=== PATIENT | male | born 1975 ===

== ENCOUNTER 2020-10-28 01:10 | Inpatient (IN) | payer OTHER, SELFPAY ==
--- NOTE | 2020-10-28 01:33 | Emergency Department Report ---
ED General Adult HPI - General Chief complaint: Dyspnea/Respdistress Stated complaint: HAJA, COVID PUI?: Yes Time Seen by Provider: 10/28/20 01:14 Source: patient, EMS ( EMS documentation not available at time of chart dic tation ), RN notes reviewed Mode of arrival: Stretcher Limitations: Physical Limitation - History of Present Illness Initial comments: The patient was evaluated in the emergency department for symptoms described in the history of present illness. He/she was evaluated in the context of the global COVID-19 pandemic, which necessitated consideration that the patient might be at risk for infection with the virus that causes COVID-19. Institutional protocols and algorithms that pertain to the evaluation of patients at risk for COVID-19 are in a state of rapid change based on information released by regulatory bodies including the CDC and federal and state organizations. These policies and algorithms were followed during the patient's care in the emergency department. Please note that these policies, procedures and recommendations changed on a rapid basis. Primary CARE doctor: Sade miles The patient is a 44-year-old gentleman. He was diagnosed with Covid around 7 to 8 days ago. He is brought to the hospital by emergency medical services with a complaint of chest tightness, cough, shortness of breath, malaise and fatigue. -: Gradual, days(s) Location: head, chest, back, left, right, upper extremity, lower extremity Quality: aching Consistency: constant Improves with: rest Worsens with: movement - Related Data Home Medications Medication Instructions Recorded Confirmed Last Taken Aspirin BABY CHEW TAB 81 mg PO DAILY 10/28/20 10/28/20 Unknown Metoprolol 12.5 mg PO BID 10/28/20 10/28/20 10/26/20 Vitamin C 1 tab PO DAILY 10/28/20 10/28/20 10/26/20 Allergies Allergy/AdvReac Type Severity Reaction Status Date / Time No Known Allergies Allergy Verified 10/28/20 01:30 ED Review of Systems ROS: Stated complaint: HAJA, COVID Other details as noted in HPI Constitutional: malaise, weakness, other (Loss of taste and smell) ENT: congestion Respiratory: cough, shortness of breath Cardiovascular: chest pain Gastrointestinal: denies: abdominal pain, vomiting Genitourinary: denies: dysuria Musculoskeletal: arthralgia, myalgia Neurological: headache, weakness Psychiatric: anxiety ED Past Medical Hx - Medications Home Medications: Home Medications Medication Instructions Recorded Confirmed Last Taken Type Aspirin BABY CHEW TAB 81 mg PO DAILY 10/28/20 10/28/20 Unknown History Metoprolol 12.5 mg PO BID 10/28/20 10/28/20 10/26/20 History Vitamin C 1 tab PO DAILY 10/28/20 10/28/20 10/26/20 History ED Physical Exam - General Limitations: Physical Limitation General appearance: alert, anxious - Head Head exam: Present: atraumatic, normocephalic - Eye Eye exam: Present: normal appearance, EOMI. Absent: nystagmus - ENT ENT exam: Present: normal exam, normal orophraynx, mucous membranes moist, normal external ear exam - Neck Neck exam: Present: normal inspection, full ROM. Absent: tenderness, meningismus - Respiratory Respiratory exam: Present: respiratory distress, accessory muscle use, other (Pulmonary auscultation not performed secondary to lack of disposable stethoscope). Absent: stridor - Cardiovascular Cardiovascular Exam: Present: tachycardia (Tachycardic rate on monitor), other (Cardiac auscultation not performed secondary to lack of disposable stethoscope) - GI/Abdominal GI/Abdominal exam: Present: soft. Absent: distended, tenderness, guarding, rebound, rigid, pulsatile mass - Rectal Rectal exam: Present: deferred - Extremities Exam Extremities exam: Present: normal inspection, full ROM, other (2+ pulses noted in the bilateral upper and lower extremities. There is no palpable cord. negative Homans sign. Muscular compartments are soft. The pelvis is stable.). Absent: pedal edema, calf tenderness - Back Exam Back exam: Present: normal inspection, full ROM. Absent: tenderness, CVA tenderness (R), CVA tenderness (L), paraspinal tenderness, vertebral tenderness - Neurological Exam Neurological exam: Present: alert, other (No facial droop. Tongue midline. Extraocular movements intact bilaterally. Facial sensation intact to light touch in V1, V2, V3 distribution bilaterally. 5 and a 5 strength in 4 extremities. Sensation intact to light touch in 4 extremities.). Absent: motor sensory deficit - Psychiatric Psychiatric exam: Present: anxious - Skin Skin exam: Present: warm, dry, intact, normal color. Absent: rash ED Course Vital Signs 10/28/20 10/28/20 10/28/20 01:20 01:30 01:46 Temperature 98.5 F Pulse Rate 109 H 108 H 114 H Respiratory 40 H 45 H 28 H Rate Blood Pressure 133/92 122/88 Blood Pressure 133/92 [Left] O2 Sat by Pulse 98 98 99 Oximetry 10/28/20 10/28/20 10/28/20 01:47 02:00 02:16 Temperature Pulse Rate 108 H 105 H Respiratory 18 26 H 43 H Rate Blood Pressure 117/87 118/85 Blood Pressure [Left] O2 Sat by Pulse 100 Oximetry 10/28/20 10/28/20 10/28/20 02:30 02:46 02:47 Temperature Pulse Rate 105 H 105 H Respiratory 38 H 22 18 Rate Blood Pressure 128/79 127/86 Blood Pressure [Left] O2 Sat by Pulse 99 99 Oximetry 10/28/20 10/28/20 10/28/20 03:00 03:16 03:30 Temperature Pulse Rate 102 H 97 H 97 H Respiratory 29 H 35 H 38 H Rate Blood Pressure 125/86 116/80 118/81 Blood Pressure [Left] O2 Sat by Pulse 98 100 100 Oximetry 10/28/20 10/28/20 10/28/20 03:46 04:30 04:46 Temperature Pulse Rate 101 H 105 H 99 H Respiratory 37 H 39 H 46 H Rate Blood Pressure 116/78 121/80 118/78 Blood Pressure [Left] O2 Sat by Pulse 98 95 97 Oximetry 10/28/20 04:50 Temperature Pulse Rate 96 H Respiratory 34 H Rate Blood Pressure 118/78 Blood Pressure [Left] O2 Sat by Pulse 99 Oximetry - Reevaluation(s) Reevaluation #1: 10/28/20 02:57 Patient improved on high flow high humidity nasal cannula. Laboratory studies reviewed and appreciated. Transaminitis likely secondary to Covid. [facility] physician, Dr. Moran to admit to [facility] ED Medical Decision Making - Lab Data Result diagrams: 10/29/20 05:50 10/30/20 05:46 Vital Signs 10/28/20 10/28/20 10/28/20 01:20 01:47 02:00 Temperature 98.5 F Pulse Rate 109 H Respiratory 40 H 18 Rate Blood Pressure 133/92 [Left] O2 Sat by Pulse 98 99 Oximetry Lab Results 10/28/20 10/28/20 10/28/20 Range/Units 01:58 01:58 01:58 WBC 11.0 (4.5-11.0) K/mm3 RBC 4.73 (3.65-5.03) M/mm3 Hgb 15.4 H (11.8-15.2) gm/dl Hct 42.8 (35.5-45.6) % MCV 91 (84-94) fl MCH 33 H (28-32) pg MCHC 36 H (32-34) % RDW 13.8 (13.2-15.2) % Plt Count 267 (140-440) K/mm3 Add Manual Diff Complete Total Counted 100 Seg Neutrophils % Grit Removal Operator Seg Neuts % (Manual) 97.0 H (40.0-70.0) % Lymphocytes % (Manual) 1.0 L (13.4-35.0) % Monocytes % (Manual) 2.0 (0.0-7.3) % Nucleated RBC % Not Reportable Seg Neutrophils # Man 10.7 H (1.8-7.7) K/mm3 Band Neutrophils # 0.0 K/mm3 Lymphocytes # (Manual) 0.1 L (1.2-5.4) K/mm3 Abs React Lymphs (Man) 0.0 K/mm3 Monocytes # (Manual) 0.2 (0.0-0.8) K/mm3 Eosinophils # (Manual) 0.0 (0.0-0.4) K/mm3 Basophils # (Manual) 0.0 (0.0-0.1) K/mm3 Metamyelocytes # 0.0 K/mm3 Myelocytes # 0.0 K/mm3 Promyelocytes # 0.0 K/mm3 Blast Cells # 0.0 K/mm3 WBC Morphology Not Reportable Hypersegmented Neuts Not Reportable Hyposegmented Neuts Not Reportable Hypogranular Neuts Not Reportable Smudge Cells Not Reportable Toxic Granulation Not Reportable Toxic Vacuolation Not Reportable Dohle Bodies Not Reportable Pelger-Huet Anomaly Not Reportable Trey Rods Not Reportable Platelet Estimate Consistent w auto Clumped Platelets Not Reportable Plt Clumps, EDTA Not Reportable Large Platelets Not Reportable Giant Platelets Not Reportable Platelet Satelliting Not Reportable Plt Morphology Comment Not Reportable RBC Morphology Normal Dimorphic RBCs Not Reportable Polychromasia Not Reportable Hypochromasia Not Reportable Poikilocytosis Not Reportable Anisocytosis Not Reportable Microcytosis Not Reportable Macrocytosis Not Reportable Spherocytes Not Reportable Pappenheimer Bodies Not Reportable Sickle Cells Not Reportable Target Cells Not Reportable Tear Drop Cells Not Reportable Ovalocytes Not Reportable Helmet Cells Not Reportable [place] Bodies Not Reportable [place] Rings Not Reportable [place] Cells Not Reportable Bite Cells Not Reportable Crenated Cell Not Reportable Elliptocytes Not Reportable Acanthocytes (Spur) Not Reportable Rouleaux Not Reportable Hemoglobin C Crystals Not Reportable Schistocytes Not Reportable Malaria parasites Not Reportable Froylan Bodies Not Reportable Hem Pathologist Commnt No PT (12.2-14.9) Sec. INR (0.87-1.13) D-Dimer (0-234) ng/mlDDU Sodium 135 L (137-145) mmol/L Potassium 3.6 (3.6-5.0) mmol/L Chloride 96.1 L (98-107) mmol/L Carbon Dioxide 26 (22-30) mmol/L Anion Gap 17 mmol/L BUN 8 L (9-20) mg/dL Glucose 130 H (75-100) mg/dL Lactic Acid 1.40 (0.7-2.0) mmol/L Calcium 8.8 (8.4-10.2) mg/dL Magnesium 2.20 (1.7-2.3) mg/dL Total Bilirubin 1.00 (0.1-1.2) mg/dL AST 45 H (5-40) units/L ALT 69 H (7-56) units/L Alkaline Phosphatase 189 H (35-129) units/L Lactate Dehydrogenase (91-180) units/L Troponin T (0.00-0.029) ng/mL C-Reactive Protein (0.00-1.30) mg/dL NT-Pro-B Natriuret Pep (0-450) pg/mL Total Protein 7.7 (6.3-8.2) g/dL Albumin 3.6 L (3.9-5) g/dL Albumin/Globulin Ratio 0.9 % 10/28/20 10/28/20 10/28/20 Range/Units 01:58 01:58 01:58 WBC (4.5-11.0) K/mm3 RBC (3.65-5.03) M/mm3 Hgb (11.8-15.2) gm/dl Hct (35.5-45.6) % MCV (84-94) fl MCH (28-32) pg MCHC (32-34) % RDW (13.2-15.2) % Plt Count (140-440) K/mm3 Add Manual Diff Total Counted Seg Neutrophils % Seg Neuts % (Manual) (40.0-70.0) % Lymphocytes % (Manual) (13.4-35.0) % Monocytes % (Manual) (0.0-7.3) % Nucleated RBC % Seg Neutrophils # Man (1.8-7.7) K/mm3 Band Neutrophils # K/mm3 Lymphocytes # (Manual) (1.2-5.4) K/mm3 Abs React Lymphs (Man) K/mm3 Monocytes # (Manual) (0.0-0.8) K/mm3 Eosinophils # (Manual) (0.0-0.4) K/mm3 Basophils # (Manual) (0.0-0.1) K/mm3 Metamyelocytes # K/mm3 Myelocytes # K/mm3 Promyelocytes # K/mm3 Blast Cells # K/mm3 WBC Morphology Hypersegmented Neuts Hyposegmented Neuts Hypogranular Neuts Smudge Cells Toxic Granulation Toxic Vacuolation Dohle Bodies Pelger-Huet Anomaly Trey Rods Platelet Estimate Clumped Platelets Plt Clumps, EDTA Large Platelets Giant Platelets Platelet Satelliting Plt Morphology Comment RBC Morphology Dimorphic RBCs Polychromasia Hypochromasia Poikilocytosis Anisocytosis Microcytosis Macrocytosis Spherocytes Pappenheimer Bodies Sickle Cells Target Cells Tear Drop Cells Ovalocytes Helmet Cells [place] Bodies [place] Rings Faheem Cells Bite Cells Crenated Cell Elliptocytes Acanthocytes (Spur) Rouleaux Hemoglobin C Crystals Schistocytes Malaria parasites Froylan Bodies Hem Pathologist Commnt PT 13.2 (12.2-14.9) Sec. INR 1.01 (0.87-1.13) D-Dimer 227.37 (0-234) ng/mlDDU Sodium (137-145) mmol/L Potassium (3.6-5.0) mmol/L Chloride (98-107) mmol/L Carbon Dioxide (22-30) mmol/L Anion Gap mmol/L BUN (9-20) mg/dL Glucose Cancelled (75-100) mg/dL Lactic Acid (0.7-2.0) mmol/L Calcium (8.4-10.2) mg/dL Magnesium (1.7-2.3) mg/dL Total Bilirubin (0.1-1.2) mg/dL AST (5-40) units/L ALT (7-56) units/L Alkaline Phosphatase (35-129) units/L Lactate Dehydrogenase 339 H (91-180) units/L Troponin T 0.022 (0.00-0.029) ng/mL C-Reactive Protein 32.80 H (0.00-1.30) mg/dL NT-Pro-B Natriuret Pep 1661 H (0-450) pg/mL Total Protein (6.3-8.2) g/dL Albumin (3.9-5) g/dL Albumin/Globulin Ratio % - EKG Data -: EKG Interpreted by Me EKG shows normal: sinus rhythm Rate: tachycardia - EKG Data When compared to previous EKG there are: previous EKG unavailable 10/28/20 02:03 EKG interpreted at 01: 54 Sinus rhythm, tachycardia, 109 bpm. Normal axis, right bundle branch block, QTC prolonged, 503 ms. OK interval 163 ms. This is an abnormal EKG. This is not a STEMI. There is no prior for comparison. - Radiology Data Radiology results: pending, report reviewed, image reviewed interpreted by me: 1 view x-ray of the chest shows multilobar infiltrates. No obvious pneumothorax. [facility] [address] [place] [address] XRay Report Signed Patient: BENITEZ GIRALDO MR#: [id number] : 1975 Acct:[id number] Age/Sex: 44 / M ADM Date: 10/28/20 Loc: ED Attending Dr: Ordering Physician: JULIO MC MD Date of Service: 10/28/20 Procedure(s): XR chest 1V ap Accession Number(s): [id number] cc: JULIO MC MD Fluoro Time In Minutes: CHEST 1 VIEW INDICATION: Dyspnea COMPARISON: None FINDINGS: SUPPORT DEVICES: None. HEART / MEDIASTINUM: No significant abnormality. LUNGS / PLEURA: Diffuse interstitial and patchy airspace pulmonary process.. No pneumothorax. ADDITIONAL FINDINGS: IMPRESSION: 1. Diffuse pulmonary process, pulmonary edema is a concern. Pneumonia could have a similar appearance Signer Name: Mikael Soares MD Signed: 10/28/2020 2:01 AM Workstation Name: [id number] Transcribed By: RAJAN Dictated By: Mikael Soares MD Electronically Authenticated By: Mikael Soares MD Signed Date/Time: 10/28/20200 DD/ 0 - Medical Decision Making Differential diagnosis, including but not limited to: COVID-19, respiratory failure, Covid pneumonia Assessment and plan: 44-year-old gentleman diagnosed with Covid about 8 days ago, presenting with probable symptomatic Covid, manifest by tachycardia, tachypnea, hypoxia, and multiple pulmonary infiltrates. Place patient on tube backer, isolation, and obtain appropriate laboratory studies. Start antibiotics, steroids, and high flow high humidity nasal cannula . Please courtesy consultation for infectious disease, defer to inpatient team to follow-up. I recommended admission for the aforementioned. Patient agreeable to this plan of care. Appreciate the patient meets systemic inflammatory response syndrome criteria, manifest by the aforementioned abnormal vital signs, however, given Covid propensity to develop acute respiratory distress syndrome, we will withhold 30 cc/kg bolus of IV fluids. We will provide gentle hydration. Critical Care Time: Yes Critical care time in (mins) excluding proc time.: 35 Critical care attestation.: If time is entered above; I have spent that time in minutes in the direct care of this critically ill patient, excluding procedure time. ED Disposition Clinical Impression: COVID-19, Acute respiratory failure with hypoxia Disposition: OP ADMIT IP TO THIS HOSP Is pt being admited?: Yes Does the pt Need Aspirin: No Condition: Serious
[2020-10-28] MEDS: dexAMETHasone 4 MG/ML VIAL IV ONE (01:47)
[2020-10-28] MEDS: ACETAMINOPHEN 325 MG TAB PO ONE (01:47)
[2020-10-28] MEDS ORDERED: AZITHROMYCIN/NS 500 MG/250 ML 500 MG/250 ML BAG IV ONE (02:00)
[2020-10-28] MEDS ORDERED: cefTRIAXone/NS 1 GM/50 ML 1 GM/50 ML BAG IV ONE (02:00)
[2020-10-28] MEDS ORDERED: SODIUM CHLORIDE 0.9% 1000 ML 1,000 ML IV ONE (02:04)
--- NOTE | 2020-10-28 02:06 | XRay Report ---
CHEST 1 VIEW INDICATION: Dyspnea COMPARISON: None FINDINGS: SUPPORT DEVICES: None. HEART / MEDIASTINUM: No significant abnormality. LUNGS / PLEURA: Diffuse interstitial and patchy airspace pulmonary process.. No pneumothorax. ADDITIONAL FINDINGS: IMPRESSION: 1. Diffuse pulmonary process, pulmonary edema is a concern. Pneumonia could have a similar appearance Signer Name: Mikael Soares MD Signed: 10/28/2020 2:01 AM Workstation Name: [id number]
[2020-10-28 02:14] LABS: Mean Corpuscular HGB Conc 36 % (32-34); Mean Corpuscular Volume 91 fl (84-94); Platelet Count 267 K/mm3 (140-440); Red Blood Count 4.73 M/mm3 (3.65-5.03); Red Cell Distribution Width 13.8 % (13.2-15.2)
[2020-10-28 02:15] LABS: Hematocrit 42.8 % (35.5-45.6); Hemoglobin 15.4 gm/dl (11.8-15.2)
[2020-10-28 02:24] LABS: INR 1.01 (0.87-1.13)
[2020-10-28 02:45] LABS: Total Cells Counted 100
[2020-10-28 02:46] LABS: Platelet Estimate Consistent w Auto; RBC Morphology Normal
[2020-10-28 02:51] LABS: Alanine Aminotransferase 69 units/L (7-56); Albumin 3.6 g/dL (3.9-5); Blood Urea Nitrogen 8 mg/dL (9-20); Calcium 8.8 mg/dL (8.4-10.2); Hemolysis Index 1
[2020-10-28 02:52] LABS: C-Reactive Protein 32.8 mg/dL (0.00-1.30)
[2020-10-28 03:03] LABS: BUN/Creatinine Ratio 13
[2020-10-28] MEDS ORDERED: ALBUTEROL 2.5 MG/3 ML NEBU IH PRN (03:35)
[2020-10-28] MEDS ORDERED: ONDANSETRON 4 MG/2 ML INJ IV PRN (03:35)
[2020-10-28] MEDS ORDERED: hydrALAZINE 20 MG/1 ML INJ IV PRN (03:36)
--- NOTE | 2020-10-28 03:43 | History and Physical Report ---
History of Present Illness Date of examination: 10/28/20 Date of admission: 10/28/20 02:57 Chief complaint: Dyspnea Respiratory distress COVID-19 History of present illness: 44-year-old gentleman with no significant past medical history was brought to the emergency room because of shortness of breath coughing and chest tightness . Patient was diagnosed with Covid around 7 to 8 days ago. He is brought to the hospital by emergency medical services with a complaint of chest tightness, cough, shortness of breath, malaise and fatigue. In the emergency room patient is found to have acute hypoxic respiratory failure and Covid pneumonia Medications and Allergies Allergies Allergy/AdvReac Type Severity Reaction Status Date / Time No Known Allergies Allergy Verified 10/28/20 01:30 Review of Systems Constitutional: fatigue, malaise Cardiovascular: shortness of breath, dyspnea on exertion Respiratory: cough, shortness of breath, dyspnea on exertion Exam - Constitutional Vitals: Temp Pulse Resp BP Pulse Ox 98.5 F 109 H 18 133/92 99 10/28/20 01:20 10/28/20 01:20 10/28/20 01:47 10/28/20 01:20 10/28/20 02:00 General appearance: Present: no acute distress, well-nourished - EENT Eyes: Present: PERRL ENT: hearing intact, clear oral mucosa - Neck Neck: Present: supple, normal ROM - Respiratory Respiratory effort: labored, other (respiratory distress, accessory muscle use, other (Pulmonary auscultation not performed secondary to lack of disposable stethoscope). Absent: stridor) Respiratory: bilateral: diminished - Cardiovascular Heart Sounds: Present: S1 & S2. Absent: rub, click - Extremities Extremities: pulses symmetrical, No edema Peripheral Pulses: within normal limits - Abdominal General gastrointestinal: Present: soft, non-tender, non-distended, normal bowel sounds Male genitourinary: Present: normal - Integumentary Integumentary: Present: clear, warm, dry - Musculoskeletal Musculoskeletal: gait normal, strength equal bilaterally - Psychiatric Psychiatric: appropriate mood/affect, intact judgment & insight - Neurologic Neurologic: CNII-XII intact, moves all extremities HEART Score - HEART Score Troponin: Troponin T 0.022 ng/mL (0.00-0.029) 10/28/20 01:58 Results - Labs CBC & Chem 7: 10/28/20 01:58 10/28/20 01:58 Labs: Laboratory Last Values WBC 11.0 K/mm3 (4.5-11.0) 10/28/20 01:58 RBC 4.73 M/mm3 (3.65-5.03) 10/28/20 01:58 Hgb 15.4 gm/dl (11.8-15.2) H 10/28/20 01:58 Hct 42.8 % (35.5-45.6) 10/28/20 01:58 MCV 91 fl (84-94) 10/28/20 01:58 MCH 33 pg (28-32) H 10/28/20 01:58 MCHC 36 % (32-34) H 10/28/20 01:58 RDW 13.8 % (13.2-15.2) 10/28/20 01:58 Plt Count 267 K/mm3 (140-440) 10/28/20 01:58 Add Manual Diff Complete 10/28/20 01:58 Total Counted 100 10/28/20 01:58 Seg Neutrophils % Rivet Tosser 10/28/20 01:58 Seg Neuts % (Manual) 97.0 % (40.0-70.0) H 10/28/20 01:58 Lymphocytes % (Manual) 1.0 % (13.4-35.0) L 10/28/20 01:58 Monocytes % (Manual) 2.0 % (0.0-7.3) 10/28/20 01:58 Nucleated RBC % Not Reportable 10/28/20 01:58 Seg Neutrophils # Man 10.7 K/mm3 (1.8-7.7) H 10/28/20 01:58 Band Neutrophils # 0.0 K/mm3 10/28/20 01:58 Lymphocytes # (Manual) 0.1 K/mm3 (1.2-5.4) L 10/28/20 01:58 Abs React Lymphs (Man) 0.0 K/mm3 10/28/20 01:58 Monocytes # (Manual) 0.2 K/mm3 (0.0-0.8) 10/28/20 01:58 Eosinophils # (Manual) 0.0 K/mm3 (0.0-0.4) 10/28/20 01:58 Basophils # (Manual) 0.0 K/mm3 (0.0-0.1) 10/28/20 01:58 Metamyelocytes # 0.0 K/mm3 10/28/20 01:58 Myelocytes # 0.0 K/mm3 10/28/20 01:58 Promyelocytes # 0.0 K/mm3 10/28/20 01:58 Blast Cells # 0.0 K/mm3 10/28/20 01:58 WBC Morphology Not Reportable 10/28/20 01:58 Hypersegmented Neuts Not Reportable 10/28/20 01:58 Hyposegmented Neuts Not Reportable 10/28/20 01:58 Hypogranular Neuts Not Reportable 10/28/20 01:58 Smudge Cells Not Reportable 10/28/20 01:58 Toxic Granulation Not Reportable 10/28/20 01:58 Toxic Vacuolation Not Reportable 10/28/20 01:58 Dohle Bodies Not Reportable 10/28/20 01:58 Pelger-Huet Anomaly Not Reportable 10/28/20 01:58 Trey Rods Not Reportable 10/28/20 01:58 Platelet Estimate Consistent w auto 10/28/20 01:58 Clumped Platelets Not Reportable 10/28/20 01:58 Plt Clumps, EDTA Not Reportable 10/28/20 01:58 Large Platelets Not Reportable 10/28/20 01:58 Giant Platelets Not Reportable 10/28/20 01:58 Platelet Satelliting Not Reportable 10/28/20 01:58 Plt Morphology Comment Not Reportable 10/28/20 01:58 RBC Morphology Normal 10/28/20 01:58 Dimorphic RBCs Not Reportable 10/28/20 01:58 Polychromasia Not Reportable 10/28/20 01:58 Hypochromasia Not Reportable 10/28/20 01:58 Poikilocytosis Not Reportable 10/28/20 01:58 Anisocytosis Not Reportable 10/28/20 01:58 Microcytosis Not Reportable 10/28/20 01:58 Macrocytosis Not Reportable 10/28/20 01:58 Spherocytes Not Reportable 10/28/20 01:58 Pappenheimer Bodies Not Reportable 10/28/20 01:58 Sickle Cells Not Reportable 10/28/20 01:58 Target Cells Not Reportable 10/28/20 01:58 Tear Drop Cells Not Reportable 10/28/20 01:58 Ovalocytes Not Reportable 10/28/20 01:58 Helmet Cells Not Reportable 10/28/20 01:58 [place] Bodies Not Reportable 10/28/20 01:58 [place] Rings Not Reportable 10/28/20 01:58 [place] Cells Not Reportable 10/28/20 01:58 Bite Cells Not Reportable 10/28/20 01:58 Crenated Cell Not Reportable 10/28/20 01:58 Elliptocytes Not Reportable 10/28/20 01:58 Acanthocytes (Spur) Not Reportable 10/28/20 01:58 Rouleaux Not Reportable 10/28/20 01:58 Hemoglobin C Crystals Not Reportable 10/28/20 01:58 Schistocytes Not Reportable 10/28/20 01:58 Malaria parasites Not Reportable 10/28/20 01:58 Froylan Bodies Not Reportable 10/28/20 01:58 Hem Pathologist Commnt No 10/28/20 01:58 PT 13.2 Sec. (12.2-14.9) 10/28/20 01:58 INR 1.01 (0.87-1.13) 10/28/20 01:58 D-Dimer 227.37 ng/mlDDU (0-234) 10/28/20 01:58 Sodium 135 mmol/L (137-145) L 10/28/20 01:58 Potassium 3.6 mmol/L (3.6-5.0) 10/28/20 01:58 Chloride 96.1 mmol/L (98-107) L 10/28/20 01:58 Carbon Dioxide 26 mmol/L (22-30) 10/28/20 01:58 Anion Gap 17 mmol/L 10/28/20 01:58 BUN 8 mg/dL (9-20) L 10/28/20 01:58 Creatinine 0.6 mg/dL (0.8-1.3) L 10/28/20 01:58 Estimated GFR > 60 ml/min 10/28/20 01:58 BUN/Creatinine Ratio 13 % 10/28/20 01:58 Glucose 130 mg/dL (75-100) H 10/28/20 01:58 Glucose Cancelled 10/28/20 01:58 Lactic Acid 1.40 mmol/L (0.7-2.0) 10/28/20 01:58 Calcium 8.8 mg/dL (8.4-10.2) 10/28/20 01:58 Magnesium 2.20 mg/dL (1.7-2.3) 10/28/20 01:58 Ferritin 1631.0 ng/mL (30.0-300.0) H 10/28/20 01:58 Total Bilirubin 1.00 mg/dL (0.1-1.2) 10/28/20 01:58 AST 45 units/L (5-40) H 10/28/20 01:58 ALT 69 units/L (7-56) H 10/28/20 01:58 Alkaline Phosphatase 189 units/L (35-129) H 10/28/20 01:58 Lactate Dehydrogenase 339 units/L (91-180) H 10/28/20 01:58 Troponin T 0.022 ng/mL (0.00-0.029) 10/28/20 01:58 C-Reactive Protein 32.80 mg/dL (0.00-1.30) H 10/28/20 01:58 NT-Pro-B Natriuret Pep 1661 pg/mL (0-450) H 10/28/20 01:58 Total Protein 7.7 g/dL (6.3-8.2) 10/28/20 01:58 Albumin 3.6 g/dL (3.9-5) L 10/28/20 01:58 Albumin/Globulin Ratio 0.9 % 10/28/20 01:58 - Imaging and Cardiology Chest x-ray: report reviewed Assessment and Plan VTE prophylaxis?: Chemical Plan of care discussed with patient/family: Yes - Patient Problems (1) Acute respiratory failure with hypoxia Current Visit: Yes Status: Acute Plan to address problem: Admit to the medical telemetry high flow oxygen. DuoNeb by nebulizer every 4 hours. Albuterol by nebulizer every 4 hours as needed. Rocephin 2 2 g IV daily and Zithromax 500 mg IV daily. His dexamethasone 6 mg IV daily. We will consult infectious disease for evaluation. Consult pulmonary if needed (2) Pneumonia Current Visit: Yes Status: Acute Plan to address problem: DuoNeb by nebulizer every 4 hours. Albuterol by nebulizer every 4 hours as needed. Rocephin 2 2 g IV daily and Zithromax 500 mg IV daily. His dexamethasone 6 mg IV daily. We will consult infectious disease for evaluation. Consult pulmonary if needed (3) COVID-19 Current Visit: Yes Status: Acute Plan to address problem: DuoNeb by nebulizer every 4 hours. Albuterol by nebulizer every 4 hours as needed. Rocephin 2 2 g IV daily and Zithromax 500 mg IV daily. His dexamethasone 6 mg IV daily. We will consult infectious disease for evaluation. Consult pulmonary if needed. Follow the Covid inflammatory marker and Covid PCR (4) DVT prophylaxis Current Visit: Yes Status: Acute Plan to address problem: Heparin 5000 units subcu every 8 hours for DVT prophylaxis. Protonix 40 mg p.o. daily for GI prophylaxis. Patient is a full code
[2020-10-28] MEDS: HEPARIN 5,000 UNIT/1 ML VIAL SUB-Q SCH ×3 (05:19→20:59)
[2020-10-28] MEDS: PANTOPRAZOLE 40 MG TAB PO SCH (08:04)
--- NOTE | 2020-10-28 08:33 | Event Note ---
Date: 10/28/20 Patient seen and examined, still with severe shortness of breath, on High flow oxygen. Spoke to family and confirmed recent diagnosis of COVID19. Pulmonary consult to assist with management of oxygen Encouraged Prone position.
[2020-10-28] MEDS: IPRATROPIUM/ALBUTEROL SULFATE 3 ML AMPUL.NEB IH SCH ×3 (09:55→20:04)
[2020-10-28] MEDS: dexAMETHasone 4 MG/ML VIAL IV SCH (10:23)
--- NOTE | 2020-10-28 10:47 | Consultation ---
History of Present Illness Consult date: 10/28/20 Reason for consult: dyspnea, cough, hypoxemia, pneumonia History of present illness: 44-year-old gentleman with no significant past medical history was brought to the emergency room because of shortness of breath coughing and chest tightness . Patient was diagnosed with Covid around 7 to 8 days ago. He is brought to the hospital by emergency medical services with a complaint of chest tightness, cough, shortness of breath, malaise and fatigue. In the emergency room patient is found to have acute hypoxic respiratory failure and Covid pneumonia Patient alert, awake. Still complaining shortness of breath even with slight exertion. Still complaining some chest pain. Still has cough mostly non productive. Patient is on Vapotherm, FIO2 65% and O2 saturation running 92%. Increased FIO2 to 70%. Patient running Low grade temp. Has mild leukocytosis. Chest xray done 10/28/20 reported Diffuse pulmonary process, pulmonary edema is a concern. Pneumonia could have a similar appearance. Patient works in construction. Denies smoking, alcohol or drug abuse. and has five children. No known drug allergies. Patient is on Zithromax, Ceftriaxone, dexamethasone, S/C Heparin, Protonix and REMDESIVIR. Medications and Allergies Allergies Allergy/AdvReac Type Severity Reaction Status Date / Time No Known Allergies Allergy Verified 10/28/20 01:30 Home Medications Medication Instructions Recorded Confirmed Last Taken Type Aspirin BABY CHEW TAB 81 mg PO DAILY 10/28/20 10/28/20 Unknown History Metoprolol 12.5 mg PO BID 10/28/20 10/28/20 10/26/20 History Vitamin C 1 tab PO DAILY 10/28/20 10/28/20 10/26/20 History Active Meds: Active Medications Acetaminophen (Acetaminophen 325 Mg Tab) 650 mg PO Q4H PRN PRN Reason: Pain MILD(1-3)/Fever >100.5/RIVERA Albuterol (Albuterol 2.5 Mg/3 Ml Nebu) 2.5 mg IH Q4HRT PRN PRN Reason: Shortness Of Breath Albuterol/Ipratropium (Ipratropium/Albuterol Sulfate 3 Ml Ampul.Neb) 1 ampul IH Q6HRT [facility] Last Admin: 10/28/20 09:55 Dose: Not Given Documented by: Ascorbic Acid (Ascorbic Acid 500 Mg Tab) 1,000 mg PO BID [facility] Cholecalciferol (Cholecalciferol (Vit D3) 5,000 Unit Tab) 5,000 unit PO DAILY [facility] Dexamethasone (Dexamethasone 4 Mg/Ml Vial) 6 mg IV DAILY [facility] Stop: 11/06/20 10:01 Last Admin: 10/28/20 10:23 Dose: 6 mg Documented by: Furosemide (Furosemide 40 Mg/4 Ml Inj) 40 mg IV QDAY [facility] Stop: 10/30/20 10:01 Heparin Sodium (Porcine) (Heparin 5,000 Unit/1 Ml Vial) 5,000 unit SUB-Q Q8HR [facility] Last Admin: 10/28/20 05:19 Dose: 5,000 unit Documented by: Hydralazine HCl (Hydralazine 20 Mg/1 Ml Inj) 10 mg IV Q6H PRN PRN Reason: htn Ceftriaxone Sodium (Rocephin/Ns 2 Gm/100 Ml) 2 gm in 100 mls @ 200 mls/hr IV QHS [facility]; Protocol Stop: 10/31/20 22:29 Azithromycin (Zithromax/Ns) 500 mg in 250 mls @ 250 mls/hr IV QHS [facility]; Protocol Stop: 10/31/20 22:59 Ondansetron HCl (Ondansetron 4 Mg/2 Ml Inj) 4 mg IV Q8H PRN PRN Reason: Nausea And Vomiting Pantoprazole Sodium (Pantoprazole 40 Mg Tab) 40 mg PO QDAC [facility] Last Admin: 10/28/20 08:04 Dose: 40 mg Documented by: Sodium Chloride (Sodium Chloride 0.9% 10 Ml Flush Syringe) 10 ml IV BID [facility] Last Admin: 10/28/20 10:23 Dose: 10 ml Documented by: Sodium Chloride (Sodium Chloride 0.9% 10 Ml Flush Syringe) 10 ml IV PRN PRN PRN Reason: LINE FLUSH Zinc Sulfate (Zinc Sulfate 220 Mg Cap) 220 mg PO QDAY [facility] Review of Systems All systems: negative Physical Examination Vital signs: Vital Signs Temp Pulse Resp BP Pulse Ox 98.5 F 109 H 40 H 133/92 98 10/28/20 01:20 10/28/20 01:20 10/28/20 01:20 10/28/20 01:20 10/28/20 01:20 General appearance: alert, appears uncomfortable, other (Shortness of breath even with slight exertion.) Eyes: non-icteric ENT: oropharynx moist Neck: supple Effort: mildly labored Ascultation: Bilateral: rhonchi Cardiovascular: regular rate and rhythm Gastrointestinal: normoactive bowel sounds, soft, non-tender Integumentary: normal Extremities: no cyanosis, no edema Musculoskeletal: no deformities Gait: other (Can not evaluate. Patient is too sick.) normal mental status, non-focal exam, pupils equal and round, CN II-XII normal mood appropriate Results - Laboratory Findings CBC and BMP: 10/29/20 05:50 10/29/20 05:50 PT/INR, D-dimer PT 13.2 Sec. (12.2-14.9) 10/28/20 01:58 INR 1.01 (0.87-1.13) 10/28/20 01:58 D-Dimer 227.37 ng/mlDDU (0-234) 10/28/20 01:58 Abnormal lab findings: Abnormal Labs 10/28/20 10/28/20 10/28/20 01:58 01:58 01:58 Hgb 15.4 H MCH 33 H MCHC 36 H Seg Neuts % (Manual) 97.0 H Lymphocytes % (Manual) 1.0 L Seg Neutrophils # Man 10.7 H Lymphocytes # (Manual) 0.1 L Sodium 135 L Chloride 96.1 L BUN 8 L Creatinine 0.6 L Glucose 130 H Ferritin AST 45 H ALT 69 H Alkaline Phosphatase 189 H Lactate Dehydrogenase 339 H C-Reactive Protein 32.80 H NT-Pro-B Natriuret Pep Albumin 3.6 L 10/28/20 10/28/20 01:58 01:58 Hgb MCH MCHC Seg Neuts % (Manual) Lymphocytes % (Manual) Seg Neutrophils # Man Lymphocytes # (Manual) Sodium Chloride BUN Creatinine Glucose Ferritin 1631.0 H AST ALT Alkaline Phosphatase Lactate Dehydrogenase C-Reactive Protein NT-Pro-B Natriuret Pep 1661 H Albumin - Diagnostic Findings Chest x-ray: report reviewed, image reviewed Additional studies: CHEST 1 VIEW 10/28/20 INDICATION: Dyspnea COMPARISON: None FINDINGS: SUPPORT DEVICES: None. HEART / MEDIASTINUM: No significant abnormality. LUNGS / PLEURA: Diffuse interstitial and patchy airspace pulmonary process.. No pneumothorax. ADDITIONAL FINDINGS: IMPRESSION: 1. Diffuse pulmonary process, pulmonary edema is a concern. Pneumonia could have a similar appearance Assessment and Plan 44-year-old gentleman with no significant past medical history was brought to the emergency room because of shortness of breath coughing and chest tightness . Patient was diagnosed with Covid around 7 to 8 days ago. He is brought to the hospital by emergency medical services with a complaint of chest tightness, cough, shortness of breath, malaise and fatigue. In the emergency room patient is found to have acute hypoxic respiratory failure and Covid pneumonia Patient alert, awake. Still complaining shortness of breath even with slight exertion. Still complaining some chest pain. Still has cough mostly non productive. Patient is on Vapotherm, FIO2 65% and O2 saturation running 92%. Increased FIO2 to 70%. Patient running Low grade temp. Has mild leukocytosis. Chest xray done 10/28/20 reported Diffuse pulmonary process, pulmonary edema is a concern. Pneumonia could have a similar appearance. Patient works in construction. Denies smoking, alcohol or drug abuse. and has five children. No known drug allergies. Patient is on Zithromax, Ceftriaxone, dexamethasone, S/C Heparin, Protonix and REMDESIVIR. - Patient Problems (1) Acute respiratory failure with hypoxia Current Visit: Yes Status: Acute Plan to address problem: Patient is on High flow O2, Vapotherm, FIO2 70%. Patient is on dexamethasone. S/C Heparin. Protonix. Recommend ABGs. (2) COVID-19 Current Visit: Yes Status: Acute Plan to address problem: Patient is on REMDESIVIR and dexamethasone. Management as per infectious disease specialists. (3) Pneumonia due to COVID-19 virus Current Visit: Yes Status: Acute Plan to address problem: Patient is on ceftriaxone and zithromax.
[2020-10-28] MEDS: ZINC SULFATE 220 MG CAP PO SCH (12:28)
[2020-10-28] MEDS: FUROSEMIDE 40 MG/4 ML INJ IV SCH (12:28)
[2020-10-28] MEDS: CHOLECALCIFEROL (VIT D3) 5,000 UNIT TAB PO SCH (12:29)
[2020-10-28] MEDS: ASCORBIC ACID 500 MG TAB PO SCH ×2 (12:29→21:00)
[2020-10-28] MEDS: ACETAMINOPHEN 325 MG TAB PO PRN ×2 (13:11→21:23)
--- NOTE | 2020-10-28 13:24 | Consultation ---
History of Present Illness - Reason for Consult Consult date: 10/28/20 COVID Requesting physician: JULIO MC - History of Present Illness The patient is a 44-year-old male with no significant past medical history admitted to the hospital with COVID-19, respiratory failure and hypoxia. Having low-grade fever, requiring high flow nasal cannula. Labs revealed ferritin 1631, mild transaminitis, CRP 32.8, LDH 339, D-dimer 227. Procalcitonin is pending. Review of Systems: reviewed in the chart, unable to obtain, minimize risk of transmission Medications and Allergies Allergies Allergy/AdvReac Type Severity Reaction Status Date / Time No Known Allergies Allergy Verified 10/28/20 01:30 Home Medications Medication Instructions Recorded Confirmed Last Taken Type Aspirin BABY CHEW TAB 81 mg PO DAILY 10/28/20 10/28/20 Unknown History Metoprolol 12.5 mg PO BID 10/28/20 10/28/20 10/26/20 History Vitamin C 1 tab PO DAILY 10/28/20 10/28/20 10/26/20 History Active Meds: Active Medications Acetaminophen (Acetaminophen 325 Mg Tab) 650 mg PO Q4H PRN PRN Reason: Pain MILD(1-3)/Fever >100.5/RIVERA Last Admin: 10/28/20 13:11 Dose: 650 mg Documented by: Albuterol (Albuterol 2.5 Mg/3 Ml Nebu) 2.5 mg IH Q4HRT PRN PRN Reason: Shortness Of Breath Albuterol/Ipratropium (Ipratropium/Albuterol Sulfate 3 Ml Ampul.Neb) 1 ampul IH Q6HRT [facility] [place] Last Admin: 10/28/20 09:55 Dose: Not Given Documented by: Ascorbic Acid (Ascorbic Acid 500 Mg Tab) 1,000 mg PO BID [facility] [place] Last Admin: 10/28/20 12:29 Dose: 1,000 mg Documented by: Cholecalciferol (Cholecalciferol (Vit D3) 5,000 Unit Tab) 5,000 unit PO DAILY [facility] Last Admin: 10/28/20 12:29 Dose: 5,000 unit Documented by: Dexamethasone (Dexamethasone 4 Mg/Ml Vial) 6 mg IV DAILY [facility] Stop: 11/06/20 10:01 Last Admin: 10/28/20 10:23 Dose: 6 mg Documented by: Furosemide (Furosemide 40 Mg/4 Ml Inj) 40 mg IV QDAY [facility] [place] Stop: 10/30/20 10:01 Last Admin: 10/28/20 12:28 Dose: 40 mg Documented by: Heparin Sodium (Porcine) (Heparin 5,000 Unit/1 Ml Vial) 5,000 unit SUB-Q Q8HR [facility] Last Admin: 10/28/20 05:19 Dose: 5,000 unit Documented by: Hydralazine HCl (Hydralazine 20 Mg/1 Ml Inj) 10 mg IV Q6H PRN PRN Reason: htn Ceftriaxone Sodium (Rocephin/Ns 2 Gm/100 Ml) 2 gm in 100 mls @ 200 mls/hr IV QHS [facility]; Protocol Stop: 10/31/20 22:29 Azithromycin (Zithromax/Ns) 500 mg in 250 mls @ 250 mls/hr IV QHS [facility] [place]; Protocol Stop: 10/31/20 22:59 Ondansetron HCl (Ondansetron 4 Mg/2 Ml Inj) 4 mg IV Q8H PRN PRN Reason: Nausea And Vomiting Pantoprazole Sodium (Pantoprazole 40 Mg Tab) 40 mg PO QDAC [facility] [place] Last Admin: 10/28/20 08:04 Dose: 40 mg Documented by: Sodium Chloride (Sodium Chloride 0.9% 10 Ml Flush Syringe) 10 ml IV BID [facility] [place] Last Admin: 10/28/20 10:23 Dose: 10 ml Documented by: Sodium Chloride (Sodium Chloride 0.9% 10 Ml Flush Syringe) 10 ml IV PRN PRN PRN Reason: LINE FLUSH Zinc Sulfate (Zinc Sulfate 220 Mg Cap) 220 mg PO QDAY [facility] Last Admin: 10/28/20 12:28 Dose: 220 mg Documented by: Physical Examination - Physical Exam Narrative exam: Physical Exam (reviewed in chart to minimize risk of transmission) Constitutional: deferred Head, Ears, Nose: deferred Eyes: deferred Neck: deferred Oral: deferred Cardiovascular: deferred Respiratory: deferred GI: deferred Musculoskeletal: deferred Skin: deferred Hem/Lymphatic: deferred Psych: deferred Neurological: deferred - Constitutional Vitals: Vital Signs Temp Pulse Resp BP Pulse Ox 100.1 F H 97 H 24 127/85 98 10/28/20 10:16 10/28/20 10:16 10/28/20 10:16 10/28/20 10:16 10/28/20 10:16 Temperature -Last 24 Hours Temperature 100.1 F Temperature 98.4 F Temperature 98.5 F Results - Labs CBC & Chem 7: 10/28/20 01:58 10/28/20 01:58 Labs: Abnormal lab results 10/28/20 10/28/20 10/28/20 Range/Units 01:58 01:58 01:58 Hgb 15.4 H (11.8-15.2) gm/dl MCH 33 H (28-32) pg MCHC 36 H (32-34) % Seg Neuts % (Manual) 97.0 H (40.0-70.0) % Lymphocytes % (Manual) 1.0 L (13.4-35.0) % Seg Neutrophils # Man 10.7 H (1.8-7.7) K/mm3 Lymphocytes # (Manual) 0.1 L (1.2-5.4) K/mm3 Sodium 135 L (137-145) mmol/L Chloride 96.1 L (98-107) mmol/L BUN 8 L (9-20) mg/dL Creatinine 0.6 L (0.8-1.3) mg/dL Glucose 130 H (75-100) mg/dL Ferritin (30.0-300.0) ng/mL AST 45 H (5-40) units/L ALT 69 H (7-56) units/L Alkaline Phosphatase 189 H (35-129) units/L Lactate Dehydrogenase 339 H (91-180) units/L C-Reactive Protein 32.80 H (0.00-1.30) mg/dL NT-Pro-B Natriuret Pep (0-450) pg/mL Albumin 3.6 L (3.9-5) g/dL 10/28/20 10/28/20 Range/Units 01:58 01:58 Hgb (11.8-15.2) gm/dl MCH (28-32) pg MCHC (32-34) % Seg Neuts % (Manual) (40.0-70.0) % Lymphocytes % (Manual) (13.4-35.0) % Seg Neutrophils # Man (1.8-7.7) K/mm3 Lymphocytes # (Manual) (1.2-5.4) K/mm3 Sodium (137-145) mmol/L Chloride (98-107) mmol/L BUN (9-20) mg/dL Creatinine (0.8-1.3) mg/dL Glucose (75-100) mg/dL Ferritin 1631.0 H (30.0-300.0) ng/mL AST (5-40) units/L ALT (7-56) units/L Alkaline Phosphatase (35-129) units/L Lactate Dehydrogenase (91-180) units/L C-Reactive Protein (0.00-1.30) mg/dL NT-Pro-B Natriuret Pep 1661 H (0-450) pg/mL Albumin (3.9-5) g/dL - Imaging and Cardiology Chest x-ray: report reviewed, image reviewed (b/l pneumonia) Assessment and Plan Cultures: SARS CoV2 PCR: Pending here, positive as outpatient A/P: 44-year-old male with: #Bilateral pneumonia: Secondary to COVID-19. #Acute hypoxic respiratory failure: On HFNC #Transaminitis: Secondary to COVID-19 Recs: -IV/PO Dexamethasone 6 mg daily x 10 days -Continue empiric antibiotics for now pending procalcitonin -IV remdesivir ordered -Hypoxia worsens requiring noninvasive ventilation, patient would benefit from a dose of IV Tocilizumab -prophylactic anticoagulation based on d-dimer per hospital protocol -trend ferritin, LDH, d-dimer, CRP every 2-3 days for risk stratification and to assess disease progression Angel Hernandez MD, FACP [facility] ([facility] O: [phone] F: [phone]
[2020-10-28 14:41] LABS: Alanine Aminotransferase 59 units/L (7-56); Albumin 3.6 g/dL (3.9-5); Blood Urea Nitrogen 9 mg/dL (9-20); Calcium 8.7 mg/dL (8.4-10.2); Hemolysis Index 12
[2020-10-28 14:47] LABS: BUN/Creatinine Ratio 15
[2020-10-28] MEDS ORDERED: REMDESIVIR 200 MG in SODIUM CHLORIDE 0.9% 250ML 250 ML IV ONE (15:00)
[2020-10-28] MEDS: SODIUM CHLORIDE 0.9% 50 ML IVPB IV SCH (21:00)
[2020-10-29] MEDS: guaiFENesin DM 200/20 MG ORAL LIQD 10 ML PO PRN ×2 (01:15→10:19)
[2020-10-29] MEDS: ACETAMINOPHEN 325 MG TAB PO PRN ×2 (01:15→10:19)
[2020-10-29] MEDS ORDERED: ALBUTEROL 8.5 GM MDI INHALATION IH PRN (01:35)
[2020-10-29] MEDS: cefTRIAXone/NS 2 GM/100 ML 2 GM/100 ML BAG IV SCH (04:23)
[2020-10-29] MEDS: AZITHROMYCIN/NS 500 MG/250 ML 500 MG/250 ML BAG IV SCH (04:24)
[2020-10-29] MEDS: HEPARIN 5,000 UNIT/1 ML VIAL SUB-Q SCH ×3 (06:07→21:45)
[2020-10-29 06:21] LABS: Basophils % (Auto) 0.1 % (0.0-1.8); Hematocrit 40.8 % (35.5-45.6); Hemoglobin 14.5 gm/dl (11.8-15.2); Lymphocytes # (Auto) 0.4 K/mm3 (1.2-5.4); Lymphocytes % (Auto) 5.8 % (13.4-35.0); Mean Corpuscular HGB Conc 36 % (32-34); Mean Corpuscular Volume 91 fl (84-94); Monocytes # (Auto) 0.5 K/mm3 (0.0-0.8); Monocytes % (Auto) 6.3 % (0.0-7.3); Platelet Count 330 K/mm3 (140-440); Red Blood Count 4.51 M/mm3 (3.65-5.03); Red Cell Distribution Width 13.6 % (13.2-15.2)
[2020-10-29 07:32] LABS: Alanine Aminotransferase 71 units/L (7-56); Blood Urea Nitrogen 14 mg/dL (9-20); Calcium 8.4 mg/dL (8.4-10.2); Hemolysis Index 11
[2020-10-29 07:44] LABS: BUN/Creatinine Ratio 23
[2020-10-29] MEDS: PANTOPRAZOLE 40 MG TAB PO SCH (09:00)
[2020-10-29] MEDS ORDERED: ALBUTEROL 2.5 MG/3 ML NEBU IH PRN (09:26)
--- NOTE | 2020-10-29 10:13 | Electrocardiograph Report ---
[facility] Test Date: 2020-10-28 Test Time: 01:54:51 Pat Name: BENITEZ GIRALDO Department: Room: A357 1 Gender: M Government Relations Manager: SAMANTHA : 1975 Requested By: JULIO MC Order Number: [id number] Reading MD: Yuan Reynoso Measurements Intervals [place] Rate: 109 P: 50 MT: 163 QRS: 6 QRSD: 133 T: -5 QT: 372 QTc: 503 Interpretive Statements Sinus tachycardia Right bundle branch block No previous ECG available for comparison Electronically Signed On 10-29-2020 10:13:01 EDT by Yuan Reynoso
[2020-10-29] MEDS: CHOLECALCIFEROL (VIT D3) 5,000 UNIT TAB PO SCH (10:18)
[2020-10-29] MEDS: dexAMETHasone 4 MG/ML VIAL IV SCH (10:19)
[2020-10-29] MEDS: ZINC SULFATE 220 MG CAP PO SCH (10:19)
[2020-10-29] MEDS: FUROSEMIDE 40 MG/4 ML INJ IV SCH (10:19)
[2020-10-29] MEDS: ASCORBIC ACID 500 MG TAB PO SCH ×2 (10:19→21:45)
--- NOTE | 2020-10-29 10:39 | Progress Note ---
Assessment and Plan Assessment and plan: 44-year-old gentleman with no significant past medical history was brought to the emergency room because of shortness of breath coughing and chest tightness . Patient was diagnosed with Covid around 7 to 8 days ago. He is brought to the hospital by emergency medical services with a complaint of chest tightness, cough, shortness of breath, malaise and fatigue. In the emergency room patient is found to have acute hypoxic respiratory failure and Covid pneumonia On discussion patient spouse also was diagnosed with COVID-19 but with a more mild disease. There were plan to get the vaccine but got diagnosed with the disease prior. Sepsis secondary to COVID19 Bilateral Pneumonia COVID19 Transaminitis Persistent Cough Anxiety Plan Continue supportive care, patient continues on high flow at this time still remains anxious. Continue dexamethasone 6 mg to complete 10 days. Remdesivir discontinued due to transaminitis being elevated Pulmonary consulted and input noted. ID input is appreciated awaiting procalcitonin level. Start antitussives medication for cough Encourage prone positioning as tolerated Continue to monitor inflammatory markers DVT and GI prophylaxis Plan of care discussed with the patient and spouse in detail. The high probability of a clinically significant, sudden or life threatening deterioration of the [pulmonary] system(s) required my full and direct attention, intervention and personal management. The aggregate critical care time was [35] minutes. This time is in addition to time spent performing reported procedures but includes the following: [x] Data Review and interpretation [x] Patient assessment and monitoring of vital signs [x] Documentation [x] Medication orders and management History Interval history: Patient seen and examined, still with shortness of breath, unable to sleep last night. Hospitalist Physical - Constitutional Vitals: Temp Pulse Resp BP Pulse Ox 97.6 F 73 20 119/80 96 10/29/20 05:11 10/29/20 05:11 10/29/20 05:11 10/29/20 05:11 10/29/20 08:00 General appearance: Present: mild distress, well-nourished - EENT Eyes: Present: PERRL, EOM intact ENT: clear oral mucosa - Neck Neck: Present: supple, normal ROM - Respiratory Respiratory effort: labored, accessory muscle use Respiratory: bilateral: diminished - Cardiovascular Rhythm: regular Heart Sounds: Present: S1 & S2 - Extremities Extremities: no ischemia, pulses intact, pulses symmetrical, No edema, normal temperature - Abdominal General gastrointestinal: soft, non-tender, non-distended - Integumentary Integumentary: Present: warm - Psychiatric Psychiatric: agitated, depressed - Neurologic Neurologic: CNII-XII intact, moves all extremities - Allied Health Allied health notes reviewed: nursing HEART Score - HEART Score Troponin: Troponin T 0.022 ng/mL (0.00-0.029) 10/28/20 01:58 Results - Labs CBC & Chem 7: 10/29/20 05:50 10/29/20 05:50 Labs: Laboratory Last Values WBC 7.2 K/mm3 (4.5-11.0) 10/29/20 05:50 RBC 4.51 M/mm3 (3.65-5.03) 10/29/20 05:50 Hgb 14.5 gm/dl (11.8-15.2) 10/29/20 05:50 Hct 40.8 % (35.5-45.6) 10/29/20 05:50 MCV 91 fl (84-94) 10/29/20 05:50 MCH 32 pg (28-32) 10/29/20 05:50 MCHC 36 % (32-34) H 10/29/20 05:50 RDW 13.6 % (13.2-15.2) 10/29/20 05:50 Plt Count 330 K/mm3 (140-440) 10/29/20 05:50 Lymph % (Auto) 5.8 % (13.4-35.0) L 10/29/20 05:50 [place] % (Auto) 6.3 % (0.0-7.3) 10/29/20 05:50 Eos % (Auto) 0.0 % (0.0-4.3) 10/29/20 05:50 Baso % (Auto) 0.1 % (0.0-1.8) 10/29/20 05:50 Lymph # (Auto) 0.4 K/mm3 (1.2-5.4) L 10/29/20 05:50 [place] # (Auto) 0.5 K/mm3 (0.0-0.8) 10/29/20 05:50 Eos # (Auto) 0.0 K/mm3 (0.0-0.4) 10/29/20 05:50 Baso # (Auto) 0.0 K/mm3 (0.0-0.1) 10/29/20 05:50 Add Manual Diff Complete 10/28/20 01:58 Total Counted 100 10/28/20 01:58 Seg Neutrophils % 87.8 % (40.0-70.0) H 10/29/20 05:50 Seg Neuts % (Manual) 97.0 % (40.0-70.0) H 10/28/20 01:58 Lymphocytes % (Manual) 1.0 % (13.4-35.0) L 10/28/20 01:58 Monocytes % (Manual) 2.0 % (0.0-7.3) 10/28/20 01:58 Nucleated RBC % Not Reportable 10/28/20 01:58 Seg Neutrophils # 6.4 K/mm3 (1.8-7.7) 10/29/20 05:50 Seg Neutrophils # Man 10.7 K/mm3 (1.8-7.7) H 10/28/20 01:58 Band Neutrophils # 0.0 K/mm3 10/28/20 01:58 Lymphocytes # (Manual) 0.1 K/mm3 (1.2-5.4) L 10/28/20 01:58 Abs React Lymphs (Man) 0.0 K/mm3 10/28/20 01:58 Monocytes # (Manual) 0.2 K/mm3 (0.0-0.8) 10/28/20 01:58 Eosinophils # (Manual) 0.0 K/mm3 (0.0-0.4) 10/28/20 01:58 Basophils # (Manual) 0.0 K/mm3 (0.0-0.1) 10/28/20 01:58 Metamyelocytes # 0.0 K/mm3 10/28/20 01:58 Myelocytes # 0.0 K/mm3 10/28/20 01:58 Promyelocytes # 0.0 K/mm3 10/28/20 01:58 Blast Cells # 0.0 K/mm3 10/28/20 01:58 WBC Morphology Not Reportable 10/28/20 01:58 Hypersegmented Neuts Not Reportable 10/28/20 01:58 Hyposegmented Neuts Not Reportable 10/28/20 01:58 Hypogranular Neuts Not Reportable 10/28/20 01:58 Smudge Cells Not Reportable 10/28/20 01:58 Toxic Granulation Not Reportable 10/28/20 01:58 Toxic Vacuolation Not Reportable 10/28/20 01:58 Dohle Bodies Not Reportable 10/28/20 01:58 Pelger-Huet Anomaly Not Reportable 10/28/20 01:58 Trey Rods Not Reportable 10/28/20 01:58 Platelet Estimate Consistent w auto 10/28/20 01:58 Clumped Platelets Not Reportable 10/28/20 01:58 Plt Clumps, EDTA Not Reportable 10/28/20 01:58 Large Platelets Not Reportable 10/28/20 01:58 Giant Platelets Not Reportable 10/28/20 01:58 Platelet Satelliting Not Reportable 10/28/20 01:58 Plt Morphology Comment Not Reportable 10/28/20 01:58 RBC Morphology Normal 10/28/20 01:58 Dimorphic RBCs Not Reportable 10/28/20 01:58 Polychromasia Not Reportable 10/28/20 01:58 Hypochromasia Not Reportable 10/28/20 01:58 Poikilocytosis Not Reportable 10/28/20 01:58 Anisocytosis Not Reportable 10/28/20 01:58 Microcytosis Not Reportable 10/28/20 01:58 Macrocytosis Not Reportable 10/28/20 01:58 Spherocytes Not Reportable 10/28/20 01:58 Pappenheimer Bodies Not Reportable 10/28/20 01:58 Sickle Cells Not Reportable 10/28/20 01:58 Target Cells Not Reportable 10/28/20 01:58 Tear Drop Cells Not Reportable 10/28/20 01:58 Ovalocytes Not Reportable 10/28/20 01:58 Helmet Cells Not Reportable 10/28/20 01:58 [place] Bodies Not Reportable 10/28/20 01:58 [place] Rings Not Reportable 10/28/20 01:58 Faheem Cells Not Reportable 10/28/20 01:58 Bite Cells Not Reportable 10/28/20 01:58 Crenated Cell Not Reportable 10/28/20 01:58 Elliptocytes Not Reportable 10/28/20 01:58 Acanthocytes (Spur) Not Reportable 10/28/20 01:58 Rouleaux Not Reportable 10/28/20 01:58 Hemoglobin C Crystals Not Reportable 10/28/20 01:58 Schistocytes Not Reportable 10/28/20 01:58 Malaria parasites Not Reportable 10/28/20 01:58 Froylan Bodies Not Reportable 10/28/20 01:58 Hem Pathologist Commnt No 10/28/20 01:58 PT 13.2 Sec. (12.2-14.9) 10/28/20 01:58 INR 1.01 (0.87-1.13) 10/28/20 01:58 D-Dimer 227.37 ng/mlDDU (0-234) 10/28/20 01:58 Sodium 138 mmol/L (137-145) 10/29/20 05:50 Potassium 3.6 mmol/L (3.6-5.0) 10/29/20 05:50 Chloride 100.7 mmol/L (98-107) 10/29/20 05:50 Carbon Dioxide 26 mmol/L (22-30) 10/29/20 05:50 Anion Gap 15 mmol/L 10/29/20 05:50 BUN 14 mg/dL (9-20) 10/29/20 05:50 Creatinine 0.6 mg/dL (0.8-1.3) L 10/29/20 05:50 Estimated GFR > 60 ml/min 10/29/20 05:50 BUN/Creatinine Ratio 23 % 10/29/20 05:50 Glucose 143 mg/dL (75-100) H 10/29/20 05:50 Lactic Acid 1.40 mmol/L (0.7-2.0) 10/28/20 01:58 Calcium 8.4 mg/dL (8.4-10.2) 10/29/20 05:50 Magnesium 2.20 mg/dL (1.7-2.3) 10/28/20 01:58 Ferritin 1631.0 ng/mL (30.0-300.0) H 10/28/20 01:58 Total Bilirubin 0.40 mg/dL (0.1-1.2) 10/29/20 05:50 AST 59 units/L (5-40) H 10/29/20 05:50 ALT 71 units/L (7-56) H 10/29/20 05:50 Alkaline Phosphatase 159 units/L (35-129) H 10/29/20 05:50 Lactate Dehydrogenase 339 units/L (91-180) H 10/28/20 01:58 Troponin T 0.022 ng/mL (0.00-0.029) 10/28/20 01:58 C-Reactive Protein 32.80 mg/dL (0.00-1.30) H 10/28/20 01:58 NT-Pro-B Natriuret Pep 1661 pg/mL (0-450) H 10/28/20 01:58 Total Protein 6.5 g/dL (6.3-8.2) 10/29/20 05:50 Albumin 3.0 g/dL (3.9-5) L 10/29/20 05:50 Albumin/Globulin Ratio 0.9 % 10/29/20 05:50 Procalcitonin 1.74 ng/mL (<0.15) 10/28/20 01:58 Coronavirus (PCR) Indeterminate (Negative) 10/28/20 Unknown Microbiology: Microbiology 10/28/20 01:58 Peripheral/Venous Blood Culture - Preliminary NO GROWTH AFTER 24 HOURS 10/28/20 01:51 Peripheral/Venous Blood Culture - Preliminary NO GROWTH AFTER 24 HOURS Nava/IV: Voiding Method Toilet Active Medications - Current Medications Current Medications: Generic Name Dose Route Start Last Admin Trade Name Freq PRN Reason Stop Dose Admin Acetaminophen 650 mg 10/28/20 03:35 10/29/20 10:19 Acetaminophen 325 Mg Tab PO 650 mg Q4H PRN Administration Pain MILD(1-3)/Fever >100.5/RIVERA Albuterol 2.5 mg 10/29/20 09:26 Albuterol 2.5 Mg/3 Ml Nebu IH Q4HRT PRN Shortness Of Breath Ascorbic Acid 1,000 mg 10/28/20 11:00 10/29/20 10:19 Ascorbic Acid 500 Mg Tab PO 1,000 mg BID TERI Administration Cholecalciferol 5,000 unit 10/28/20 11:00 10/29/20 10:18 Cholecalciferol (Vit D3) 5,000 Unit Tab PO 5,000 unit DAILY TERI Administration Dexamethasone 6 mg 10/28/20 10:00 10/29/20 10:19 Dexamethasone 4 Mg/Ml Vial IV 11/06/20 10:01 6 mg DAILY TERI Administration Furosemide 40 mg 10/28/20 11:00 10/29/20 10:19 Furosemide 40 Mg/4 Ml Inj IV 10/30/20 10:01 40 mg QDAY TERI Administration Guaifenesin 10 ml 10/29/20 10:26 Guaifenesin Dm 200/20 Mg Oral Liqd 10 Ml PO Q4H PRN Cough Heparin Sodium (Porcine) 5,000 unit 10/28/20 06:00 10/29/20 06:07 Heparin 5,000 Unit/1 Ml Vial SUB-Q 5,000 unit Q8HR TERI Administration Hydralazine HCl 10 mg 10/28/20 03:36 Hydralazine 20 Mg/1 Ml Inj IV Q6H PRN htn Hydrocodone Bit/Homatropine Methylb 10 ml 10/29/20 10:25 Hydrocodone/Homatropine 5-1.5mg /5 Ml Oral Liqd Unit Dose PO Q6H PRN Cough Ceftriaxone Sodium 2 gm in 100 mls @ 200 mls/hr 10/29/20 03:00 10/29/20 04:23 Rocephin/Ns 2 Gm/100 Ml IV 11/01/20 03:29 200 mls/hr Q24H TERI Administration Protocol Azithromycin 500 mg in 250 mls @ 250 mls/hr 10/29/20 04:00 10/29/20 04:24 Zithromax/Ns IV 11/01/20 04:59 250 mls/hr Q24H TERI Administration Protocol REMDESIVIR 100 mg/ Sodium 250 mls @ 500 mls/hr 10/29/20 21:00 Chloride IV 11/01/20 21:29 Q24HR@2100 TERI Ondansetron HCl 4 mg 10/28/20 03:35 Ondansetron 4 Mg/2 Ml Inj IV Q8H PRN Nausea And Vomiting Pantoprazole Sodium 40 mg 10/28/20 07:30 10/29/20 09:00 Pantoprazole 40 Mg Tab PO 40 mg QDAC TERI Administration Sodium Chloride 10 ml 10/28/20 10:00 10/29/20 10:19 Sodium Chloride 0.9% 10 Ml Flush Syringe IV 10 ml BID TERI Administration Sodium Chloride 10 ml 10/28/20 03:35 Sodium Chloride 0.9% 10 Ml Flush Syringe IV PRN PRN LINE FLUSH Sodium Chloride 50 ml 10/28/20 21:00 10/28/20 21:00 Sodium Chloride 0.9% 50 Ml Ivpb IV 11/01/20 21:01 50 ml Q24HR@2100 TERI Administration Zinc Sulfate 220 mg 10/28/20 11:00 10/29/20 10:19 Zinc Sulfate 220 Mg Cap PO 220 mg QDAY TERI Administration
--- NOTE | 2020-10-29 11:02 | Progress Note ---
Assessment and Plan Cultures: SARS CoV2 PCR: Indeterminate here, positive as outpatient A/P: 44-year-old male with: #Bilateral pneumonia: Secondary to COVID-19. #Acute hypoxic respiratory failure: On HFNC #Transaminitis: Secondary to COVID-19 Recs: -IV/PO Dexamethasone 6 mg daily x 10 days -Procalcitonin 1.74, continue empiric antibiotics -continue IV remdesivir, D2 of 5 -if hypoxia worsens requiring noninvasive ventilation and ICU transfer, patient may benefit from a dose of IV Tocilizumab -prophylactic anticoagulation based on d-dimer per hospital protocol -trend ferritin, LDH, d-dimer, CRP every 2-3 days for risk stratification and to assess disease progression Angel Hernandez MD, FACP [facility] ([facility] O: [phone] F: [phone] Subjective Date of service: 10/29/20 Interval history: No fever. Remains on HFNC. COVID-19 PCR came back as indeterminate. Objective - Exam Narrative Exam: Physical Exam (reviewed in chart to minimize risk of transmission) Constitutional: deferred Head, Ears, Nose: deferred Eyes: deferred Neck: deferred Oral: deferred Cardiovascular: deferred Respiratory: deferred GI: deferred Musculoskeletal: deferred Skin: deferred Hem/Lymphatic: deferred Psych: deferred Neurological: deferred - Constitutional Vitals: Vital Signs Temp Pulse Resp BP Pulse Ox 97.6 F 73 20 119/80 96 10/29/20 05:11 10/29/20 05:11 10/29/20 05:11 10/29/20 05:11 10/29/20 08:00 Temperature -Last 24 Hours Temperature 97.6 F Temperature 99.0 F Temperature 98.3 F - Labs CBC & Chem 7: 10/29/20 05:50 10/29/20 05:50 Labs: Abnormal lab results 10/28/20 10/29/20 10/29/20 Range/Units 13:48 05:50 05:50 MCHC 36 H (32-34) % Lymph % (Auto) 5.8 L (13.4-35.0) % Lymph # (Auto) 0.4 L (1.2-5.4) K/mm3 Seg Neutrophils % 87.8 H (40.0-70.0) % Sodium 134 L (137-145) mmol/L Chloride 96.2 L (98-107) mmol/L Creatinine 0.6 L 0.6 L (0.8-1.3) mg/dL Glucose 159 H 143 H (75-100) mg/dL AST 41 H 59 H (5-40) units/L ALT 59 H 71 H (7-56) units/L Alkaline Phosphatase 187 H 159 H (35-129) units/L Albumin 3.6 L 3.0 L (3.9-5) g/dL
--- NOTE | 2020-10-29 14:32 | Progress Note ---
Assessment and Plan 44-year-old gentleman with no significant past medical history was brought to the emergency room because of shortness of breath coughing and chest tightness . Patient was diagnosed with Covid around 7 to 8 days ago. He is brought to the hospital by emergency medical services with a complaint of chest tightness, cough, shortness of breath, malaise and fatigue. In the emergency room patient is found to have acute hypoxic respiratory failure and Covid pneumonia Patient alert, awake. Still complaining shortness of breath even with slight exertion. Still complaining some chest pain. Still has cough mostly non productive. Patient is on Vapotherm, FIO2 65% and O2 saturation running 92%. Increased FIO2 to 70%. Patient running Low grade temp. Has mild leukocytosis. Chest xray done 10/28/20 reported Diffuse pulmonary process, pulmonary edema is a concern. Pneumonia could have a similar appearance. Patient works in construction. Denies smoking, alcohol or drug abuse. and has five children. No known drug allergies. Patient is on Zithromax, Ceftriaxone, dexamethasone, S/C Heparin, Protonix and REMDESIVIR. 10/29/20 Patient alert, awake. Still on high flow O2. On vapotherm and FIO2 65%. O2 saturation 97%. Still complaining shortness of breath even with little exertion and cough and chest pain. Cough non productive. Chest pain is with cough. Patient afebrile. No leukocytosis. Blood pressure 128/92. - Patient Problems (1) Acute respiratory failure with hypoxia Current Visit: Yes Status: Acute Plan to address problem: Patient is on High flow O2, Vapotherm, FIO2 65%. Patient is on dexamethasone. S/C Heparin. Protonix. Recommend ABGs. (2) COVID-19 Current Visit: Yes Status: Acute Plan to address problem: Patient is on REMDESIVIR and dexamethasone. Management as per infectious disease specialists. (3) Pneumonia due to COVID-19 virus Current Visit: Yes Status: Acute Plan to address problem: Patient is on ceftriaxone and zithromax. Subjective Date of service: 10/29/20 Interval history: Patient alert, awake. Still on high flow O2. On vapotherm and FIO2 65%. O2 saturation 97%. Still complaining shortness of breath even with little exertion and cough and chest pain. Cough non productive. Chest pain is with cough. Patient afebrile. No leukocytosis. Blood pressure 128/92. Objective Vital Signs - 12hr 10/29/20 10/29/20 10/29/20 02:51 03:20 05:11 Temperature 97.6 F Pulse Rate 73 Respiratory 20 Rate Blood Pressure 119/80 O2 Sat by Pulse 94 94 94 Oximetry 10/29/20 08:00 Temperature Pulse Rate Respiratory Rate Blood Pressure O2 Sat by Pulse 96 Oximetry Constitutional: alert, appears uncomfortable, other (Shortness of breath even with slight exertion.) Eyes: non-icteric ENT: oropharynx moist Neck: supple Effort: mildly labored Ascultation: Bilateral: rhonchi Cardiovascular: regular rate and rhythm Gastrointestinal: normoactive bowel sounds, soft, non-tender Integumentary: normal Extremities: no cyanosis, no edema Neurologic: normal mental status, non-focal exam, pupils equal and round, CN II- XII normal Psychiatric: mood appropriate CBC and BMP: 10/29/20 05:50 10/30/20 05:46 ABG, PT/INR, D-dimer: PT/INR, D-dimer PT 13.2 Sec. (12.2-14.9) 10/28/20 01:58 INR 1.01 (0.87-1.13) 10/28/20 01:58 D-Dimer 227.37 ng/mlDDU (0-234) 10/28/20 01:58 Abnormal lab findings: Abnormal Labs 10/28/20 10/28/20 10/28/20 01:58 01:58 01:58 Hgb 15.4 H MCH 33 H MCHC 36 H Lymph % (Auto) Lymph # (Auto) Seg Neutrophils % Seg Neuts % (Manual) 97.0 H Lymphocytes % (Manual) 1.0 L Seg Neutrophils # Man 10.7 H Lymphocytes # (Manual) 0.1 L Sodium 135 L Chloride 96.1 L BUN 8 L Creatinine 0.6 L Glucose 130 H Ferritin AST 45 H ALT 69 H Alkaline Phosphatase 189 H Lactate Dehydrogenase 339 H C-Reactive Protein 32.80 H NT-Pro-B Natriuret Pep Albumin 3.6 L 10/28/20 10/28/20 10/28/20 01:58 01:58 13:48 Hgb MCH MCHC Lymph % (Auto) Lymph # (Auto) Seg Neutrophils % Seg Neuts % (Manual) Lymphocytes % (Manual) Seg Neutrophils # Man Lymphocytes # (Manual) Sodium 134 L Chloride 96.2 L BUN Creatinine 0.6 L Glucose 159 H Ferritin 1631.0 H AST 41 H ALT 59 H Alkaline Phosphatase 187 H Lactate Dehydrogenase C-Reactive Protein NT-Pro-B Natriuret Pep 1661 H Albumin 3.6 L 10/29/20 10/29/20 10/29/20 05:50 05:50 05:50 Hgb MCH MCHC 36 H Lymph % (Auto) 5.8 L Lymph # (Auto) 0.4 L Seg Neutrophils % 87.8 H Seg Neuts % (Manual) Lymphocytes % (Manual) Seg Neutrophils # Man Lymphocytes # (Manual) Sodium Chloride BUN Creatinine 0.6 L Glucose 143 H Ferritin AST 59 H ALT 71 H Alkaline Phosphatase 159 H Lactate Dehydrogenase C-Reactive Protein 19.90 H NT-Pro-B Natriuret Pep Albumin 3.0 L
[2020-10-29] MEDS: HYDROcodone/HOMATROPINE 5-1.5MG /5 ML ORAL LIQD UNIT DOSE PO PRN ×2 (16:42→21:44)
[2020-10-29] MEDS: REMDESIVIR 100 MG in SODIUM CHLORIDE 0.9% 250ML 250 ML IV SCH (21:44)
[2020-10-29] MEDS: SODIUM CHLORIDE 0.9% 50 ML IVPB IV SCH (21:45)
[2020-10-30] MEDS: cefTRIAXone/NS 2 GM/100 ML 2 GM/100 ML BAG IV SCH (03:09)
[2020-10-30] MEDS: AZITHROMYCIN/NS 500 MG/250 ML 500 MG/250 ML BAG IV SCH (03:53)
[2020-10-30] MEDS: HEPARIN 5,000 UNIT/1 ML VIAL SUB-Q SCH ×3 (05:53→22:25)
[2020-10-30 07:08] LABS: Alanine Aminotransferase 82 units/L (7-56); Albumin 3.1 g/dL (3.9-5); Blood Urea Nitrogen 19 mg/dL (9-20); Calcium 8.3 mg/dL (8.4-10.2); Hemolysis Index 4
[2020-10-30 07:35] LABS: BUN/Creatinine Ratio 32
[2020-10-30] MEDS: PANTOPRAZOLE 40 MG TAB PO SCH (10:14)
[2020-10-30] MEDS: DEXAMETHASONE 2 MG TAB PO SCH (10:14)
[2020-10-30] MEDS: ASCORBIC ACID 500 MG TAB PO SCH ×2 (10:15→22:25)
[2020-10-30] MEDS: ZINC SULFATE 220 MG CAP PO SCH (10:15)
[2020-10-30] MEDS: FUROSEMIDE 40 MG/4 ML INJ IV SCH (10:15)
[2020-10-30] MEDS: CHOLECALCIFEROL (VIT D3) 5,000 UNIT TAB PO SCH (10:16)
--- NOTE | 2020-10-30 11:59 | Progress Note ---
Assessment and Plan Cultures: SARS CoV2 PCR: Indeterminate here, positive as outpatient A/P: 44-year-old male with: #Bilateral pneumonia: Secondary to COVID-19. #Acute hypoxic respiratory failure: On HFNC #Transaminitis: Secondary to COVID-19. Stable. Recs: -IV/PO Dexamethasone 6 mg daily x 10 days -Procalcitonin 1.74, continue empiric antibiotics x total 5 days -continue IV remdesivir, D3 of 5 -prophylactic anticoagulation based on d-dimer per hospital protocol -trend ferritin, LDH, d-dimer, CRP every 2-3 days for risk stratification and to assess disease progression Angel Hernandez MD, FACP [facility] ([facility] O: [phone] F: [phone] Subjective Date of service: 10/30/20 Interval history: No fever. Remains on HFNC. Objective - Exam Narrative Exam: Physical Exam (reviewed in chart to minimize risk of transmission) Constitutional: deferred Head, Ears, Nose: deferred Eyes: deferred Neck: deferred Oral: deferred Cardiovascular: deferred Respiratory: deferred GI: deferred Musculoskeletal: deferred Skin: deferred Hem/Lymphatic: deferred Psych: deferred Neurological: deferred - Constitutional Vitals: Vital Signs Temp Pulse Resp BP Pulse Ox 98.5 F 82 18 106/77 93 10/30/20 04:31 10/30/20 04:31 10/30/20 04:31 10/30/20 04:31 10/30/20 08:15 Temperature -Last 24 Hours Temperature 98.5 F Temperature 97.9 F Temperature 98.2 F Temperature 97.9 F - Labs CBC & Chem 7: 10/29/20 05:50 10/30/20 05:46 Labs: Abnormal lab results 10/29/20 10/29/20 10/30/20 Range/Units 05:50 Unknown 05:46 D-Dimer (0-234) ng/mlDDU Creatinine 0.6 L (0.8-1.3) mg/dL Glucose 133 H (75-100) mg/dL Calcium 8.3 L (8.4-10.2) mg/dL Ferritin (30.0-300.0) ng/mL AST 52 H (5-40) units/L ALT 82 H (7-56) units/L Alkaline Phosphatase 144 H (35-129) units/L Lactate Dehydrogenase (91-180) units/L C-Reactive Protein 19.90 H (0.00-1.30) mg/dL Albumin 3.1 L (3.9-5) g/dL Coronavirus (PCR) Positive A (Negative) 10/30/20 10/30/20 10/30/20 Range/Units 05:46 05:46 05:46 D-Dimer 347.85 H (0-234) ng/mlDDU Creatinine (0.8-1.3) mg/dL Glucose 133 H (75-100) mg/dL Calcium (8.4-10.2) mg/dL Ferritin 1775.0 H (30.0-300.0) ng/mL AST (5-40) units/L ALT (7-56) units/L Alkaline Phosphatase (35-129) units/L Lactate Dehydrogenase 302 H (91-180) units/L C-Reactive Protein (0.00-1.30) mg/dL Albumin (3.9-5) g/dL Coronavirus (PCR) (Negative)
--- NOTE | 2020-10-30 13:03 | Progress Note ---
Assessment and Plan Assessment and plan: 44-year-old gentleman with no significant past medical history was brought to the emergency room because of shortness of breath coughing and chest tightness . Patient was diagnosed with Covid around 7 to 8 days ago. He is brought to the hospital by emergency medical services with a complaint of chest tightness, cough, shortness of breath, malaise and fatigue. In the emergency room patient is found to have acute hypoxic respiratory failure and Covid pneumonia On discussion patient spouse also was diagnosed with COVID-19 but with a more mild disease. There were plan to get the vaccine but got diagnosed with the disease prior. Sepsis secondary to COVID19 Bilateral Pneumonia COVID19 Transaminitis Persistent Cough Anxiety Plan Continue supportive care, patient continues on high flow Oxygen now at 35 l/min. He still has shortness of breath Continue dexamethasone 6 mg to complete 10 days. Remdesivir discontinued due to transaminitis being elevated Pulmonary consulted and input noted. ID input is appreciated. D-dimer 347.85 Blood cultures done 10/28/20, pending Started antitussives medication for cough Encourage prone positioning as tolerated Continue to monitor inflammatory markers DVT and GI prophylaxis Plan of care discussed with the patient and spouse in detail. The high probability of a clinically significant, sudden or life threatening deterioration of the [pulmonary] system(s) required my full and direct attention, intervention and personal management. The aggregate critical care time was [33] minutes. This time is in addition to time spent performing reported procedures but includes the following: [x] Data Review and interpretation [x] Patient assessment and monitoring of vital signs [x] Documentation [x] Medication orders and management History Interval history: Patient still has shortness of breath Still coughing Fever of 100.1 on 10/28 Hospitalist Physical - Physical exam Narrative exam: Gen: Not in acute distress, sitting up in bed, On Oxygen by HFNC at 35 l/min Neck:supple, no JVD Lungs: bilateral crackles, no wheeze heart:S1 and S2 reg, no murmurs, rubs or gallop Abdomen:soft, NT, non distended, normal bowel sounds Ext:No edema, no clubbing, no cyanosis Neuro:Awake,alert, oriented X 3. No focal signs Pasych:calm. co-operative - Constitutional Vitals: Temp Pulse Resp BP Pulse Ox 98.5 F 82 20 106/77 97 10/30/20 04:31 10/30/20 04:31 10/30/20 12:08 10/30/20 04:31 10/30/20 12:08 HEART Score - HEART Score Troponin: Troponin T 0.022 ng/mL (0.00-0.029) 10/28/20 01:58 Results - Labs CBC & Chem 7: 10/29/20 05:50 10/30/20 05:46 Labs: Laboratory Last Values WBC 7.2 K/mm3 (4.5-11.0) 10/29/20 05:50 RBC 4.51 M/mm3 (3.65-5.03) 10/29/20 05:50 Hgb 14.5 gm/dl (11.8-15.2) 10/29/20 05:50 Hct 40.8 % (35.5-45.6) 10/29/20 05:50 MCV 91 fl (84-94) 10/29/20 05:50 MCH 32 pg (28-32) 10/29/20 05:50 MCHC 36 % (32-34) H 10/29/20 05:50 RDW 13.6 % (13.2-15.2) 10/29/20 05:50 Plt Count 330 K/mm3 (140-440) 10/29/20 05:50 Lymph % (Auto) 5.8 % (13.4-35.0) L 10/29/20 05:50 [place] % (Auto) 6.3 % (0.0-7.3) 10/29/20 05:50 Eos % (Auto) 0.0 % (0.0-4.3) 10/29/20 05:50 Baso % (Auto) 0.1 % (0.0-1.8) 10/29/20 05:50 Lymph # (Auto) 0.4 K/mm3 (1.2-5.4) L 10/29/20 05:50 [place] # (Auto) 0.5 K/mm3 (0.0-0.8) 10/29/20 05:50 Eos # (Auto) 0.0 K/mm3 (0.0-0.4) 10/29/20 05:50 Baso # (Auto) 0.0 K/mm3 (0.0-0.1) 10/29/20 05:50 Add Manual Diff Complete 10/28/20 01:58 Total Counted 100 10/28/20 01:58 Seg Neutrophils % 87.8 % (40.0-70.0) H 10/29/20 05:50 Seg Neuts % (Manual) 97.0 % (40.0-70.0) H 10/28/20 01:58 Lymphocytes % (Manual) 1.0 % (13.4-35.0) L 10/28/20 01:58 Monocytes % (Manual) 2.0 % (0.0-7.3) 10/28/20 01:58 Nucleated RBC % Not Reportable 10/28/20 01:58 Seg Neutrophils # 6.4 K/mm3 (1.8-7.7) 10/29/20 05:50 Seg Neutrophils # Man 10.7 K/mm3 (1.8-7.7) H 10/28/20 01:58 Band Neutrophils # 0.0 K/mm3 10/28/20 01:58 Lymphocytes # (Manual) 0.1 K/mm3 (1.2-5.4) L 10/28/20 01:58 Abs React Lymphs (Man) 0.0 K/mm3 10/28/20 01:58 Monocytes # (Manual) 0.2 K/mm3 (0.0-0.8) 10/28/20 01:58 Eosinophils # (Manual) 0.0 K/mm3 (0.0-0.4) 10/28/20 01:58 Basophils # (Manual) 0.0 K/mm3 (0.0-0.1) 10/28/20 01:58 Metamyelocytes # 0.0 K/mm3 10/28/20 01:58 Myelocytes # 0.0 K/mm3 10/28/20 01:58 Promyelocytes # 0.0 K/mm3 10/28/20 01:58 Blast Cells # 0.0 K/mm3 10/28/20 01:58 WBC Morphology Not Reportable 10/28/20 01:58 Hypersegmented Neuts Not Reportable 10/28/20 01:58 Hyposegmented Neuts Not Reportable 10/28/20 01:58 Hypogranular Neuts Not Reportable 10/28/20 01:58 Smudge Cells Not Reportable 10/28/20 01:58 Toxic Granulation Not Reportable 10/28/20 01:58 Toxic Vacuolation Not Reportable 10/28/20 01:58 Dohle Bodies Not Reportable 10/28/20 01:58 Pelger-Huet Anomaly Not Reportable 10/28/20 01:58 Trey Rods Not Reportable 10/28/20 01:58 Platelet Estimate Consistent w auto 10/28/20 01:58 Clumped Platelets Not Reportable 10/28/20 01:58 Plt Clumps, EDTA Not Reportable 10/28/20 01:58 Large Platelets Not Reportable 10/28/20 01:58 Giant Platelets Not Reportable 10/28/20 01:58 Platelet Satelliting Not Reportable 10/28/20 01:58 Plt Morphology Comment Not Reportable 10/28/20 01:58 RBC Morphology Normal 10/28/20 01:58 Dimorphic RBCs Not Reportable 10/28/20 01:58 Polychromasia Not Reportable 10/28/20 01:58 Hypochromasia Not Reportable 10/28/20 01:58 Poikilocytosis Not Reportable 10/28/20 01:58 Anisocytosis Not Reportable 10/28/20 01:58 Microcytosis Not Reportable 10/28/20 01:58 Macrocytosis Not Reportable 10/28/20 01:58 Spherocytes Not Reportable 10/28/20 01:58 Pappenheimer Bodies Not Reportable 10/28/20 01:58 Sickle Cells Not Reportable 10/28/20 01:58 Target Cells Not Reportable 10/28/20 01:58 Tear Drop Cells Not Reportable 10/28/20 01:58 Ovalocytes Not Reportable 10/28/20 01:58 Helmet Cells Not Reportable 10/28/20 01:58 [place] Bodies Not Reportable 10/28/20 01:58 [place] Rings Not Reportable 10/28/20 01:58 [place] Cells Not Reportable 10/28/20 01:58 Bite Cells Not Reportable 10/28/20 01:58 Crenated Cell Not Reportable 10/28/20 01:58 Elliptocytes Not Reportable 10/28/20 01:58 Acanthocytes (Spur) Not Reportable 10/28/20 01:58 Rouleaux Not Reportable 10/28/20 01:58 Hemoglobin C Crystals Not Reportable 10/28/20 01:58 Schistocytes Not Reportable 10/28/20 01:58 Malaria parasites Not Reportable 10/28/20 01:58 Froylan Bodies Not Reportable 10/28/20 01:58 Hem Pathologist Commnt No 10/28/20 01:58 PT 13.2 Sec. (12.2-14.9) 10/28/20 01:58 INR 1.01 (0.87-1.13) 10/28/20 01:58 D-Dimer 347.85 ng/mlDDU (0-234) H 10/30/20 05:46 Sodium 138 mmol/L (137-145) 10/30/20 05:46 Potassium 3.8 mmol/L (3.6-5.0) 10/30/20 05:46 Chloride 99.5 mmol/L (98-107) 10/30/20 05:46 Carbon Dioxide 26 mmol/L (22-30) 10/30/20 05:46 Anion Gap 16 mmol/L 10/30/20 05:46 BUN 19 mg/dL (9-20) 10/30/20 05:46 Creatinine 0.6 mg/dL (0.8-1.3) L 10/30/20 05:46 Estimated GFR > 60 ml/min 10/30/20 05:46 BUN/Creatinine Ratio 32 % 10/30/20 05:46 Glucose 133 mg/dL (75-100) H 10/30/20 05:46 Glucose 133 mg/dL (75-100) H 10/30/20 05:46 Lactic Acid 1.40 mmol/L (0.7-2.0) 10/28/20 01:58 Calcium 8.3 mg/dL (8.4-10.2) L 10/30/20 05:46 Magnesium 2.20 mg/dL (1.7-2.3) 10/28/20 01:58 Ferritin 1775.0 ng/mL (30.0-300.0) H 10/30/20 05:46 Total Bilirubin 0.30 mg/dL (0.1-1.2) 10/30/20 05:46 AST 52 units/L (5-40) H 10/30/20 05:46 ALT 82 units/L (7-56) H 10/30/20 05:46 Alkaline Phosphatase 144 units/L (35-129) H 10/30/20 05:46 Lactate Dehydrogenase 302 units/L (91-180) H 10/30/20 05:46 Troponin T 0.022 ng/mL (0.00-0.029) 10/28/20 01:58 C-Reactive Protein 19.90 mg/dL (0.00-1.30) H 10/29/20 05:50 NT-Pro-B Natriuret Pep 1661 pg/mL (0-450) H 10/28/20 01:58 Total Protein 6.6 g/dL (6.3-8.2) 10/30/20 05:46 Albumin 3.1 g/dL (3.9-5) L 10/30/20 05:46 Albumin/Globulin Ratio 0.9 % 10/30/20 05:46 Procalcitonin 1.74 ng/mL (<0.15) 10/28/20 01:58 Coronavirus (PCR) Positive (Negative) A 10/29/20 Unknown Microbiology: Microbiology 10/28/20 01:58 Peripheral/Venous Blood Culture - Preliminary NO GROWTH AFTER 48 HOURS 10/28/20 01:51 Peripheral/Venous Blood Culture - Preliminary NO GROWTH AFTER 48 HOURS Nava/IV: Voiding Method Toilet Active Medications - Current Medications Current Medications: Generic Name Dose Route Start Last Admin Trade Name Freq PRN Reason Stop Dose Admin Acetaminophen 650 mg 10/28/20 03:35 10/29/20 10:19 Acetaminophen 325 Mg Tab PO 650 mg Q4H PRN Administration Pain MILD(1-3)/Fever >100.5/RIVERA Albuterol 2.5 mg 10/29/20 09:26 Albuterol 2.5 Mg/3 Ml Nebu IH Q4HRT PRN Shortness Of Breath Ascorbic Acid 1,000 mg 10/28/20 11:00 10/30/20 10:15 Ascorbic Acid 500 Mg Tab PO 1,000 mg BID TERI Administration Cholecalciferol 5,000 unit 10/28/20 11:00 10/30/20 10:16 Cholecalciferol (Vit D3) 5,000 Unit Tab PO 5,000 unit DAILY TERI Administration Dexamethasone 6 mg 10/30/20 10:00 10/30/20 10:14 Dexamethasone 2 Mg Tab PO 11/06/20 10:01 6 mg DAILY TERI Administration Guaifenesin 10 ml 10/29/20 10:26 Guaifenesin Dm 200/20 Mg Oral Liqd 10 Ml PO Q4H PRN Cough Heparin Sodium (Porcine) 5,000 unit 10/28/20 06:00 10/30/20 05:53 Heparin 5,000 Unit/1 Ml Vial SUB-Q 5,000 unit Q8HR TERI Administration Hydralazine HCl 10 mg 10/28/20 03:36 Hydralazine 20 Mg/1 Ml Inj IV Q6H PRN htn Hydrocodone Bit/Homatropine Methylb 10 ml 10/29/20 10:25 10/29/20 21:44 Hydrocodone/Homatropine 5-1.5mg /5 Ml Oral Liqd Unit Dose PO 10 ml Q6H PRN Administration Cough Ceftriaxone Sodium 2 gm in 100 mls @ 200 mls/hr 10/29/20 03:00 10/30/20 05:49 Rocephin/Ns 2 Gm/100 Ml IV 11/01/20 03:29 Infused Q24H TERI Infusion Protocol Azithromycin 500 mg in 250 mls @ 250 mls/hr 10/29/20 04:00 10/30/20 05:49 Zithromax/Ns IV 11/01/20 04:59 Infused Q24H TERI Infusion Protocol REMDESIVIR 100 mg/ Sodium 250 mls @ 500 mls/hr 10/29/20 21:00 10/30/20 05:49 Chloride IV 11/01/20 21:29 Infused Q24HR@2100 TERI Infusion Ondansetron HCl 4 mg 10/28/20 03:35 Ondansetron 4 Mg/2 Ml Inj IV Q8H PRN Nausea And Vomiting Pantoprazole Sodium 40 mg 10/28/20 07:30 10/30/20 10:14 Pantoprazole 40 Mg Tab PO 40 mg QDAC TERI Administration Sodium Chloride 10 ml 10/28/20 10:00 10/30/20 10:16 Sodium Chloride 0.9% 10 Ml Flush Syringe IV 10 ml BID TERI Administration Sodium Chloride 10 ml 10/28/20 03:35 Sodium Chloride 0.9% 10 Ml Flush Syringe IV PRN PRN LINE FLUSH Sodium Chloride 50 ml 10/28/20 21:00 10/29/20 21:45 Sodium Chloride 0.9% 50 Ml Ivpb IV 11/01/20 21:01 50 ml Q24HR@2100 TERI Administration Zinc Sulfate 220 mg 10/28/20 11:00 10/30/20 10:15 Zinc Sulfate 220 Mg Cap PO 220 mg QDAY TERI Administration
[2020-10-30] MEDS: HYDROcodone/HOMATROPINE 5-1.5MG /5 ML ORAL LIQD UNIT DOSE PO PRN (13:57)
--- NOTE | 2020-10-30 14:22 | Progress Note ---
Assessment and Plan Acute respiratory failure with hypoxia COVID-19 Pneumonia due to COVID-19 virus Transaminitis Anxiety - repeat CXR in am - prn NIV for increased work of breathing - continue Remdesivir as per ID/Pulmonary developed protocols - continue systemic steroids for severe COVID-19 infection - follow repeat COVID tests results - zinc and vitamin C supplementation - Monitor inflammatory markers per facility protocol - ferritin, Ddimer, CRP - therapeutic anticoagulation per system Protocol based on d-dimer and clinical considerations (VTE prophylaxis now) - Continue contact and airborne isolation - continue to wean supplemental oxygen to keep O2 sats > 92% - continue Bronchodilators (ETELVINA) with pulm hygiene per RT - continue to avoid nephrotoxins, renally dose all medications - continue mobility protocols to prevent pressure ulcers - PT/OT as tolerated - Wound care per RN/WCT - continue accuchecks with glycemic control per SSI for target blood glucose < 180 mg/dL - tobacco abstinence strongly counseled at the bedside - home oxygen evaluation at discharge - GI & VTE prophylaxis - Flu & pneumovax per protocol - Pulmonary out patient follow up for PFTs and optimization of respiratory sta tus - aspiration precautions - complete empiric AB's per ID rec's - prn analgesia per pain score - Maintenance of sleep-wake cycle, avoid delirium - Monitor hemodynamics closely - continue other care per attending / other consultants - discharge planning ongoing concurrently .... Re-evaluate in am & prn CONDITION: CRITICAL PROGNOSIS: GUARDED CODE STATUS: FULL CODE The high probability of a clinically significant, sudden or life-threatening deterioration of the [respiratory, cardiovascular, hematologic & neurologic] system(s) required my full and direct attention, intervention and personal management. The aggregate critical care time was [32] minutes without overlap. Time includes spent on; [x] Data Review and interpretation [x] Patient assessment and monitoring of vital signs [x] Documentation [x] Medication orders and management Subjective Date of service: 10/30/20 Principal diagnosis: Acute hypoxemic resp failure; COVID-19; Pneumonia; Transaminitis; Anxiety Interval history: Patient is seen today for: Acute hypoxemic respiratory failure; COVID-19; Pneumo maynor; Transaminitis; Anxiety Seen and examined at bedside; 24hour events reviewed; nursing and respiratory care staff consulted; no adverse overnight events reported to me; resting in bed; remains on HFNC @ 65% FiO2; complains of mild chest pain; denies hemoptysis; no N/V/F/C; weak Objective Vital Signs - 12hr 10/30/20 10/30/20 10/30/20 04:31 08:15 12:08 Temperature 98.5 F Pulse Rate 82 Respiratory 18 20 Rate Blood Pressure 106/77 O2 Sat by Pulse 91 93 97 Oximetry Constitutional: alert, appears uncomfortable, other (middle aged male with mildfly increase respiratory effort at rest) Eyes: non-icteric ENT: oropharynx moist Neck: supple, no lymphadenopathy, no JVD Effort: mildly labored Ascultation: Bilateral: rales (bases; inspiratory) Percussion: Bilateral: not dull Cardiovascular: regular rate and rhythm Gastrointestinal: normoactive bowel sounds, soft, non-tender, non-distended Integumentary: normal Extremities: no cyanosis, no edema, pulses normal, no ischemia or petechiae Neurologic: normal mental status, non-focal exam, pupils equal and round, CN II- XII normal Psychiatric: mood appropriate, anxious CBC and BMP: 10/29/20 05:50 10/31/20 05:15 ABG, PT/INR, D-dimer: PT/INR, D-dimer PT 13.2 Sec. (12.2-14.9) 10/28/20 01:58 INR 1.01 (0.87-1.13) 10/28/20 01:58 D-Dimer 347.85 ng/mlDDU (0-234) H 10/30/20 05:46 Abnormal lab findings: Abnormal Labs 10/28/20 10/28/20 10/28/20 01:58 01:58 01:58 Hgb 15.4 H MCH 33 H MCHC 36 H Lymph % (Auto) Lymph # (Auto) Seg Neutrophils % Seg Neuts % (Manual) 97.0 H Lymphocytes % (Manual) 1.0 L Seg Neutrophils # Man 10.7 H Lymphocytes # (Manual) 0.1 L D-Dimer Sodium 135 L Chloride 96.1 L BUN 8 L Creatinine 0.6 L Glucose 130 H Calcium Ferritin AST 45 H ALT 69 H Alkaline Phosphatase 189 H Lactate Dehydrogenase 339 H C-Reactive Protein 32.80 H NT-Pro-B Natriuret Pep Albumin 3.6 L Coronavirus (PCR) 10/28/20 10/28/20 10/28/20 01:58 01:58 13:48 Hgb MCH MCHC Lymph % (Auto) Lymph # (Auto) Seg Neutrophils % Seg Neuts % (Manual) Lymphocytes % (Manual) Seg Neutrophils # Man Lymphocytes # (Manual) D-Dimer Sodium 134 L Chloride 96.2 L BUN Creatinine 0.6 L Glucose 159 H Calcium Ferritin 1631.0 H AST 41 H ALT 59 H Alkaline Phosphatase 187 H Lactate Dehydrogenase C-Reactive Protein NT-Pro-B Natriuret Pep 1661 H Albumin 3.6 L Coronavirus (PCR) 10/29/20 10/29/20 10/29/20 05:50 05:50 05:50 Hgb MCH MCHC 36 H Lymph % (Auto) 5.8 L Lymph # (Auto) 0.4 L Seg Neutrophils % 87.8 H Seg Neuts % (Manual) Lymphocytes % (Manual) Seg Neutrophils # Man Lymphocytes # (Manual) D-Dimer Sodium Chloride BUN Creatinine 0.6 L Glucose 143 H Calcium Ferritin AST 59 H ALT 71 H Alkaline Phosphatase 159 H Lactate Dehydrogenase C-Reactive Protein 19.90 H NT-Pro-B Natriuret Pep Albumin 3.0 L Coronavirus (PCR) 10/29/20 10/30/20 10/30/20 Unknown 05:46 05:46 Hgb MCH MCHC Lymph % (Auto) Lymph # (Auto) Seg Neutrophils % Seg Neuts % (Manual) Lymphocytes % (Manual) Seg Neutrophils # Man Lymphocytes # (Manual) D-Dimer 347.85 H Sodium Chloride BUN Creatinine 0.6 L Glucose 133 H Calcium 8.3 L Ferritin AST 52 H ALT 82 H Alkaline Phosphatase 144 H Lactate Dehydrogenase C-Reactive Protein NT-Pro-B Natriuret Pep Albumin 3.1 L Coronavirus (PCR) Positive A 10/30/20 10/30/20 05:46 05:46 Hgb MCH MCHC Lymph % (Auto) Lymph # (Auto) Seg Neutrophils % Seg Neuts % (Manual) Lymphocytes % (Manual) Seg Neutrophils # Man Lymphocytes # (Manual) D-Dimer Sodium Chloride BUN Creatinine Glucose 133 H Calcium Ferritin 1775.0 H AST ALT Alkaline Phosphatase Lactate Dehydrogenase 302 H C-Reactive Protein NT-Pro-B Natriuret Pep Albumin Coronavirus (PCR) Chest x-ray: other (none today) Allied health notes reviewed: nursing
[2020-10-30] MEDS: REMDESIVIR 100 MG in SODIUM CHLORIDE 0.9% 250ML 250 ML IV SCH (22:24)
[2020-10-30] MEDS: SODIUM CHLORIDE 0.9% 50 ML IVPB IV SCH (23:00)
[2020-10-31] MEDS ORDERED: MORPHINE 2 MG/1 ML INJ IV ONE (02:05)
[2020-10-31] MEDS ORDERED: MORPHINE 2 MG/1 ML INJ ONE (02:18)
[2020-10-31] MEDS: cefTRIAXone/NS 2 GM/100 ML 2 GM/100 ML BAG IV SCH (03:56)
[2020-10-31] MEDS: HEPARIN 5,000 UNIT/1 ML VIAL SUB-Q SCH ×3 (06:21→21:23)
[2020-10-31] MEDS: AZITHROMYCIN/NS 500 MG/250 ML 500 MG/250 ML BAG IV SCH (06:21)
[2020-10-31 06:37] LABS: Alanine Aminotransferase 147 units/L (7-56); Albumin 3.2 g/dL (3.9-5); Blood Urea Nitrogen 21 mg/dL (9-20); Hemolysis Index 3
[2020-10-31 06:49] LABS: BUN/Creatinine Ratio 35
[2020-10-31] MEDS: ZINC SULFATE 220 MG CAP PO SCH (10:51)
[2020-10-31] MEDS: PANTOPRAZOLE 40 MG TAB PO SCH (10:51)
[2020-10-31] MEDS: CHOLECALCIFEROL (VIT D3) 5,000 UNIT TAB PO SCH (10:51)
[2020-10-31] MEDS: ASCORBIC ACID 500 MG TAB PO SCH ×2 (10:51→21:23)
[2020-10-31] MEDS: DEXAMETHASONE 2 MG TAB PO SCH (10:51)
--- NOTE | 2020-10-31 11:19 | Progress Note ---
Assessment and Plan Assessment and plan: 44-year-old gentleman with no significant past medical history was brought to the emergency room because of shortness of breath coughing and chest tightness . Patient was diagnosed with Covid around 7 to 8 days ago. He is brought to the hospital by emergency medical services with a complaint of chest tightness, cough, shortness of breath, malaise and fatigue. In the emergency room patient is found to have acute hypoxic respiratory failure and Covid pneumonia On discussion patient spouse also was diagnosed with COVID-19 but with a more mild disease. There were plan to get the vaccine but got diagnosed with the disease prior. Sepsis secondary to COVID19 Bilateral Pneumonia COVID19 Transaminitis Persistent Cough Anxiety Plan Continue supportive care, patient continues on high flow Oxygen now at 35 l/min. He still has shortness of breath Continue dexamethasone 6 mg to complete 10 days. Remdesivir discontinued due to transaminitis being elevated Pulmonary consulted and input noted. ID input is appreciated. D-dimer 347.85 Blood cultures done 10/28/20, pending Started antitussives medication for cough Encourage prone positioning as tolerated Continue to monitor inflammatory markers DVT and GI prophylaxis Plan of care discussed with the patient and spouse in detail. 10/31/20 patient had chest pain last night, now resolved. Still complain of shortness of breath. No more fever. He also complain of insomnia and requesting sleep aid. he is still on HFNC at 35 l/min. Will repeat CXR today to re-evaluate Covid-19 pneumonia. Give Ambien. I discussed plan with patient and on phone. The high probability of a clinically significant, sudden or life threatening deterioration of the [pulmonary] system(s) required my full and direct attention, intervention and personal management. The aggregate critical care time was [33] minutes. This time is in addition to time spent performing r eported procedures but includes the following: [x] Data Review and interpretation [x] Patient assessment and monitoring of vital signs [x] Documentation [x] Medication orders and management History Interval history: Patient had chest pain last night, resolved still has shortness of breath Still coughing Fever of 100.1 on 10/28 No more fever sleeplessness Hospitalist Physical - Physical exam Narrative exam: Gen: Not in acute distress, sitting up in bed, On Oxygen by HFNC at 35 l/min Neck:supple, no JVD Lungs: bilateral crackles, no wheeze heart:S1 and S2 reg, no murmurs, rubs or gallop Abdomen:soft, NT, non distended, normal bowel sounds Ext:No edema, no clubbing, no cyanosis Neuro:Awake,alert, oriented X 3. No focal signs Pasych:calm. co-operative - Constitutional Vitals: Temp Pulse Resp BP Pulse Ox 98.3 F 72 22 116/79 94 10/31/20 04:27 10/31/20 04:27 10/31/20 04:27 10/31/20 04:27 10/31/20 08:00 HEART Score - HEART Score Troponin: Troponin T < 0.010 ng/mL (0.00-0.029) 10/31/20 05:15 Results - Labs CBC & Chem 7: 10/29/20 05:50 10/31/20 05:15 Labs: Laboratory Last Values WBC 7.2 K/mm3 (4.5-11.0) 10/29/20 05:50 RBC 4.51 M/mm3 (3.65-5.03) 10/29/20 05:50 Hgb 14.5 gm/dl (11.8-15.2) 10/29/20 05:50 Hct 40.8 % (35.5-45.6) 10/29/20 05:50 MCV 91 fl (84-94) 10/29/20 05:50 MCH 32 pg (28-32) 10/29/20 05:50 MCHC 36 % (32-34) H 10/29/20 05:50 RDW 13.6 % (13.2-15.2) 10/29/20 05:50 Plt Count 330 K/mm3 (140-440) 10/29/20 05:50 Lymph % (Auto) 5.8 % (13.4-35.0) L 10/29/20 05:50 Pratt % (Auto) 6.3 % (0.0-7.3) 10/29/20 05:50 Eos % (Auto) 0.0 % (0.0-4.3) 10/29/20 05:50 Baso % (Auto) 0.1 % (0.0-1.8) 10/29/20 05:50 Lymph # (Auto) 0.4 K/mm3 (1.2-5.4) L 10/29/20 05:50 Pratt # (Auto) 0.5 K/mm3 (0.0-0.8) 10/29/20 05:50 Eos # (Auto) 0.0 K/mm3 (0.0-0.4) 10/29/20 05:50 Baso # (Auto) 0.0 K/mm3 (0.0-0.1) 10/29/20 05:50 Add Manual Diff Complete 10/28/20 01:58 Total Counted 100 10/28/20 01:58 Seg Neutrophils % 87.8 % (40.0-70.0) H 10/29/20 05:50 Seg Neuts % (Manual) 97.0 % (40.0-70.0) H 10/28/20 01:58 Lymphocytes % (Manual) 1.0 % (13.4-35.0) L 10/28/20 01:58 Monocytes % (Manual) 2.0 % (0.0-7.3) 10/28/20 01:58 Nucleated RBC % Not Reportable 10/28/20 01:58 Seg Neutrophils # 6.4 K/mm3 (1.8-7.7) 10/29/20 05:50 Seg Neutrophils # Man 10.7 K/mm3 (1.8-7.7) H 10/28/20 01:58 Band Neutrophils # 0.0 K/mm3 10/28/20 01:58 Lymphocytes # (Manual) 0.1 K/mm3 (1.2-5.4) L 10/28/20 01:58 Abs React Lymphs (Man) 0.0 K/mm3 10/28/20 01:58 Monocytes # (Manual) 0.2 K/mm3 (0.0-0.8) 10/28/20 01:58 Eosinophils # (Manual) 0.0 K/mm3 (0.0-0.4) 10/28/20 01:58 Basophils # (Manual) 0.0 K/mm3 (0.0-0.1) 10/28/20 01:58 Metamyelocytes # 0.0 K/mm3 10/28/20 01:58 Myelocytes # 0.0 K/mm3 10/28/20 01:58 Promyelocytes # 0.0 K/mm3 10/28/20 01:58 Blast Cells # 0.0 K/mm3 10/28/20 01:58 WBC Morphology Not Reportable 10/28/20 01:58 Hypersegmented Neuts Not Reportable 10/28/20 01:58 Hyposegmented Neuts Not Reportable 10/28/20 01:58 Hypogranular Neuts Not Reportable 10/28/20 01:58 Smudge Cells Not Reportable 10/28/20 01:58 Toxic Granulation Not Reportable 10/28/20 01:58 Toxic Vacuolation Not Reportable 10/28/20 01:58 Dohle Bodies Not Reportable 10/28/20 01:58 Pelger-Huet Anomaly Not Reportable 10/28/20 01:58 Trey Rods Not Reportable 10/28/20 01:58 Platelet Estimate Consistent w auto 10/28/20 01:58 Clumped Platelets Not Reportable 10/28/20 01:58 Plt Clumps, EDTA Not Reportable 10/28/20 01:58 Large Platelets Not Reportable 10/28/20 01:58 Giant Platelets Not Reportable 10/28/20 01:58 Platelet Satelliting Not Reportable 10/28/20 01:58 Plt Morphology Comment Not Reportable 10/28/20 01:58 RBC Morphology Normal 10/28/20 01:58 Dimorphic RBCs Not Reportable 10/28/20 01:58 Polychromasia Not Reportable 10/28/20 01:58 Hypochromasia Not Reportable 10/28/20 01:58 Poikilocytosis Not Reportable 10/28/20 01:58 Anisocytosis Not Reportable 10/28/20 01:58 Microcytosis Not Reportable 10/28/20 01:58 Macrocytosis Not Reportable 10/28/20 01:58 Spherocytes Not Reportable 10/28/20 01:58 Pappenheimer Bodies Not Reportable 10/28/20 01:58 Sickle Cells Not Reportable 10/28/20 01:58 Target Cells Not Reportable 10/28/20 01:58 Tear Drop Cells Not Reportable 10/28/20 01:58 Ovalocytes Not Reportable 10/28/20 01:58 Helmet Cells Not Reportable 10/28/20 01:[address] [place] Bodies Not Reportable 10/28/20 01:58 [place] Rings Not Reportable 10/28/20 01:58 [place] Cells Not Reportable 10/28/20 01:58 Bite Cells Not Reportable 10/28/20 01:58 Crenated Cell Not Reportable 10/28/20 01:58 Elliptocytes Not Reportable 10/28/20 01:58 Acanthocytes (Spur) Not Reportable 10/28/20 01:58 Rouleaux Not Reportable 10/28/20 01:58 Hemoglobin C Crystals Not Reportable 10/28/20 01:58 Schistocytes Not Reportable 10/28/20 01:58 Malaria parasites Not Reportable 10/28/20 01:58 Froylan Bodies Not Reportable 10/28/20 01:58 Hem Pathologist Commnt No 10/28/20 01:58 PT 13.2 Sec. (12.2-14.9) 10/28/20 01:58 INR 1.01 (0.87-1.13) 10/28/20 01:58 D-Dimer 347.85 ng/mlDDU (0-234) H 10/30/20 05:46 ABG pH 7.467 (7.320-7.450) H 10/30/20 16:15 POC ABG pCO2 31.8 mmHg (32.0-48.0) L 10/30/20 16:15 POC ABG pO2 67.8 mmHg (83-108) L 10/30/20 16:15 POC ABG HCO3 22.5 10/30/20 16:15 ABG O2 Saturation 93.1 (0-100) 10/30/20 16:15 POC ABG Base Excess -0.3 10/30/20 16:15 ABG Hemoglobin 15.2 (12.0-17.5) 10/30/20 16:15 ABG Oxyhemoglobin 92.3 (94-98) L 10/30/20 16:15 ABG Methemoglobin 0.3 (0.0-1.5) 10/30/20 16:15 ABG Sodium 133.7 mmol/L (136.0-145.0) L 10/30/20 16:15 ABG Potassium 3.9 mmol/L (3.40-4.50) 10/30/20 16:15 ABG Chloride 100.0 mmol/L (98-107) 10/30/20 16:15 ABG Glucose 145 mg/dL (65-95) H 10/30/20 16:15 Carboxyhemoglobin 0.6 (0.5-1.5) 10/30/20 16:15 FiO2 % 65 10/30/20 16:15 Sodium 136 mmol/L (137-145) L 10/31/20 05:15 Potassium 3.6 mmol/L (3.6-5.0) 10/31/20 05:15 Chloride 98.5 mmol/L (98-107) 10/31/20 05:15 Carbon Dioxide 25 mmol/L (22-30) 10/31/20 05:15 Anion Gap 16 mmol/L 10/31/20 05:15 BUN 21 mg/dL (9-20) H 10/31/20 05:15 Creatinine 0.6 mg/dL (0.8-1.3) L 10/31/20 05:15 Estimated GFR > 60 ml/min 10/31/20 05:15 BUN/Creatinine Ratio 35 % 10/31/20 05:15 Glucose 93 mg/dL (75-100) 10/31/20 05:15 Lactic Acid 1.40 mmol/L (0.7-2.0) 10/28/20 01:58 Calcium 8.0 mg/dL (8.4-10.2) L 10/31/20 05:15 Magnesium 2.20 mg/dL (1.7-2.3) 10/28/20 01:58 Ferritin 1775.0 ng/mL (30.0-300.0) H 10/30/20 05:46 Total Bilirubin 0.30 mg/dL (0.1-1.2) 10/31/20 05:15 AST 61 units/L (5-40) H 10/31/20 05:15 ALT 147 units/L (7-56) H 10/31/20 05:15 Alkaline Phosphatase 148 units/L (35-129) H 10/31/20 05:15 Lactate Dehydrogenase 302 units/L (91-180) H 10/30/20 05:46 Troponin T < 0.010 ng/mL (0.00-0.029) 10/31/20 05:15 C-Reactive Protein 19.90 mg/dL (0.00-1.30) H 10/29/20 05:50 NT-Pro-B Natriuret Pep 1661 pg/mL (0-450) H 10/28/20 01:58 Total Protein 6.4 g/dL (6.3-8.2) 10/31/20 05:15 Albumin 3.2 g/dL (3.9-5) L 10/31/20 05:15 Albumin/Globulin Ratio 1.0 % 10/31/20 05:15 Procalcitonin 1.74 ng/mL (<0.15) 10/28/20 01:58 Arterial Blood Glucose 145 mg/dL (65-95) H 10/30/20 16:15 Arterial Blood Ionized Calcium 4.6 mg/dL (4.6-5.3) 10/30/20 16:15 Coronavirus (PCR) Positive (Negative) A 10/29/20 Unknown Microbiology: Microbiology 10/28/20 01:58 Peripheral/Venous Blood Culture - Preliminary NO GROWTH AFTER 72 HOURS 10/28/20 01:51 Peripheral/Venous Blood Culture - Preliminary NO GROWTH AFTER 72 HOURS Nava/IV: Voiding Method Toilet Active Medications - Current Medications Current Medications: Generic Name Dose Route Start Last Admin Trade Name Freq PRN Reason Stop Dose Admin Acetaminophen 650 mg 10/28/20 03:35 10/29/20 10:19 Acetaminophen 325 Mg Tab PO 650 mg Q4H PRN Administration Pain MILD(1-3)/Fever >100.5/RIVERA Albuterol 2.5 mg 10/29/20 09:26 Albuterol 2.5 Mg/3 Ml Nebu IH Q4HRT PRN Shortness Of Breath Ascorbic Acid 1,000 mg 10/28/20 11:00 10/31/20 10:51 Ascorbic Acid 500 Mg Tab PO 1,000 mg BID TERI Administration Cholecalciferol 5,000 unit 10/28/20 11:00 10/31/20 10:51 Cholecalciferol (Vit D3) 5,000 Unit Tab PO 5,000 unit DAILY TERI Administration Dexamethasone 6 mg 10/30/20 10:00 10/31/20 10:51 Dexamethasone 2 Mg Tab PO 11/06/20 10:01 6 mg DAILY TERI Administration Guaifenesin 10 ml 10/29/20 10:26 Guaifenesin Dm 200/20 Mg Oral Liqd 10 Ml PO Q4H PRN Cough Heparin Sodium (Porcine) 5,000 unit 10/28/20 06:00 10/31/20 06:21 Heparin 5,000 Unit/1 Ml Vial SUB-Q 5,000 unit Q8HR TERI Administration Hydralazine HCl 10 mg 10/28/20 03:36 Hydralazine 20 Mg/1 Ml Inj IV Q6H PRN htn Hydrocodone Bit/Homatropine Methylb 10 ml 10/29/20 10:25 10/30/20 13:57 Hydrocodone/Homatropine 5-1.5mg /5 Ml Oral Liqd Unit Dose PO 10 ml Q6H PRN Administration Cough Ceftriaxone Sodium 2 gm in 100 mls @ 200 mls/hr 10/29/20 03:00 10/31/20 03:56 Rocephin/Ns 2 Gm/100 Ml IV 11/01/20 04:30 200 mls/hr Q24H TERI Administration Protocol Azithromycin 500 mg in 250 mls @ 250 mls/hr 10/29/20 04:00 10/31/20 06:21 Zithromax/Ns IV 11/01/20 04:59 250 mls/hr Q24H TERI Administration Protocol REMDESIVIR 100 mg/ Sodium 250 mls @ 500 mls/hr 10/29/20 21:00 10/30/20 22:24 Chloride IV 11/01/20 21:29 500 mls/hr Q24HR@2100 TERI Administration Ondansetron HCl 4 mg 10/28/20 03:35 Ondansetron 4 Mg/2 Ml Inj IV Q8H PRN Nausea And Vomiting Pantoprazole Sodium 40 mg 10/28/20 07:30 10/31/20 10:51 Pantoprazole 40 Mg Tab PO 40 mg QDAC TERI Administration Sodium Chloride 10 ml 10/28/20 10:00 10/31/20 10:50 Sodium Chloride 0.9% 10 Ml Flush Syringe IV 10 ml BID TERI Administration Sodium Chloride 10 ml 10/28/20 03:35 Sodium Chloride 0.9% 10 Ml Flush Syringe IV PRN PRN LINE FLUSH Sodium Chloride 50 ml 10/28/20 21:00 10/30/20 23:00 Sodium Chloride 0.9% 50 Ml Ivpb IV 11/01/20 21:01 50 ml Q24HR@2100 TERI Administration Zinc Sulfate 220 mg 10/28/20 11:00 10/31/20 10:51 Zinc Sulfate 220 Mg Cap PO 220 mg QDAY TERI Administration
--- NOTE | 2020-10-31 12:19 | XRay Report ---
CHEST 1 VIEW INDICATION: Pneumonia, Covid 19. COMPARISON: 10/28/2020 FINDINGS: Support devices: None. Heart: Within normal limits. Lungs/Pleura: Poor inspiration. Given differences in the level of inspiration, no appreciable change in the bilateral lung opacities. No pleural effusion or pneumothorax is appreciated. Additional findings: None. IMPRESSION: No significant interval change in the bilateral lung opacities. No new acute process. Signer Name: Chung Gomez Jr, MD Signed: 10/31/2020 12:15 PM Workstation Name: [id number]
--- NOTE | 2020-10-31 12:58 | Progress Note ---
Assessment and Plan Cultures: SARS CoV2 PCR: Indeterminate here, positive as outpatient Blood culture: negative A/P: 44-year-old male with: #Bilateral pneumonia: Secondary to COVID-19. #Acute hypoxic respiratory failure: On HFNC #Transaminitis: Secondary to COVID-19. Stable. Recs: -continue IV/PO Dexamethasone x 10 days -Procalcitonin was 1.74, continue empiric antibiotics x total 5 days -continue IV remdesivir, D4 of 5 -prophylactic anticoagulation based on d-dimer per hospital protocol -trend ferritin, LDH, d-dimer, CRP every 2-3 days for risk stratification and to assess disease progression Angel Hernandez MD, FACP [facility], [place], [facility] ([facility]) O: [phone] F: [phone] Subjective Date of service: 10/31/20 Principal diagnosis: Acute hypoxemic resp failure; COVID-19; Pneumonia; Transaminitis; Anxiety Interval history: No fever. Remains on HFNC. Objective - Exam Narrative Exam: Physical Exam (reviewed in chart to minimize risk of transmission) Constitutional: deferred Head, Ears, Nose: deferred Eyes: deferred Neck: deferred Oral: deferred Cardiovascular: deferred Respiratory: deferred GI: deferred Musculoskeletal: deferred Skin: deferred Hem/Lymphatic: deferred Psych: deferred Neurological: deferred - Constitutional Vitals: Vital Signs Temp Pulse Resp BP Pulse Ox 98.3 F 72 22 116/79 94 10/31/20 04:27 10/31/20 04:27 10/31/20 04:27 10/31/20 04:27 10/31/20 08:00 Temperature -Last 24 Hours Temperature 98.3 F Temperature 97.9 F Temperature 97.2 F - Labs CBC & Chem 7: 10/29/20 05:50 10/31/20 05:15 Labs: Abnormal lab results 10/30/20 10/31/20 Range/Units 16:15 05:15 ABG pH 7.467 H (7.320-7.450) POC ABG pCO2 31.8 L (32.0-48.0) mmHg POC ABG pO2 67.8 L (83-108) mmHg ABG Oxyhemoglobin 92.3 L (94-98) ABG Sodium 133.7 L (136.0-145.0) mmol/L ABG Glucose 145 H (65-95) mg/dL Sodium 136 L (137-145) mmol/L BUN 21 H (9-20) mg/dL Creatinine 0.6 L (0.8-1.3) mg/dL Calcium 8.0 L (8.4-10.2) mg/dL AST 61 H (5-40) units/L ALT 147 H (7-56) units/L Alkaline Phosphatase 148 H (35-129) units/L Albumin 3.2 L (3.9-5) g/dL Arterial Blood Glucose 145 H (65-95) mg/dL
--- NOTE | 2020-10-31 13:28 | Progress Note ---
Assessment and Plan Acute respiratory failure with hypoxia COVID-19 Pneumonia due to COVID-19 virus Transaminitis Anxiety - repeat CXR with persistent moderate bilateral pneumonic infiltrates - deploy BIPAP scheduled qhs with prn daytime use - flow increased to 40 liters - continue care as below otherwise; - continue Remdesivir as per ID/Pulmonary developed protocols - continue systemic steroids for severe COVID-19 infection - follow repeat COVID tests results - zinc and vitamin C supplementation - Monitor inflammatory markers per facility protocol - ferritin, Ddimer, CRP - therapeutic anticoagulation per system Protocol based on d-dimer and clinical considerations (VTE prophylaxis now) - Continue contact and airborne isolation - continue to wean supplemental oxygen to keep O2 sats > 92% - continue Bronchodilators (ETELVINA) with pulm hygiene per RT - continue to avoid nephrotoxins, renally dose all medications - continue mobility protocols to prevent pressure ulcers - PT/OT as tolerated - Wound care per RN/WCT - continue accuchecks with glycemic control per SSI for target blood glucose < 180 mg/dL - tobacco abstinence strongly counseled at the bedside - home oxygen evaluation at discharge - GI & VTE prophylaxis - Flu & pneumovax per protocol - Pulmonary out patient follow up for PFTs and optimization of respiratory status - aspiration precautions - complete empiric AB's per ID rec's - prn analgesia per pain score - Maintenance of sleep-wake cycle, avoid delirium - Monitor hemodynamics closely - continue other care per attending / other consultants - discharge planning ongoing concurrently .... Re-evaluate in am & prn CONDITION: CRITICAL PROGNOSIS: GUARDED CODE STATUS: FULL CODE The high probability of a clinically significant, sudden or life-threatening deterioration of the [respiratory, cardiovascular, hematologic & neurologic] system(s) required my full and direct attention, intervention and personal management. The aggregate critical care time was [32] minutes without overlap. Time includes spent on; [x] Data Review and interpretation [x] Patient assessment and monitoring of vital signs [x] Documentation [x] Medication orders and management Subjective Date of service: 10/31/20 Principal diagnosis: Acute hypoxemic resp failure; COVID-19; Pneumonia; Transaminitis; Anxiety Interval history: Patient is seen today for: Acute hypoxemic respiratory failure; COVID-19; Pneumonia; Transaminitis; Anxiety Seen and examined at bedside; 24hour events reviewed; nursing and respiratory care staff consulted; no adverse overnight events reported to me; resting in bed; remains on HFNC @ 65%; CXR with persistent bilateral disease burden; no gross hemoptysis Objective Vital Signs - 12hr 10/31/20 10/31/20 10/31/20 02:01 02:05 04:27 Temperature 98.3 F Pulse Rate 73 72 Respiratory 18 22 Rate Blood Pressure 125/82 116/79 O2 Sat by Pulse 93 95 95 Oximetry 10/31/20 08:00 Temperature Pulse Rate Respiratory Rate Blood Pressure O2 Sat by Pulse 94 Oximetry Constitutional: alert, appears uncomfortable, other (middle aged male with mildfly increase respiratory effort at rest) Eyes: non-icteric ENT: oropharynx moist Neck: supple, no lymphadenopathy, no JVD Effort: mildly labored Ascultation: Bilateral: rales (bases; inspiratory) Percussion: Bilateral: not dull Cardiovascular: regular rate and rhythm Gastrointestinal: normoactive bowel sounds, soft, non-tender, non-distended Integumentary: normal Extremities: no cyanosis, no edema, pulses normal, no ischemia or petechiae Neurologic: normal mental status, non-focal exam, pupils equal and round, CN II- XII normal Psychiatric: mood appropriate, anxious CBC and BMP: 10/29/20 05:50 11/01/20 06:27 ABG, PT/INR, D-dimer: ABG ABG pH 7.467 (7.320-7.450) H 10/30/20 16:15 POC ABG pCO2 31.8 mmHg (32.0-48.0) L 10/30/20 16:15 POC ABG pO2 67.8 mmHg (83-108) L 10/30/20 16:15 POC ABG HCO3 22.5 10/30/20 16:15 ABG O2 Saturation 93.1 (0-100) 10/30/20 16:15 PT/INR, D-dimer PT 13.2 Sec. (12.2-14.9) 10/28/20 01:58 INR 1.01 (0.87-1.13) 10/28/20 01:58 D-Dimer 347.85 ng/mlDDU (0-234) H 10/30/20 05:46 Abnormal lab findings: Abnormal Labs 10/28/20 10/28/20 10/28/20 01:58 01:58 01:58 Hgb 15.4 H MCH 33 H MCHC 36 H Lymph % (Auto) Lymph # (Auto) Seg Neutrophils % Seg Neuts % (Manual) 97.0 H Lymphocytes % (Manual) 1.0 L Seg Neutrophils # Man 10.7 H Lymphocytes # (Manual) 0.1 L D-Dimer ABG pH POC ABG pCO2 POC ABG pO2 ABG Oxyhemoglobin ABG Sodium ABG Glucose Sodium 135 L Chloride 96.1 L BUN 8 L Creatinine 0.6 L Glucose 130 H Calcium Ferritin AST 45 H ALT 69 H Alkaline Phosphatase 189 H Lactate Dehydrogenase 339 H C-Reactive Protein 32.80 H NT-Pro-B Natriuret Pep Albumin 3.6 L Arterial Blood Glucose Coronavirus (PCR) 10/28/20 10/28/20 10/28/20 01:58 01:58 13:48 Hgb MCH MCHC Lymph % (Auto) Lymph # (Auto) Seg Neutrophils % Seg Neuts % (Manual) Lymphocytes % (Manual) Seg Neutrophils # Man Lymphocytes # (Manual) D-Dimer ABG pH POC ABG pCO2 POC ABG pO2 ABG Oxyhemoglobin ABG Sodium ABG Glucose Sodium 134 L Chloride 96.2 L BUN Creatinine 0.6 L Glucose 159 H Calcium Ferritin 1631.0 H AST 41 H ALT 59 H Alkaline Phosphatase 187 H Lactate Dehydrogenase C-Reactive Protein NT-Pro-B Natriuret Pep 1661 H Albumin 3.6 L Arterial Blood Glucose Coronavirus (PCR) 10/29/20 10/29/20 10/29/20 05:50 05:50 05:50 Hgb MCH MCHC 36 H Lymph % (Auto) 5.8 L Lymph # (Auto) 0.4 L Seg Neutrophils % 87.8 H Seg Neuts % (Manual) Lymphocytes % (Manual) Seg Neutrophils # Man Lymphocytes # (Manual) D-Dimer ABG pH POC ABG pCO2 POC ABG pO2 ABG Oxyhemoglobin ABG Sodium ABG Glucose Sodium Chloride BUN Creatinine 0.6 L Glucose 143 H Calcium Ferritin AST 59 H ALT 71 H Alkaline Phosphatase 159 H Lactate Dehydrogenase C-Reactive Protein 19.90 H NT-Pro-B Natriuret Pep Albumin 3.0 L Arterial Blood Glucose Coronavirus (PCR) 10/29/20 10/30/20 10/30/20 Unknown 05:46 05:46 Hgb MCH MCHC Lymph % (Auto) Lymph # (Auto) Seg Neutrophils % Seg Neuts % (Manual) Lymphocytes % (Manual) Seg Neutrophils # Man Lymphocytes # (Manual) D-Dimer 347.85 H ABG pH POC ABG pCO2 POC ABG pO2 ABG Oxyhemoglobin ABG Sodium ABG Glucose Sodium Chloride BUN Creatinine 0.6 L Glucose 133 H Calcium 8.3 L Ferritin AST 52 H ALT 82 H Alkaline Phosphatase 144 H Lactate Dehydrogenase C-Reactive Protein NT-Pro-B Natriuret Pep Albumin 3.1 L Arterial Blood Glucose Coronavirus (PCR) Positive A 10/30/20 10/30/20 10/30/20 05:46 05:46 16:15 Hgb MCH MCHC Lymph % (Auto) Lymph # (Auto) Seg Neutrophils % Seg Neuts % (Manual) Lymphocytes % (Manual) Seg Neutrophils # Man Lymphocytes # (Manual) D-Dimer ABG pH 7.467 H POC ABG pCO2 31.8 L POC ABG pO2 67.8 L ABG Oxyhemoglobin 92.3 L ABG Sodium 133.7 L ABG Glucose 145 H Sodium Chloride BUN Creatinine Glucose 133 H Calcium Ferritin 1775.0 H AST ALT Alkaline Phosphatase Lactate Dehydrogenase 302 H C-Reactive Protein NT-Pro-B Natriuret Pep Albumin Arterial Blood Glucose 145 H Coronavirus (PCR) 10/31/20 05:15 Hgb MCH MCHC Lymph % (Auto) Lymph # (Auto) Seg Neutrophils % Seg Neuts % (Manual) Lymphocytes % (Manual) Seg Neutrophils # Man Lymphocytes # (Manual) D-Dimer ABG pH POC ABG pCO2 POC ABG pO2 ABG Oxyhemoglobin ABG Sodium ABG Glucose Sodium 136 L Chloride BUN 21 H Creatinine 0.6 L Glucose Calcium 8.0 L Ferritin AST 61 H ALT 147 H Alkaline Phosphatase 148 H Lactate Dehydrogenase C-Reactive Protein NT-Pro-B Natriuret Pep Albumin 3.2 L Arterial Blood Glucose Coronavirus (PCR) Allied health notes reviewed: nursing
--- NOTE | 2020-10-31 15:37 | Event Note ---
Date: 10/31/20 Called Laura Chapin on [phone] and updated management plan.
[2020-10-31] MEDS ORDERED: NON-FORMULARY EACH (Aspirin Baby Chew Tab 81 MG) PO SCH (16:00)
[2020-10-31] MEDS ORDERED: METOPROLOL 12.5 MG PO SCH (16:00)
[2020-10-31] MEDS: REMDESIVIR 100 MG in SODIUM CHLORIDE 0.9% 250ML 250 ML IV SCH (21:22)
[2020-10-31] MEDS: SODIUM CHLORIDE 0.9% 50 ML IVPB IV SCH (21:23)
[2020-10-31] MEDS: METOPROLOL TARTRATE 25 MG TAB PO SCH (21:23)
[2020-11-01] MEDS: cefTRIAXone/NS 2 GM/100 ML 2 GM/100 ML BAG IV SCH (03:21)
[2020-11-01] MEDS: AZITHROMYCIN/NS 500 MG/250 ML 500 MG/250 ML BAG IV SCH (03:22)
[2020-11-01] MEDS: HEPARIN 5,000 UNIT/1 ML VIAL SUB-Q SCH ×3 (05:39→21:30)
[2020-11-01] MEDS: PANTOPRAZOLE 40 MG TAB PO SCH (08:36)
[2020-11-01] MEDS: ACETAMINOPHEN 325 MG TAB PO PRN (08:36)
--- NOTE | 2020-11-01 09:42 | Progress Note ---
Assessment and Plan Assessment and plan: 44-year-old gentleman with no significant past medical history was brought to the emergency room because of shortness of breath coughing and chest tightness . Patient was diagnosed with Covid around 7 to 8 days ago. He is brought to the hospital by emergency medical services with a complaint of chest tightness, cough, shortness of breath, malaise and fatigue. In the emergency room patient is found to have acute hypoxic respiratory failure and Covid pneumonia On discussion patient spouse also was diagnosed with COVID-19 but with a more mild disease. There were plan to get the vaccine but got diagnosed with the disease prior. Sepsis secondary to COVID19 Bilateral Pneumonia COVID19 Transaminitis Persistent Cough Anxiety Plan Continue supportive care, patient continues on high flow Oxygen now at 35 l/min. He still has shortness of breath Continue dexamethasone 6 mg to complete 10 days. Remdesivir discontinued due to transaminitis being elevated Pulmonary consulted and input noted. ID input is appreciated. D-dimer 347.85 Blood cultures done 10/28/20, pending Started antitussives medication for cough Encourage prone positioning as tolerated Continue to monitor inflammatory markers DVT and GI prophylaxis Plan of care discussed with the patient and spouse in detail. 10/31/20 patient had chest pain last night, now resolved. Still complain of shortness of breath. No more fever. He also complain of insomnia and requesting sleep aid. he is still on HFNC at 35 l/min. Will repeat CXR today to re-evaluate Covid-19 pneumonia. I discussed plan with patient and on phone. 11/01 Patient with acute respiratory failure due to Covid-19 pneumonia. Still has shortness of breath so Oxygen increased to 40 l/min yesterday. CXR done yesterday was unchanged showing bilateral pneumonia. Pulmonology following. I discussed management plan with on the phone. The high probability of a clinically significant, sudden or life threatening deterioration of the [pulmonary] system(s) required my full and direct attention, intervention and personal management. The aggregate critical care time was [34] minutes. This time is in addition to time spent performing reported procedures but includes the following: [x] Data Review and interpretation [x] Patient assessment and monitoring of vital signs [x] Documentation [x] Medication orders and management History Interval history: still has shortness of breath, so Oxxygen increased to 40 l/min HFNC yesterday Still coughing Fever of 100.1 on 10/28 No more fever sleeplessness Hospitalist Physical - Physical exam Narrative exam: Gen: Not in acute distress, lying in bed, On Oxygen by HFNC at 40 l/min Neck:supple, no JVD Lungs: bilateral crackles, no wheeze heart:S1 and S2 reg, no murmurs, rubs or gallop Abdomen:soft, NT, non distended, normal bowel sounds Ext:No edema, no clubbing, no cyanosis Neuro:Awake,alert, oriented X 3. No focal signs Psych:calm. co-operative, calm - Constitutional Vitals: Temp Pulse Resp BP Pulse Ox 98.0 F 88 24 116/79 95 11/01/20 05:17 11/01/20 05:17 11/01/20 05:17 11/01/20 05:17 11/01/20 08:05 HEART Score - HEART Score Troponin: Troponin T < 0.010 ng/mL (0.00-0.029) 10/31/20 17:45 Results - Labs CBC & Chem 7: 10/29/20 05:50 11/01/20 06:27 Labs: Laboratory Last Values WBC 7.2 K/mm3 (4.5-11.0) 10/29/20 05:50 RBC 4.51 M/mm3 (3.65-5.03) 10/29/20 05:50 Hgb 14.5 gm/dl (11.8-15.2) 10/29/20 05:50 Hct 40.8 % (35.5-45.6) 10/29/20 05:50 MCV 91 fl (84-94) 10/29/20 05:50 MCH 32 pg (28-32) 10/29/20 05:50 MCHC 36 % (32-34) H 10/29/20 05:50 RDW 13.6 % (13.2-15.2) 10/29/20 05:50 Plt Count 330 K/mm3 (140-440) 10/29/20 05:50 Lymph % (Auto) 5.8 % (13.4-35.0) L 10/29/20 05:50 [place] % (Auto) 6.3 % (0.0-7.3) 10/29/20 05:50 Eos % (Auto) 0.0 % (0.0-4.3) 10/29/20 05:50 Baso % (Auto) 0.1 % (0.0-1.8) 10/29/20 05:50 Lymph # (Auto) 0.4 K/mm3 (1.2-5.4) L 10/29/20 05:50 [place] # (Auto) 0.5 K/mm3 (0.0-0.8) 10/29/20 05:50 Eos # (Auto) 0.0 K/mm3 (0.0-0.4) 10/29/20 05:50 Baso # (Auto) 0.0 K/mm3 (0.0-0.1) 10/29/20 05:50 Add Manual Diff Complete 10/28/20 01:58 Total Counted 100 10/28/20 01:58 Seg Neutrophils % 87.8 % (40.0-70.0) H 10/29/20 05:50 Seg Neuts % (Manual) 97.0 % (40.0-70.0) H 10/28/20 01:58 Lymphocytes % (Manual) 1.0 % (13.4-35.0) L 10/28/20 01:58 Monocytes % (Manual) 2.0 % (0.0-7.3) 10/28/20 01:58 Nucleated RBC % Not Reportable 10/28/20 01:58 Seg Neutrophils # 6.4 K/mm3 (1.8-7.7) 10/29/20 05:50 Seg Neutrophils # Man 10.7 K/mm3 (1.8-7.7) H 10/28/20 01:58 Band Neutrophils # 0.0 K/mm3 10/28/20 01:58 Lymphocytes # (Manual) 0.1 K/mm3 (1.2-5.4) L 10/28/20 01:58 Abs React Lymphs (Man) 0.0 K/mm3 10/28/20 01:58 Monocytes # (Manual) 0.2 K/mm3 (0.0-0.8) 10/28/20 01:58 Eosinophils # (Manual) 0.0 K/mm3 (0.0-0.4) 10/28/20 01:58 Basophils # (Manual) 0.0 K/mm3 (0.0-0.1) 10/28/20 01:58 Metamyelocytes # 0.0 K/mm3 10/28/20 01:58 Myelocytes # 0.0 K/mm3 10/28/20 01:58 Promyelocytes # 0.0 K/mm3 10/28/20 01:58 Blast Cells # 0.0 K/mm3 10/28/20 01:58 WBC Morphology Not Reportable 10/28/20 01:58 Hypersegmented Neuts Not Reportable 10/28/20 01:58 Hyposegmented Neuts Not Reportable 10/28/20 01:58 Hypogranular Neuts Not Reportable 10/28/20 01:58 Smudge Cells Not Reportable 10/28/20 01:58 Toxic Granulation Not Reportable 10/28/20 01:58 Toxic Vacuolation Not Reportable 10/28/20 01:58 Dohle Bodies Not Reportable 10/28/20 01:58 Pelger-Huet Anomaly Not Reportable 10/28/20 01:58 Trey Rods Not Reportable 10/28/20 01:58 Platelet Estimate Consistent w auto 10/28/20 01:58 Clumped Platelets Not Reportable 10/28/20 01:58 Plt Clumps, EDTA Not Reportable 10/28/20 01:58 Large Platelets Not Reportable 10/28/20 01:58 Giant Platelets Not Reportable 10/28/20 01:58 Platelet Satelliting Not Reportable 10/28/20 01:58 Plt Morphology Comment Not Reportable 10/28/20 01:58 RBC Morphology Normal 10/28/20 01:58 Dimorphic RBCs Not Reportable 10/28/20 01:58 Polychromasia Not Reportable 10/28/20 01:58 Hypochromasia Not Reportable 10/28/20 01:58 Poikilocytosis Not Reportable 10/28/20 01:58 Anisocytosis Not Reportable 10/28/20 01:58 Microcytosis Not Reportable 10/28/20 01:58 Macrocytosis Not Reportable 10/28/20 01:58 Spherocytes Not Reportable 10/28/20 01:58 Pappenheimer Bodies Not Reportable 10/28/20 01:58 Sickle Cells Not Reportable 10/28/20 01:58 Target Cells Not Reportable 10/28/20 01:58 Tear Drop Cells Not Reportable 10/28/20 01:58 Ovalocytes Not Reportable 10/28/20 01:58 Helmet Cells Not Reportable 10/28/20 01:58 [place] Bodies Not Reportable 10/28/20 01:58 [place] Rings Not Reportable 10/28/20 01:58 Metcalf Cells Not Reportable 10/28/20 01:58 Bite Cells Not Reportable 10/28/20 01:58 Crenated Cell Not Reportable 10/28/20 01:58 Elliptocytes Not Reportable 10/28/20 01:58 Acanthocytes (Spur) Not Reportable 10/28/20 01:58 Rouleaux Not Reportable 10/28/20 01:58 Hemoglobin C Crystals Not Reportable 10/28/20 01:58 Schistocytes Not Reportable 10/28/20 01:58 Malaria parasites Not Reportable 10/28/20 01:58 Froylan Bodies Not Reportable 10/28/20 01:58 Hem Pathologist Commnt No 10/28/20 01:58 PT 13.2 Sec. (12.2-14.9) 10/28/20 01:58 INR 1.01 (0.87-1.13) 10/28/20 01:58 D-Dimer 406.47 ng/mlDDU (0-234) H 11/01/20 06:27 ABG pH 7.467 (7.320-7.450) H 10/30/20 16:15 POC ABG pCO2 31.8 mmHg (32.0-48.0) L 10/30/20 16:15 POC ABG pO2 67.8 mmHg (83-108) L 10/30/20 16:15 POC ABG HCO3 22.5 10/30/20 16:15 ABG O2 Saturation 93.1 (0-100) 10/30/20 16:15 POC ABG Base Excess -0.3 10/30/20 16:15 ABG Hemoglobin 15.2 (12.0-17.5) 10/30/20 16:15 ABG Oxyhemoglobin 92.3 (94-98) L 10/30/20 16:15 ABG Methemoglobin 0.3 (0.0-1.5) 10/30/20 16:15 ABG Sodium 133.7 mmol/L (136.0-145.0) L 10/30/20 16:15 ABG Potassium 3.9 mmol/L (3.40-4.50) 10/30/20 16:15 ABG Chloride 100.0 mmol/L (98-107) 10/30/20 16:15 ABG Glucose 145 mg/dL (65-95) H 10/30/20 16:15 Carboxyhemoglobin 0.6 (0.5-1.5) 10/30/20 16:15 FiO2 % 65 10/30/20 16:15 Sodium 136 mmol/L (137-145) L 10/31/20 05:15 Potassium 3.6 mmol/L (3.6-5.0) 10/31/20 05:15 Chloride 98.5 mmol/L (98-107) 10/31/20 05:15 Carbon Dioxide 25 mmol/L (22-30) 10/31/20 05:15 Anion Gap 16 mmol/L 10/31/20 05:15 BUN 21 mg/dL (9-20) H 10/31/20 05:15 Creatinine 0.6 mg/dL (0.8-1.3) L 10/31/20 05:15 Estimated GFR > 60 ml/min 10/31/20 05:15 BUN/Creatinine Ratio 35 % 10/31/20 05:15 Glucose 81 mg/dL (75-100) 11/01/20 06:27 Lactic Acid 1.40 mmol/L (0.7-2.0) 10/28/20 01:58 Calcium 8.0 mg/dL (8.4-10.2) L 10/31/20 05:15 Magnesium 2.20 mg/dL (1.7-2.3) 10/28/20 01:58 Ferritin 1667.0 ng/mL (30.0-300.0) H 11/01/20 06:27 Total Bilirubin 0.30 mg/dL (0.1-1.2) 10/31/20 05:15 AST 61 units/L (5-40) H 10/31/20 05:15 ALT 147 units/L (7-56) H 10/31/20 05:15 Alkaline Phosphatase 148 units/L (35-129) H 10/31/20 05:15 Lactate Dehydrogenase 303 units/L (91-180) H 11/01/20 06:27 Troponin T < 0.010 ng/mL (0.00-0.029) 10/31/20 17:45 C-Reactive Protein 19.90 mg/dL (0.00-1.30) H 10/29/20 05:50 NT-Pro-B Natriuret Pep 1661 pg/mL (0-450) H 10/28/20 01:58 Total Protein 6.4 g/dL (6.3-8.2) 10/31/20 05:15 Albumin 3.2 g/dL (3.9-5) L 10/31/20 05:15 Albumin/Globulin Ratio 1.0 % 10/31/20 05:15 Procalcitonin 1.74 ng/mL (<0.15) 10/28/20 01:58 Arterial Blood Glucose 145 mg/dL (65-95) H 10/30/20 16:15 Arterial Blood Ionized Calcium 4.6 mg/dL (4.6-5.3) 10/30/20 16:15 Coronavirus (PCR) Positive (Negative) A 10/29/20 Unknown Microbiology: Microbiology 10/28/20 01:58 Peripheral/Venous Blood Culture - Preliminary NO GROWTH AFTER 4 DAYS 10/28/20 01:51 Peripheral/Venous Blood Culture - Preliminary NO GROWTH AFTER 4 DAYS Nava/IV: Voiding Method Urinal Active Medications - Current Medications Current Medications: Generic Name Dose Route Start Last Admin Trade Name Freq PRN Reason Stop Dose Admin Acetaminophen 650 mg 10/28/20 03:35 11/01/20 08:36 Acetaminophen 325 Mg Tab PO 650 mg Q4H PRN Administration Pain MILD(1-3)/Fever >100.5/RIVERA Albuterol 2.5 mg 10/29/20 09:26 Albuterol 2.5 Mg/3 Ml Nebu IH Q4HRT PRN Shortness Of Breath Ascorbic Acid 1,000 mg 10/28/20 11:00 10/31/20 21:23 Ascorbic Acid 500 Mg Tab PO 1,000 mg BID TERI Administration Aspirin 81 mg 11/01/20 10:00 Aspirin 81 Mg Tab Chew PO QDAY TERI Cholecalciferol 5,000 unit 10/28/20 11:00 10/31/20 10:51 Cholecalciferol (Vit D3) 5,000 Unit Tab PO 5,000 unit DAILY TERI Administration Dexamethasone 6 mg 10/30/20 10:00 10/31/20 10:51 Dexamethasone 2 Mg Tab PO 11/06/20 10:01 6 mg DAILY TERI Administration Guaifenesin 10 ml 10/29/20 10:26 Guaifenesin Dm 200/20 Mg Oral Liqd 10 Ml PO Q4H PRN Cough Heparin Sodium (Porcine) 5,000 unit 10/28/20 06:00 11/01/20 05:39 Heparin 5,000 Unit/1 Ml Vial SUB-Q 5,000 unit Q8HR TERI Administration Hydralazine HCl 10 mg 10/28/20 03:36 Hydralazine 20 Mg/1 Ml Inj IV Q6H PRN htn Hydrocodone Bit/Homatropine Methylb 10 ml 10/29/20 10:25 10/30/20 13:57 Hydrocodone/Homatropine 5-1.5mg /5 Ml Oral Liqd Unit Dose PO 10 ml Q6H PRN Administration Cough REMDESIVIR 100 mg/ Sodium 250 mls @ 500 mls/hr 10/29/20 21:00 10/31/20 21:22 Chloride IV 11/01/20 21:29 500 mls/hr Q24HR@2100 TERI Administration Metoprolol Tartrate 12.5 mg 10/31/20 22:00 10/31/20 21:23 Metoprolol Tartrate 25 Mg Tab PO 12.5 mg BID TERI Administration Ondansetron HCl 4 mg 10/28/20 03:35 Ondansetron 4 Mg/2 Ml Inj IV Q8H PRN Nausea And Vomiting Pantoprazole Sodium 40 mg 10/28/20 07:30 11/01/20 08:36 Pantoprazole 40 Mg Tab PO 40 mg QDAC TERI Administration Sodium Chloride 10 ml 10/28/20 10:00 10/31/20 21:24 Sodium Chloride 0.9% 10 Ml Flush Syringe IV 10 ml BID TERI Administration Sodium Chloride 10 ml 10/28/20 03:35 Sodium Chloride 0.9% 10 Ml Flush Syringe IV PRN PRN LINE FLUSH Sodium Chloride 50 ml 10/28/20 21:00 10/31/20 21:23 Sodium Chloride 0.9% 50 Ml Ivpb IV 11/01/20 21:01 50 ml Q24HR@2100 TERI Administration Zinc Sulfate 220 mg 10/28/20 11:00 10/31/20 10:51 Zinc Sulfate 220 Mg Cap PO 220 mg QDAY TERI Administration
[2020-11-01] MEDS: ZINC SULFATE 220 MG CAP PO SCH (10:08)
[2020-11-01] MEDS: ASPIRIN 81 MG TAB CHEW PO SCH (10:08)
[2020-11-01] MEDS: DEXAMETHASONE 2 MG TAB PO SCH (10:08)
[2020-11-01] MEDS: ASCORBIC ACID 500 MG TAB PO SCH ×2 (10:09→21:31)
[2020-11-01] MEDS: CHOLECALCIFEROL (VIT D3) 5,000 UNIT TAB PO SCH (10:09)
[2020-11-01] MEDS: METOPROLOL TARTRATE 25 MG TAB PO SCH ×2 (10:15→21:31)
--- NOTE | 2020-11-01 12:55 | Progress Note ---
Assessment and Plan Acute respiratory failure with hypoxia COVID-19 Pneumonia due to COVID-19 virus Transaminitis Anxiety - notified RT to put BIPAP in room (scheduled qhs with prn daytime use) - continue care as below otherwise; - continue Remdesivir as per ID/Pulmonary developed protocols - continue systemic steroids for severe COVID-19 infection - follow repeat COVID tests results - zinc and vitamin C supplementation - Monitor inflammatory markers per facility protocol - ferritin, Ddimer, CRP - therapeutic anticoagulation per system Protocol based on d-dimer and clinical considerations (VTE prophylaxis now) - Continue contact and airborne isolation - continue to wean supplemental oxygen to keep O2 sats > 92% - continue Bronchodilators (ETELVINA) with pulm hygiene per RT - continue to avoid nephrotoxins, renally dose all medications - continue mobility protocols to prevent pressure ulcers - PT/OT as tolerated - Wound care per RN/WCT - continue accuchecks with glycemic control per SSI for target blood glucose < 180 mg/dL - tobacco abstinence strongly counseled at the bedside - home oxygen evaluation at discharge - GI & VTE prophylaxis - Flu & pneumovax per protocol - Pulmonary out patient follow up for PFTs and optimization of respiratory status - aspiration precautions - complete empiric AB's per ID rec's - prn analgesia per pain score - Maintenance of sleep-wake cycle, avoid delirium - Monitor hemodynamics closely - continue other care per attending / other consultants - discharge planning ongoing concurrently .... Re-evaluate in am & prn CONDITION: CRITICAL PROGNOSIS: GUARDED CODE STATUS: FULL CODE The high probability of a clinically significant, sudden or life-threatening deterioration of the [respiratory, cardiovascular, hematologic & neurologic] system(s) required my full and direct attention, intervention and personal management. The aggregate critical care time was [35] minutes without overlap. Time includes spent on; [x] Data Review and interpretation [x] Patient assessment and monitoring of vital signs [x] Documentation [x] Medication orders and management Subjective Date of service: 11/01/20 Principal diagnosis: Acute hypoxemic resp failure; COVID-19; Pneumonia; Transaminitis; Anxiety Interval history: Patient is seen today for: Acute hypoxemic respiratory failure; COVID-19; Pneumonia; Transaminitis; Anxiety Seen and examined at bedside; 24hour events reviewed; nursing and respiratory care staff consulted; no adverse overnight events reported to me; resting in bed; remains on HFNC @ 75%; feels better though FiO2 increased; BIPAP not yet in room Objective Vital Signs - 12hr 11/01/20 11/01/20 11/01/20 05:17 08:05 10:12 Temperature 98.0 F Pulse Rate 88 Respiratory 24 Rate Blood Pressure 116/79 115/75 O2 Sat by Pulse 97 95 Oximetry 11/01/20 11/01/20 11/01/20 10:15 12:26 12:29 Temperature 97.9 F Pulse Rate 95 H 85 Respiratory 16 Rate Blood Pressure 115/75 119/73 O2 Sat by Pulse Oximetry Constitutional: alert, appears uncomfortable (less so), other (middle aged male with mildfly increase respiratory effort at rest) Eyes: non-icteric ENT: oropharynx moist Neck: supple, no lymphadenopathy, no JVD Effort: mildly labored Ascultation: Bilateral: rales (bases; inspiratory) Percussion: Bilateral: not dull Cardiovascular: regular rate and rhythm Gastrointestinal: normoactive bowel sounds, soft, non-tender, non-distended Integumentary: normal Extremities: no cyanosis, no edema, pulses normal, no ischemia or petechiae Neurologic: normal mental status, non-focal exam, pupils equal and round, CN II- XII normal Psychiatric: mood appropriate, anxious (less so) CBC and BMP: 10/29/20 05:50 11/01/20 06:27 ABG, PT/INR, D-dimer: ABG ABG pH 7.467 (7.320-7.450) H 10/30/20 16:15 POC ABG pCO2 31.8 mmHg (32.0-48.0) L 10/30/20 16:15 POC ABG pO2 67.8 mmHg (83-108) L 10/30/20 16:15 POC ABG HCO3 22.5 10/30/20 16:15 ABG O2 Saturation 93.1 (0-100) 10/30/20 16:15 PT/INR, D-dimer PT 13.2 Sec. (12.2-14.9) 10/28/20 01:58 INR 1.01 (0.87-1.13) 10/28/20 01:58 D-Dimer 406.47 ng/mlDDU (0-234) H 11/01/20 06:27 Abnormal lab findings: Abnormal Labs 10/28/20 10/28/20 10/28/20 01:58 01:58 01:58 Hgb 15.4 H MCH 33 H MCHC 36 H Lymph % (Auto) Lymph # (Auto) Seg Neutrophils % Seg Neuts % (Manual) 97.0 H Lymphocytes % (Manual) 1.0 L Seg Neutrophils # Man 10.7 H Lymphocytes # (Manual) 0.1 L D-Dimer ABG pH POC ABG pCO2 POC ABG pO2 ABG Oxyhemoglobin ABG Sodium ABG Glucose Sodium 135 L Chloride 96.1 L BUN 8 L Creatinine 0.6 L Glucose 130 H Calcium Ferritin AST 45 H ALT 69 H Alkaline Phosphatase 189 H Lactate Dehydrogenase 339 H C-Reactive Protein 32.80 H NT-Pro-B Natriuret Pep Albumin 3.6 L Arterial Blood Glucose Coronavirus (PCR) 10/28/20 10/28/20 10/28/20 01:58 01:58 13:48 Hgb MCH MCHC Lymph % (Auto) Lymph # (Auto) Seg Neutrophils % Seg Neuts % (Manual) Lymphocytes % (Manual) Seg Neutrophils # Man Lymphocytes # (Manual) D-Dimer ABG pH POC ABG pCO2 POC ABG pO2 ABG Oxyhemoglobin ABG Sodium ABG Glucose Sodium 134 L Chloride 96.2 L BUN Creatinine 0.6 L Glucose 159 H Calcium Ferritin 1631.0 H AST 41 H ALT 59 H Alkaline Phosphatase 187 H Lactate Dehydrogenase C-Reactive Protein NT-Pro-B Natriuret Pep 1661 H Albumin 3.6 L Arterial Blood Glucose Coronavirus (PCR) 10/29/20 10/29/20 10/29/20 05:50 05:50 05:50 Hgb MCH MCHC 36 H Lymph % (Auto) 5.8 L Lymph # (Auto) 0.4 L Seg Neutrophils % 87.8 H Seg Neuts % (Manual) Lymphocytes % (Manual) Seg Neutrophils # Man Lymphocytes # (Manual) D-Dimer ABG pH POC ABG pCO2 POC ABG pO2 ABG Oxyhemoglobin ABG Sodium ABG Glucose Sodium Chloride BUN Creatinine 0.6 L Glucose 143 H Calcium Ferritin AST 59 H ALT 71 H Alkaline Phosphatase 159 H Lactate Dehydrogenase C-Reactive Protein 19.90 H NT-Pro-B Natriuret Pep Albumin 3.0 L Arterial Blood Glucose Coronavirus (PCR) 10/29/20 10/30/20 10/30/20 Unknown 05:46 05:46 Hgb MCH MCHC Lymph % (Auto) Lymph # (Auto) Seg Neutrophils % Seg Neuts % (Manual) Lymphocytes % (Manual) Seg Neutrophils # Man Lymphocytes # (Manual) D-Dimer 347.85 H ABG pH POC ABG pCO2 POC ABG pO2 ABG Oxyhemoglobin ABG Sodium ABG Glucose Sodium Chloride BUN Creatinine 0.6 L Glucose 133 H Calcium 8.3 L Ferritin AST 52 H ALT 82 H Alkaline Phosphatase 144 H Lactate Dehydrogenase C-Reactive Protein NT-Pro-B Natriuret Pep Albumin 3.1 L Arterial Blood Glucose Coronavirus (PCR) Positive A 10/30/20 10/30/20 10/30/20 05:46 05:46 16:15 Hgb MCH MCHC Lymph % (Auto) Lymph # (Auto) Seg Neutrophils % Seg Neuts % (Manual) Lymphocytes % (Manual) Seg Neutrophils # Man Lymphocytes # (Manual) D-Dimer ABG pH 7.467 H POC ABG pCO2 31.8 L POC ABG pO2 67.8 L ABG Oxyhemoglobin 92.3 L ABG Sodium 133.7 L ABG Glucose 145 H Sodium Chloride BUN Creatinine Glucose 133 H Calcium Ferritin 1775.0 H AST ALT Alkaline Phosphatase Lactate Dehydrogenase 302 H C-Reactive Protein NT-Pro-B Natriuret Pep Albumin Arterial Blood Glucose 145 H Coronavirus (PCR) 10/31/20 11/01/20 11/01/20 05:15 06:27 06:27 Hgb MCH MCHC Lymph % (Auto) Lymph # (Auto) Seg Neutrophils % Seg Neuts % (Manual) Lymphocytes % (Manual) Seg Neutrophils # Man Lymphocytes # (Manual) D-Dimer 406.47 H ABG pH POC ABG pCO2 POC ABG pO2 ABG Oxyhemoglobin ABG Sodium ABG Glucose Sodium 136 L Chloride BUN 21 H Creatinine 0.6 L Glucose Calcium 8.0 L Ferritin AST 61 H ALT 147 H Alkaline Phosphatase 148 H Lactate Dehydrogenase 303 H C-Reactive Protein NT-Pro-B Natriuret Pep Albumin 3.2 L Arterial Blood Glucose Coronavirus (PCR) 11/01/20 06:27 Hgb MCH MCHC Lymph % (Auto) Lymph # (Auto) Seg Neutrophils % Seg Neuts % (Manual) Lymphocytes % (Manual) Seg Neutrophils # Man Lymphocytes # (Manual) D-Dimer ABG pH POC ABG pCO2 POC ABG pO2 ABG Oxyhemoglobin ABG Sodium ABG Glucose Sodium Chloride BUN Creatinine Glucose Calcium Ferritin 1667.0 H AST ALT Alkaline Phosphatase Lactate Dehydrogenase C-Reactive Protein NT-Pro-B Natriuret Pep Albumin Arterial Blood Glucose Coronavirus (PCR) Allied health notes reviewed: nursing
--- NOTE | 2020-11-01 16:31 | Progress Note ---
Assessment and Plan Cultures: SARS CoV2 PCR: Indeterminate here, positive as outpatient Blood culture: negative A/P: 44-year-old male with: #Bilateral pneumonia: Secondary to COVID-19. #Acute hypoxic respiratory failure: On HFNC #Transaminitis: Secondary to COVID-19. Stable. Recs: -continue IV/PO Dexamethasone x 10 days -Procalcitonin was 1.74, continue empiric antibiotics x total 5 days -continue IV remdesivir, D5 of 5 -prophylactic anticoagulation based on d-dimer per hospital protocol -trend ferritin, LDH, d-dimer, CRP every 2-3 days for risk stratification and to assess disease progression Medhat Holland MD [facility] ([facility]) O: [phone] F: [phone] Subjective Date of service: 11/01/20 Principal diagnosis: Acute hypoxemic resp failure; COVID-19; Pneumonia; Trans aminitis; Anxiety Interval history: Afebrile, normal white count. On high flow nasal cannula. Objective - Exam Narrative Exam: Physical exam deferred to reduce risk of transmission of COVID-19. Please refer to primary team's note. - Constitutional Vitals: Vital Signs Temp Pulse Resp BP Pulse Ox 97.9 F 85 16 119/73 95 11/01/20 12:26 11/01/20 12:29 11/01/20 12:26 11/01/20 12:26 11/01/20 08:05 Temperature -Last 24 Hours Temperature 97.9 F Temperature 98.0 F Temperature 97.9 F Temperature 97.9 F - Labs CBC & Chem 7: 10/29/20 05:50 11/01/20 06:27 Labs: Abnormal lab results 11/01/20 11/01/20 11/01/20 Range/Units 06:27 06:27 06:27 D-Dimer 406.47 H (0-234) ng/mlDDU Ferritin 1667.0 H (30.0-300.0) ng/mL Lactate Dehydrogenase 303 H (91-180) units/L
[2020-11-01] MEDS: REMDESIVIR 100 MG in SODIUM CHLORIDE 0.9% 250ML 250 ML IV SCH (21:30)
[2020-11-01] MEDS: SODIUM CHLORIDE 0.9% 50 ML IVPB IV SCH (21:30)
[2020-11-02] MEDS: HYDROcodone/HOMATROPINE 5-1.5MG /5 ML ORAL LIQD UNIT DOSE PO PRN (01:55)
[2020-11-02] MEDS: HEPARIN 5,000 UNIT/1 ML VIAL SUB-Q SCH ×3 (05:14→22:11)
[2020-11-02] MEDS: ACETAMINOPHEN 325 MG TAB PO PRN ×2 (09:34→20:48)
[2020-11-02] MEDS: ZINC SULFATE 220 MG CAP PO SCH (09:35)
[2020-11-02] MEDS: DEXAMETHASONE 2 MG TAB PO SCH (09:35)
[2020-11-02] MEDS: ASPIRIN 81 MG TAB CHEW PO SCH (09:36)
[2020-11-02] MEDS: CHOLECALCIFEROL (VIT D3) 5,000 UNIT TAB PO SCH (09:36)
[2020-11-02] MEDS: ASCORBIC ACID 500 MG TAB PO SCH ×2 (09:36→22:11)
[2020-11-02] MEDS: METOPROLOL TARTRATE 25 MG TAB PO SCH ×2 (09:37→22:11)
[2020-11-02] MEDS: PANTOPRAZOLE 40 MG TAB PO SCH (09:38)
--- NOTE | 2020-11-02 09:45 | Progress Note ---
Assessment and Plan Assessment and plan: 44-year-old gentleman with no significant past medical history was brought to the emergency room because of shortness of breath coughing and chest tightness . Patient was diagnosed with Covid around 7 to 8 days ago. He is brought to the hospital by emergency medical services with a complaint of chest tightness, cough, shortness of breath, malaise and fatigue. In the emergency room patient is found to have acute hypoxic respiratory failure and Covid pneumonia On discussion patient spouse also was diagnosed with COVID-19 but with a more mild disease. There were plan to get the vaccine but got diagnosed with the disease prior. Sepsis secondary to COVID19 Bilateral Pneumonia COVID19 Transaminitis Persistent Cough Anxiety Plan Continue supportive care, patient continues on high flow Oxygen now at 35 l/min. He still has shortness of breath Continue dexamethasone 6 mg to complete 10 days. Remdesivir discontinued due to transaminitis being elevated Pulmonary consulted and input noted. ID input is appreciated. D-dimer [id number] Blood cultures done 10/28/20, pending Started antitussives medication for cough Encourage prone positioning as tolerated Continue to monitor inflammatory markers DVT and GI prophylaxis Plan of care discussed with the patient and spouse in detail. 10/31/20 patient had chest pain last night, now resolved. Still complain of shortness of breath. No more fever. He also complain of insomnia and requesting sleep aid. he is still on HFNC at 35 l/min. Will repeat CXR today to re-evaluate Covid-19 pneumonia. I discussed plan with patient and on phone. 11/01 Patient with acute respiratory failure due to Covid-19 pneumonia. Still has shortness of breath so Oxygen increased to 40 l/min yesterday. CXR done yesterday was unchanged showing bilateral pneumonia. Pulmonology following. I discussed management plan with on the phone. 11/02 Patient with acute respiratory failure due to Covid-19 pneumonia. Still has shortness of breath. He was started on BIP yesterday but has not been tolerating it. He used BIPAP only few hours. I discussed with Nurse to inform Outside Medical Sales Representative. I discussed with on phone. The high probability of a clinically significant, sudden or life threatening deterioration of the [pulmonary] system(s) required my full and direct attenti on, intervention and personal management. The aggregate critical care time was [35] minutes. This time is in addition to time spent performing reported procedures but includes the following: [x] Data Review and interpretation [x] Patient assessment and monitoring of vital signs [x] Documentation [x] Medication orders and management History Interval history: still has shortness of breath. Was started on BIPAP yesterday but only used for few hours. He is not tolerating Currently on Oxygen at 40 l/min HFNC Still coughing Fever of 100.1 on 10/28 No more fever sleeplessness Hospitalist Physical - Physical exam Narrative exam: Gen: Not in acute distress, lying in bed, On Oxygen by HFNC at 40 l/min Neck:supple, no JVD Lungs: bilateral crackles, no wheeze heart:S1 and S2 reg, no murmurs, rubs or gallop Abdomen:soft, NT, non distended, normal bowel sounds Ext:No edema, no clubbing, no cyanosis Neuro:Awake,alert, oriented X 3. No focal signs Psych:calm. co-operative, calm - Constitutional Vitals: Temp Pulse Resp BP Pulse Ox 98.2 F 105 H 20 125/81 94 11/02/20 04:21 11/02/20 09:37 11/02/20 04:21 11/02/20 09:37 11/02/20 07:45 HEART Score - HEART Score Troponin: Troponin T < 0.010 ng/mL (0.00-0.029) 10/31/20 17:45 Results - Labs CBC & Chem 7: 10/29/20 05:50 11/01/20 06:27 Labs: Laboratory Last Values WBC 7.2 K/mm3 (4.5-11.0) 10/29/20 05:50 RBC 4.51 M/mm3 (3.65-5.03) 10/29/20 05:50 Hgb 14.5 gm/dl (11.8-15.2) 10/29/20 05:50 Hct 40.8 % (35.5-45.6) 10/29/20 05:50 MCV 91 fl (84-94) 10/29/20 05:50 MCH 32 pg (28-32) 10/29/20 05:50 MCHC 36 % (32-34) H 10/29/20 05:50 RDW 13.6 % (13.2-15.2) 10/29/20 05:50 Plt Count 330 K/mm3 (140-440) 10/29/20 05:50 Lymph % (Auto) 5.8 % (13.4-35.0) L 10/29/20 05:50 Cole % (Auto) 6.3 % (0.0-7.3) 10/29/20 05:50 Eos % (Auto) 0.0 % (0.0-4.3) 10/29/20 05:50 Baso % (Auto) 0.1 % (0.0-1.8) 10/29/20 05:50 Lymph # (Auto) 0.4 K/mm3 (1.2-5.4) L 10/29/20 05:50 Cole # (Auto) 0.5 K/mm3 (0.0-0.8) 10/29/20 05:50 Eos # (Auto) 0.0 K/mm3 (0.0-0.4) 10/29/20 05:50 Baso # (Auto) 0.0 K/mm3 (0.0-0.1) 10/29/20 05:50 Add Manual Diff Complete 10/28/20 01:58 Total Counted 100 10/28/20 01:58 Seg Neutrophils % 87.8 % (40.0-70.0) H 10/29/20 05:50 Seg Neuts % (Manual) 97.0 % (40.0-70.0) H 10/28/20 01:58 Lymphocytes % (Manual) 1.0 % (13.4-35.0) L 10/28/20 01:58 Monocytes % (Manual) 2.0 % (0.0-7.3) 10/28/20 01:58 Nucleated RBC % Not Reportable 10/28/20 01:58 Seg Neutrophils # 6.4 K/mm3 (1.8-7.7) 10/29/20 05:50 Seg Neutrophils # Man 10.7 K/mm3 (1.8-7.7) H 10/28/20 01:58 Band Neutrophils # 0.0 K/mm3 10/28/20 01:58 Lymphocytes # (Manual) 0.1 K/mm3 (1.2-5.4) L 10/28/20 01:58 Abs React Lymphs (Man) 0.0 K/mm3 10/28/20 01:58 Monocytes # (Manual) 0.2 K/mm3 (0.0-0.8) 10/28/20 01:58 Eosinophils # (Manual) 0.0 K/mm3 (0.0-0.4) 10/28/20 01:58 Basophils # (Manual) 0.0 K/mm3 (0.0-0.1) 10/28/20 01:58 Metamyelocytes # 0.0 K/mm3 10/28/20 01:58 Myelocytes # 0.0 K/mm3 10/28/20 01:58 Promyelocytes # 0.0 K/mm3 10/28/20 01:58 Blast Cells # 0.0 K/mm3 10/28/20 01:58 WBC Morphology Not Reportable 10/28/20 01:58 Hypersegmented Neuts Not Reportable 10/28/20 01:58 Hyposegmented Neuts Not Reportable 10/28/20 01:58 Hypogranular Neuts Not Reportable 10/28/20 01:58 Smudge Cells Not Reportable 10/28/20 01:58 Toxic Granulation Not Reportable 10/28/20 01:58 Toxic Vacuolation Not Reportable 10/28/20 01:58 Dohle Bodies Not Reportable 10/28/20 01:58 Pelger-Huet Anomaly Not Reportable 10/28/20 01:58 Trye Rods Not Reportable 10/28/20 01:58 Platelet Estimate Consistent w auto 10/28/20 01:58 Clumped Platelets Not Reportable 10/28/20 01:58 Plt Clumps, EDTA Not Reportable 10/28/20 01:58 Large Platelets Not Reportable 10/28/20 01:58 Giant Platelets Not Reportable 10/28/20 01:58 Platelet Satelliting Not Reportable 10/28/20 01:58 Plt Morphology Comment Not Reportable 10/28/20 01:58 RBC Morphology Normal 10/28/20 01:58 Dimorphic RBCs Not Reportable 10/28/20 01:58 Polychromasia Not Reportable 10/28/20 01:58 Hypochromasia Not Reportable 10/28/20 01:58 Poikilocytosis Not Reportable 10/28/20 01:58 Anisocytosis Not Reportable 10/28/20 01:58 Microcytosis Not Reportable 10/28/20 01:58 Macrocytosis Not Reportable 10/28/20 01:58 Spherocytes Not Reportable 10/28/20 01:58 Pappenheimer Bodies Not Reportable 10/28/20 01:58 Sickle Cells Not Reportable 10/28/20 01:58 Target Cells Not Reportable 10/28/20 01:58 Tear Drop Cells Not Reportable 10/28/20 01:58 Ovalocytes Not Reportable 10/28/20 01:58 Helmet Cells Not Reportable 10/28/20 01:58 [place] Bodies Not Reportable 10/28/20 01:58 Hailey Rings Not Reportable 10/28/20 01:58 Phoenix Cells Not Reportable 10/28/20 01:58 Bite Cells Not Reportable 10/28/20 01:58 Crenated Cell Not Reportable 10/28/20 01:58 Elliptocytes Not Reportable 10/28/20 01:58 Acanthocytes (Spur) Not Reportable 10/28/20 01:58 Rouleaux Not Reportable 10/28/20 01:58 Hemoglobin C Crystals Not Reportable 10/28/20 01:58 Schistocytes Not Reportable 10/28/20 01:58 Malaria parasites Not Reportable 10/28/20 01:58 Froylan Bodies Not Reportable 10/28/20 01:58 Hem Pathologist Commnt No 10/28/20 01:58 PT 13.2 Sec. (12.2-14.9) 10/28/20 01:58 INR 1.01 (0.87-1.13) 10/28/20 01:58 D-Dimer 406.47 ng/mlDDU (0-234) H 11/01/20 06:27 ABG pH 7.467 (7.320-7.450) H 10/30/20 16:15 POC ABG pCO2 31.8 mmHg (32.0-48.0) L 10/30/20 16:15 POC ABG pO2 67.8 mmHg (83-108) L 10/30/20 16:15 POC ABG HCO3 22.5 10/30/20 16:15 ABG O2 Saturation 93.1 (0-100) 10/30/20 16:15 POC ABG Base Excess -0.3 10/30/20 16:15 ABG Hemoglobin 15.2 (12.0-17.5) 10/30/20 16:15 ABG Oxyhemoglobin 92.3 (94-98) L 10/30/20 16:15 ABG Methemoglobin 0.3 (0.0-1.5) 10/30/20 16:15 ABG Sodium 133.7 mmol/L (136.0-145.0) L 10/30/20 16:15 ABG Potassium 3.9 mmol/L (3.40-4.50) 10/30/20 16:15 ABG Chloride 100.0 mmol/L (98-107) 10/30/20 16:15 ABG Glucose 145 mg/dL (65-95) H 10/30/20 16:15 Carboxyhemoglobin 0.6 (0.5-1.5) 10/30/20 16:15 FiO2 % 65 10/30/20 16:15 Sodium 136 mmol/L (137-145) L 10/31/20 05:15 Potassium 3.6 mmol/L (3.6-5.0) 10/31/20 05:15 Chloride 98.5 mmol/L (98-107) 10/31/20 05:15 Carbon Dioxide 25 mmol/L (22-30) 10/31/20 05:15 Anion Gap 16 mmol/L 10/31/20 05:15 BUN 21 mg/dL (9-20) H 10/31/20 05:15 Creatinine 0.6 mg/dL (0.8-1.3) L 10/31/20 05:15 Estimated GFR > 60 ml/min 10/31/20 05:15 BUN/Creatinine Ratio 35 % 10/31/20 05:15 Glucose 81 mg/dL (75-100) 11/01/20 06:27 Lactic Acid 1.40 mmol/L (0.7-2.0) 10/28/20 01:58 Calcium 8.0 mg/dL (8.4-10.2) L 10/31/20 05:15 Magnesium 2.20 mg/dL (1.7-2.3) 10/28/20 01:58 Ferritin 1667.0 ng/mL (30.0-300.0) H 11/01/20 06:27 Total Bilirubin 0.30 mg/dL (0.1-1.2) 10/31/20 05:15 AST 61 units/L (5-40) H 10/31/20 05:15 ALT 147 units/L (7-56) H 10/31/20 05:15 Alkaline Phosphatase 148 units/L (35-129) H 10/31/20 05:15 Lactate Dehydrogenase 303 units/L (91-180) H 11/01/20 06:27 Troponin T < 0.010 ng/mL (0.00-0.029) 10/31/20 17:45 C-Reactive Protein 19.90 mg/dL (0.00-1.30) H 10/29/20 05:50 NT-Pro-B Natriuret Pep 1661 pg/mL (0-450) H 10/28/20 01:58 Total Protein 6.4 g/dL (6.3-8.2) 10/31/20 05:15 Albumin 3.2 g/dL (3.9-5) L 10/31/20 05:15 Albumin/Globulin Ratio 1.0 % 10/31/20 05:15 Procalcitonin 1.74 ng/mL (<0.15) 10/28/20 01:58 Arterial Blood Glucose 145 mg/dL (65-95) H 10/30/20 16:15 Arterial Blood Ionized Calcium 4.6 mg/dL (4.6-5.3) 10/30/20 16:15 Coronavirus (PCR) Positive (Negative) A 10/29/20 Unknown Microbiology: Microbiology 10/28/20 01:58 Peripheral/Venous Blood Culture - Final NO GROWTH AFTER 5 DAYS 10/28/20 01:51 Peripheral/Venous Blood Culture - Final NO GROWTH AFTER 5 DAYS Nava/IV: Voiding Method Urinal Active Medications - Current Medications Current Medications: Generic Name Dose Route Start Last Admin Trade Name Freq PRN Reason Stop Dose Admin Acetaminophen 650 mg 10/28/20 03:35 11/02/20 09:34 Acetaminophen 325 Mg Tab PO 650 mg Q4H PRN Administration Pain MILD(1-3)/Fever >100.5/RIVERA Albuterol 2.5 mg 10/29/20 09:26 Albuterol 2.5 Mg/3 Ml Nebu IH Q4HRT PRN Shortness Of Breath Ascorbic Acid 1,000 mg 10/28/20 11:00 11/02/20 09:36 Ascorbic Acid 500 Mg Tab PO 1,000 mg BID TERI Administration Aspirin 81 mg 11/01/20 10:00 11/02/20 09:36 Aspirin 81 Mg Tab Chew PO 81 mg QDAY TERI Administration Cholecalciferol 5,000 unit 10/28/20 11:00 11/02/20 09:36 Cholecalciferol (Vit D3) 5,000 Unit Tab PO 5,000 unit DAILY TERI Administration Dexamethasone 6 mg 10/30/20 10:00 11/02/20 09:35 Dexamethasone 2 Mg Tab PO 11/06/20 10:01 6 mg DAILY TERI Administration Guaifenesin 10 ml 10/29/20 10:26 Guaifenesin Dm 200/20 Mg Oral Liqd 10 Ml PO Q4H PRN Cough Heparin Sodium (Porcine) 5,000 unit 10/28/20 06:00 11/02/20 05:14 Heparin 5,000 Unit/1 Ml Vial SUB-Q 5,000 unit Q8HR TERI Administration Hydralazine HCl 10 mg 10/28/20 03:36 Hydralazine 20 Mg/1 Ml Inj IV Q6H PRN htn Hydrocodone Bit/Homatropine Methylb 10 ml 10/29/20 10:25 11/02/20 01:55 Hydrocodone/Homatropine 5-1.5mg /5 Ml Oral Liqd Unit Dose PO 10 ml Q6H PRN Administration Cough Metoprolol Tartrate 12.5 mg 10/31/20 22:00 11/02/20 09:37 Metoprolol Tartrate 25 Mg Tab PO 12.5 mg BID TERI Administration Ondansetron HCl 4 mg 10/28/20 03:35 Ondansetron 4 Mg/2 Ml Inj IV Q8H PRN Nausea And Vomiting Pantoprazole Sodium 40 mg 10/28/20 07:30 11/02/20 09:38 Pantoprazole 40 Mg Tab PO 40 mg QDAC TERI Administration Sodium Chloride 10 ml 10/28/20 10:00 11/02/20 09:36 Sodium Chloride 0.9% 10 Ml Flush Syringe IV 10 ml BID TERI Administration Sodium Chloride 10 ml 10/28/20 03:35 Sodium Chloride 0.9% 10 Ml Flush Syringe IV PRN PRN LINE FLUSH Zinc Sulfate 220 mg 10/28/20 11:00 11/02/20 09:35 Zinc Sulfate 220 Mg Cap PO 220 mg QDAY TERI Administration
--- NOTE | 2020-11-02 15:03 | Progress Note ---
Assessment and Plan Acute respiratory failure with hypoxia COVID-19 Pneumonia due to COVID-19 virus Transaminitis Anxiety - continue NIV qhs - continue care as below otherwise; - continue Remdesivir as per ID/Pulmonary developed protocols - continue systemic steroids for severe COVID-19 infection - follow repeat COVID tests results - zinc and vitamin C supplementation - Monitor inflammatory markers per facility protocol - ferritin, Ddimer, CRP - therapeutic anticoagulation per system Protocol based on d-dimer and clinical considerations (VTE prophylaxis now) - Continue contact and airborne isolation - continue to wean supplemental oxygen to keep O2 sats > 92% - continue Bronchodilators (ETELVINA) with pulm hygiene per RT - continue to avoid nephrotoxins, renally dose all medications - continue mobility protocols to prevent pressure ulcers - PT/OT as tolerated - Wound care per RN/WCT - continue accuchecks with glycemic control per SSI for target blood glucose < 180 mg/dL - tobacco abstinence strongly counseled at the bedside - home oxygen evaluation at discharge - GI & VTE prophylaxis - Flu & pneumovax per protocol - Pulmonary out patient follow up for PFTs and optimization of respiratory status - aspiration precautions - complete empiric AB's per ID rec's - prn analgesia per pain score - Maintenance of sleep-wake cycle, avoid delirium - Monitor hemodynamics closely - continue other care per attending / other consultants - discharge planning ongoing concurrently .... Re-evaluate in am & prn CONDITION: CRITICAL PROGNOSIS: GUARDED CODE STATUS: FULL CODE The high probability of a clinically significant, sudden or life-threatening deterioration of the [respiratory, cardiovascular, hematologic & neurologic] system(s) required my full and direct attention, intervention and personal manag ement. The aggregate critical care time was [32] minutes without overlap. Time includes spent on; [x] Data Review and interpretation [x] Patient assessment and monitoring of vital signs [x] Documentation [x] Medication orders and management Subjective Date of service: 11/02/20 Principal diagnosis: Acute hypoxemic resp failure; COVID-19; Pneumonia; Transaminitis; Anxiety Interval history: Patient is seen today for: Acute hypoxemic respiratory failure; COVID-19; Pneumonia; Transaminitis; Anxiety Seen and examined at bedside; 24hour events reviewed; nursing and respiratory care staff consulted; no adverse overnight events reported to me; resting in bed; no N/V/F/C; feels about the same Objective Vital Signs - 12hr 11/02/20 11/02/20 11/02/20 04:21 07:45 09:37 Temperature 98.2 F Pulse Rate 87 105 H Respiratory 20 Rate Blood Pressure 108/70 125/81 O2 Sat by Pulse 96 94 Oximetry 11/02/20 11/02/20 14:05 14:20 Temperature Pulse Rate Respiratory Rate Blood Pressure O2 Sat by Pulse 99 96 Oximetry Constitutional: alert, other (middle aged male with mildfly increase respiratory effort at rest) Eyes: non-icteric ENT: oropharynx moist Neck: supple, no lymphadenopathy, no JVD Effort: mildly labored Ascultation: Bilateral: rales (bases; inspiratory) Percussion: Bilateral: not dull Cardiovascular: regular rate and rhythm Gastrointestinal: normoactive bowel sounds, soft, non-tender, non-distended Integumentary: normal Extremities: no cyanosis, no edema, pulses normal, no ischemia or petechiae Neurologic: normal mental status, non-focal exam, pupils equal and round, CN II- XII normal Psychiatric: mood appropriate, anxious (less so) CBC and BMP: 11/03/20 05:14 11/06/20 06:51 ABG, PT/INR, D-dimer: ABG ABG pH 7.467 (7.320-7.450) H 10/30/20 16:15 POC ABG pCO2 31.8 mmHg (32.0-48.0) L 10/30/20 16:15 POC ABG pO2 67.8 mmHg (83-108) L 10/30/20 16:15 POC ABG HCO3 22.5 10/30/20 16:15 ABG O2 Saturation 93.1 (0-100) 10/30/20 16:15 PT/INR, D-dimer PT 13.2 Sec. (12.2-14.9) 10/28/20 01:58 INR 1.01 (0.87-1.13) 10/28/20 01:58 D-Dimer 406.47 ng/mlDDU (0-234) H 11/01/20 06:27 Abnormal lab findings: Abnormal Labs 10/28/20 10/28/20 10/28/20 01:58 01:58 01:58 Hgb 15.4 H MCH 33 H MCHC 36 H Lymph % (Auto) Lymph # (Auto) Seg Neutrophils % Seg Neuts % (Manual) 97.0 H Lymphocytes % (Manual) 1.0 L Seg Neutrophils # Man 10.7 H Lymphocytes # (Manual) 0.1 L D-Dimer ABG pH POC ABG pCO2 POC ABG pO2 ABG Oxyhemoglobin ABG Sodium ABG Glucose Sodium 135 L Chloride 96.1 L BUN 8 L Creatinine 0.6 L Glucose 130 H Calcium Ferritin AST 45 H ALT 69 H Alkaline Phosphatase 189 H Lactate Dehydrogenase 339 H C-Reactive Protein 32.80 H NT-Pro-B Natriuret Pep Albumin 3.6 L Arterial Blood Glucose Coronavirus (PCR) 10/28/20 10/28/20 10/28/20 01:58 01:58 13:48 Hgb MCH MCHC Lymph % (Auto) Lymph # (Auto) Seg Neutrophils % Seg Neuts % (Manual) Lymphocytes % (Manual) Seg Neutrophils # Man Lymphocytes # (Manual) D-Dimer ABG pH POC ABG pCO2 POC ABG pO2 ABG Oxyhemoglobin ABG Sodium ABG Glucose Sodium 134 L Chloride 96.2 L BUN Creatinine 0.6 L Glucose 159 H Calcium Ferritin 1631.0 H AST 41 H ALT 59 H Alkaline Phosphatase 187 H Lactate Dehydrogenase C-Reactive Protein NT-Pro-B Natriuret Pep 1661 H Albumin 3.6 L Arterial Blood Glucose Coronavirus (PCR) 10/29/20 10/29/20 10/29/20 05:50 05:50 05:50 Hgb MCH MCHC 36 H Lymph % (Auto) 5.8 L Lymph # (Auto) 0.4 L Seg Neutrophils % 87.8 H Seg Neuts % (Manual) Lymphocytes % (Manual) Seg Neutrophils # Man Lymphocytes # (Manual) D-Dimer ABG pH POC ABG pCO2 POC ABG pO2 ABG Oxyhemoglobin ABG Sodium ABG Glucose Sodium Chloride BUN Creatinine 0.6 L Glucose 143 H Calcium Ferritin AST 59 H ALT 71 H Alkaline Phosphatase 159 H Lactate Dehydrogenase C-Reactive Protein 19.90 H NT-Pro-B Natriuret Pep Albumin 3.0 L Arterial Blood Glucose Coronavirus (PCR) 10/29/20 10/30/20 10/30/20 Unknown 05:46 05:46 Hgb MCH MCHC Lymph % (Auto) Lymph # (Auto) Seg Neutrophils % Seg Neuts % (Manual) Lymphocytes % (Manual) Seg Neutrophils # Man Lymphocytes # (Manual) D-Dimer 347.85 H ABG pH POC ABG pCO2 POC ABG pO2 ABG Oxyhemoglobin ABG Sodium ABG Glucose Sodium Chloride BUN Creatinine 0.6 L Glucose 133 H Calcium 8.3 L Ferritin AST 52 H ALT 82 H Alkaline Phosphatase 144 H Lactate Dehydrogenase C-Reactive Protein NT-Pro-B Natriuret Pep Albumin 3.1 L Arterial Blood Glucose Coronavirus (PCR) Positive A 10/30/20 10/30/20 10/30/20 05:46 05:46 16:15 Hgb MCH MCHC Lymph % (Auto) Lymph # (Auto) Seg Neutrophils % Seg Neuts % (Manual) Lymphocytes % (Manual) Seg Neutrophils # Man Lymphocytes # (Manual) D-Dimer ABG pH 7.467 H POC ABG pCO2 31.8 L POC ABG pO2 67.8 L ABG Oxyhemoglobin 92.3 L ABG Sodium 133.7 L ABG Glucose 145 H Sodium Chloride BUN Creatinine Glucose 133 H Calcium Ferritin 1775.0 H AST ALT Alkaline Phosphatase Lactate Dehydrogenase 302 H C-Reactive Protein NT-Pro-B Natriuret Pep Albumin Arterial Blood Glucose 145 H Coronavirus (PCR) 10/31/20 11/01/20 11/01/20 05:15 06:27 06:27 Hgb MCH MCHC Lymph % (Auto) Lymph # (Auto) Seg Neutrophils % Seg Neuts % (Manual) Lymphocytes % (Manual) Seg Neutrophils # Man Lymphocytes # (Manual) D-Dimer 406.47 H ABG pH POC ABG pCO2 POC ABG pO2 ABG Oxyhemoglobin ABG Sodium ABG Glucose Sodium 136 L Chloride BUN 21 H Creatinine 0.6 L Glucose Calcium 8.0 L Ferritin AST 61 H ALT 147 H Alkaline Phosphatase 148 H Lactate Dehydrogenase 303 H C-Reactive Protein NT-Pro-B Natriuret Pep Albumin 3.2 L Arterial Blood Glucose Coronavirus (PCR) 11/01/20 06:27 Hgb MCH MCHC Lymph % (Auto) Lymph # (Auto) Seg Neutrophils % Seg Neuts % (Manual) Lymphocytes % (Manual) Seg Neutrophils # Man Lymphocytes # (Manual) D-Dimer ABG pH POC ABG pCO2 POC ABG pO2 ABG Oxyhemoglobin ABG Sodium ABG Glucose Sodium Chloride BUN Creatinine Glucose Calcium Ferritin 1667.0 H AST ALT Alkaline Phosphatase Lactate Dehydrogenase C-Reactive Protein NT-Pro-B Natriuret Pep Albumin Arterial Blood Glucose Coronavirus (PCR) Allied health notes reviewed: nursing
[2020-11-03 05:50] LABS: Mean Corpuscular HGB Conc 36 % (32-34); Mean Corpuscular Volume 90 fl (84-94); Platelet Count 648 K/mm3 (140-440); Red Blood Count 4.83 M/mm3 (3.65-5.03); Red Cell Distribution Width 13.4 % (13.2-15.2)
[2020-11-03 05:51] LABS: Hematocrit 43.7 % (35.5-45.6); Hemoglobin 15.8 gm/dl (11.8-15.2)
[2020-11-03 06:16] LABS: Blood Urea Nitrogen 16 mg/dL (9-20); Calcium 9.2 mg/dL (8.4-10.2); Hemolysis Index 0
[2020-11-03 06:18] LABS: BUN/Creatinine Ratio 40
[2020-11-03] MEDS: HEPARIN 5,000 UNIT/1 ML VIAL SUB-Q SCH ×3 (06:31→22:17)
[2020-11-03] MEDS: PANTOPRAZOLE 40 MG TAB PO SCH (07:46)
[2020-11-03] MEDS: ASPIRIN 81 MG TAB CHEW PO SCH (10:04)
[2020-11-03] MEDS: METOPROLOL TARTRATE 25 MG TAB PO SCH ×2 (10:04→22:17)
[2020-11-03] MEDS: ZINC SULFATE 220 MG CAP PO SCH (10:04)
[2020-11-03] MEDS: DEXAMETHASONE 2 MG TAB PO SCH (10:05)
[2020-11-03] MEDS: ASCORBIC ACID 500 MG TAB PO SCH ×2 (10:05→22:16)
[2020-11-03] MEDS: CHOLECALCIFEROL (VIT D3) 5,000 UNIT TAB PO SCH (10:05)
--- NOTE | 2020-11-03 12:49 | Progress Note ---
Assessment and Plan Cultures: SARS CoV2 PCR: Indeterminate here, positive as outpatient Blood culture: negative A/P: 44-year-old male with: #Bilateral pneumonia: Secondary to COVID-19. #Acute hypoxic respiratory failure: On HFNC #Transaminitis: Secondary to COVID-19. Stable. Recs: -continue IV/PO Dexamethasone x 10 days -Completed empiric antibiotics. -Completed remdesivir. -prophylactic anticoagulation based on d-dimer per hospital protocol -trend ferritin, LDH, d-dimer, CRP every 2-3 days for risk stratification and to assess disease progression Medhat Holland MD [facility] O: [phone] F: [phone] Subjective Date of service: 11/03/20 Principal diagnosis: Acute hypoxemic resp failure; COVID-19; Pneumonia; Transaminitis; Anxiety Interval history: Afebrile, normal white count. Remains on high flow nasal cannula. Objective - Exam Narrative Exam: Physical exam deferred to reduce risk of transmission of COVID-19. Please refer to primary team's note. - Constitutional Vitals: Vital Signs Temp Pulse Resp BP Pulse Ox 97.5 F L 86 20 121/86 91 11/03/20 04:06 11/03/20 06:33 11/03/20 07:50 11/03/20 04:06 11/03/20 11:14 Temperature -Last 24 Hours Temperature 97.5 F Temperature 97.6 F - Labs CBC & Chem 7: 11/03/20 05:14 11/03/20 05:14 Labs: Abnormal lab results 11/03/20 11/03/20 11/03/20 Range/Units 05:14 05:14 05:14 Hgb (11.8-15.2) gm/dl MCH (28-32) pg MCHC (32-34) % Plt Count (140-440) K/mm3 D-Dimer 496.75 H (0-234) ng/mlDDU Sodium 134 L (137-145) mmol/L Chloride 96.3 L (98-107) mmol/L Creatinine 0.4 L (0.8-1.3) mg/dL Glucose 110 H (75-100) mg/dL Ferritin 1631.0 H (30.0-300.0) ng/mL Lactate Dehydrogenase 404 H (91-180) units/L 11/03/20 Range/Units 05:14 Hgb 15.8 H (11.8-15.2) gm/dl MCH 33 H (28-32) pg MCHC 36 H (32-34) % Plt Count 648 H (140-440) K/mm3 D-Dimer (0-234) ng/mlDDU Sodium (137-145) mmol/L Chloride (98-107) mmol/L Creatinine (0.8-1.3) mg/dL Glucose (75-100) mg/dL Ferritin (30.0-300.0) ng/mL Lactate Dehydrogenase (91-180) units/L
--- NOTE | 2020-11-03 13:15 | Progress Note ---
Assessment and Plan Assessment and plan: 44-year-old gentleman with no significant past medical history was brought to the emergency room because of shortness of breath coughing and chest tightness . Patient was diagnosed with Covid around 7 to 8 days ago. He is brought to the hospital by emergency medical services with a complaint of chest tightness, cough, shortness of breath, malaise and fatigue. In the emergency room patient is found to have acute hypoxic respiratory failure and Covid pneumonia On discussion patient spouse also was diagnosed with COVID-19 but with a more mild disease. There were plan to get the vaccine but got diagnosed with the disease prior. Sepsis secondary to COVID19 Bilateral Pneumonia COVID19 Transaminitis Persistent Cough Anxiety Plan Continue supportive care, patient continues on high flow Oxygen now at 35 l/min. He still has shortness of breath Continue dexamethasone 6 mg to complete 10 days. Remdesivir discontinued due to transaminitis being elevated Pulmonary consulted and input noted. ID input is appreciated. D-dimer 347.85 Blood cultures done 10/28/20, pending Started antitussives medication for cough Encourage prone positioning as tolerated Continue to monitor inflammatory markers DVT and GI prophylaxis Plan of care discussed with the patient and spouse in detail. 10/31/20 patient had chest pain last night, now resolved. Still complain of shortness of breath. No more fever. He also complain of insomnia and requesting sleep aid. he is still on HFNC at 35 l/min. Will repeat CXR today to re-evaluate Covid-19 pneumonia. I discussed plan with patient and on phone. 11/01 Patient with acute respiratory failure due to Covid-19 pneumonia. Still has shortness of breath so Oxygen increased to 40 l/min yesterday. CXR done yesterday was unchanged showing bilateral pneumonia. Pulmonology following. I discussed management plan with on the phone. 11/02 Patient with acute respiratory failure due to Covid-19 pneumonia. Still has shortness of breath. He was started on BIPAP yesterday but has not been tolerating it. He used BIPAP only few hours. I discussed with Nurse to inform Thermodynamics Engineer. I discussed with on phone. 11/03 Patient with acute respiratory failure due to Covid-19 pneumonia. Still has shortness of breath. He was started on BIPAP on 11/01 but has not been tolerating it. He used BIPAP only few hours. I discussed with Nurse to inform Thermodynamics Engineer. I discussed with on phone. Today. still has shortness of breath. Asking for soft diet and to sit in chair. Will repeat CXR in am The high probability of a clinically significant, sudden or life threatening deterioration of the [pulmonary] system(s) required my full and direct attention, intervention and personal management. The aggregate critical care time was [33] minutes. This time is in addition to time spent performing reported procedures but includes the following: [x] Data Review and interpretation [x] Patient assessment and monitoring of vital signs [x] Documentation [x] Medication orders and management History Interval history: still has shortness of breath. Was started on BIPAP but only used for few hours. He is not tolerating Currently on Oxygen at 40 l/min HFNC Still coughing No more fever sleeplessness asking for soft diet Hospitalist Physical - Physical exam Narrative exam: Gen: Not in acute distress, lying in bed, On Oxygen by HFNC at 40 l/min Neck:supple, no JVD Lungs: bilateral crackles, no wheeze heart:S1 and S2 reg, no murmurs, rubs or gallop Abdomen:soft, NT, non distended, normal bowel sounds Ext:No edema, no clubbing, no cyanosis Neuro:Awake,alert, oriented X 3. No focal signs Psych:calm. co-operative, calm - Constitutional Vitals: Temp Pulse Resp BP Pulse Ox 97.5 F L 86 20 121/86 91 11/03/20 04:06 11/03/20 06:33 11/03/20 07:50 11/03/20 04:06 11/03/20 11:14 General appearance: Present: well-nourished HEART Score - HEART Score Troponin: Troponin T < 0.010 ng/mL (0.00-0.029) 10/31/20 17:45 Results - Labs CBC & Chem 7: 11/03/20 05:14 11/03/20 05:14 Labs: Laboratory Last Values WBC 8.9 K/mm3 (4.5-11.0) 11/03/20 05:14 RBC 4.83 M/mm3 (3.65-5.03) 11/03/20 05:14 Hgb 15.8 gm/dl (11.8-15.2) H 11/03/20 05:14 Hct 43.7 % (35.5-45.6) 11/03/20 05:14 MCV 90 fl (84-94) 11/03/20 05:14 MCH 33 pg (28-32) H 11/03/20 05:14 MCHC 36 % (32-34) H 11/03/20 05:14 RDW 13.4 % (13.2-15.2) 11/03/20 05:14 Plt Count 648 K/mm3 (140-440) H 11/03/20 05:14 Lymph % (Auto) 5.8 % (13.4-35.0) L 10/29/20 05:50 Ward % (Auto) 6.3 % (0.0-7.3) 10/29/20 05:50 Eos % (Auto) 0.0 % (0.0-4.3) 10/29/20 05:50 Baso % (Auto) 0.1 % (0.0-1.8) 10/29/20 05:50 Lymph # (Auto) 0.4 K/mm3 (1.2-5.4) L 10/29/20 05:50 Ward # (Auto) 0.5 K/mm3 (0.0-0.8) 10/29/20 05:50 Eos # (Auto) 0.0 K/mm3 (0.0-0.4) 10/29/20 05:50 Baso # (Auto) 0.0 K/mm3 (0.0-0.1) 10/29/20 05:50 Add Manual Diff Complete 10/28/20 01:58 Total Counted 100 10/28/20 01:58 Seg Neutrophils % 87.8 % (40.0-70.0) H 10/29/20 05:50 Seg Neuts % (Manual) 97.0 % (40.0-70.0) H 10/28/20 01:58 Lymphocytes % (Manual) 1.0 % (13.4-35.0) L 10/28/20 01:58 Monocytes % (Manual) 2.0 % (0.0-7.3) 10/28/20 01:58 Nucleated RBC % Not Reportable 10/28/20 01:58 Seg Neutrophils # 6.4 K/mm3 (1.8-7.7) 10/29/20 05:50 Seg Neutrophils # Man 10.7 K/mm3 (1.8-7.7) H 10/28/20 01:58 Band Neutrophils # 0.0 K/mm3 10/28/20 01:58 Lymphocytes # (Manual) 0.1 K/mm3 (1.2-5.4) L 10/28/20 01:58 Abs React Lymphs (Man) 0.0 K/mm3 10/28/20 01:58 Monocytes # (Manual) 0.2 K/mm3 (0.0-0.8) 10/28/20 01:58 Eosinophils # (Manual) 0.0 K/mm3 (0.0-0.4) 10/28/20 01:58 Basophils # (Manual) 0.0 K/mm3 (0.0-0.1) 10/28/20 01:58 Metamyelocytes # 0.0 K/mm3 10/28/20 01:58 Myelocytes # 0.0 K/mm3 10/28/20 01:58 Promyelocytes # 0.0 K/mm3 10/28/20 01:58 Blast Cells # 0.0 K/mm3 10/28/20 01:58 WBC Morphology Not Reportable 10/28/20 01:58 Hypersegmented Neuts Not Reportable 10/28/20 01:58 Hyposegmented Neuts Not Reportable 10/28/20 01:58 Hypogranular Neuts Not Reportable 10/28/20 01:58 Smudge Cells Not Reportable 10/28/20 01:58 Toxic Granulation Not Reportable 10/28/20 01:58 Toxic Vacuolation Not Reportable 10/28/20 01:58 Dohle Bodies Not Reportable 10/28/20 01:58 Pelger-Huet Anomaly Not Reportable 10/28/20 01:58 Trey Rods Not Reportable 10/28/20 01:58 Platelet Estimate Consistent w auto 10/28/20 01:58 Clumped Platelets Not Reportable 10/28/20 01:58 Plt Clumps, EDTA Not Reportable 10/28/20 01:58 Large Platelets Not Reportable 10/28/20 01:58 Giant Platelets Not Reportable 10/28/20 01:58 Platelet Satelliting Not Reportable 10/28/20 01:58 Plt Morphology Comment Not Reportable 10/28/20 01:58 RBC Morphology Normal 10/28/20 01:58 Dimorphic RBCs Not Reportable 10/28/20 01:58 Polychromasia Not Reportable 10/28/20 01:58 Hypochromasia Not Reportable 10/28/20 01:58 Poikilocytosis Not Reportable 10/28/20 01:58 Anisocytosis Not Reportable 10/28/20 01:58 Microcytosis Not Reportable 10/28/20 01:58 Macrocytosis Not Reportable 10/28/20 01:58 Spherocytes Not Reportable 10/28/20 01:58 Pappenheimer Bodies Not Reportable 10/28/20 01:58 Sickle Cells Not Reportable 10/28/20 01:58 Target Cells Not Reportable 10/28/20 01:58 Tear Drop Cells Not Reportable 10/28/20 01:58 Ovalocytes Not Reportable 10/28/20 01:58 Helmet Cells Not Reportable 10/28/20 01:58 Greer-Manzano Bodies Not Reportable 10/28/20 01:58 Medford Rings Not Reportable 10/28/20 01:58 Antigo Cells Not Reportable 10/28/20 01:58 Bite Cells Not Reportable 10/28/20 01:58 Crenated Cell Not Reportable 10/28/20 01:58 Elliptocytes Not Reportable 10/28/20 01:58 Acanthocytes (Spur) Not Reportable 10/28/20 01:58 Rouleaux Not Reportable 10/28/20 01:58 Hemoglobin C Crystals Not Reportable 10/28/20 01:58 Schistocytes Not Reportable 10/28/20 01:58 Malaria parasites Not Reportable 10/28/20 01:58 Froylan Bodies Not Reportable 10/28/20 01:58 Hem Pathologist Commnt No 10/28/20 01:58 PT 13.2 Sec. (12.2-14.9) 10/28/20 01:58 INR 1.01 (0.87-1.13) 10/28/20 01:58 D-Dimer 496.75 ng/mlDDU (0-234) H 11/03/20 05:14 ABG pH 7.467 (7.320-7.450) H 10/30/20 16:15 POC ABG pCO2 31.8 mmHg (32.0-48.0) L 10/30/20 16:15 POC ABG pO2 67.8 mmHg (83-108) L 10/30/20 16:15 POC ABG HCO3 22.5 10/30/20 16:15 ABG O2 Saturation 93.1 (0-100) 10/30/20 16:15 POC ABG Base Excess -0.3 10/30/20 16:15 ABG Hemoglobin 15.2 (12.0-17.5) 10/30/20 16:15 ABG Oxyhemoglobin 92.3 (94-98) L 10/30/20 16:15 ABG Methemoglobin 0.3 (0.0-1.5) 10/30/20 16:15 ABG Sodium 133.7 mmol/L (136.0-145.0) L 10/30/20 16:15 ABG Potassium 3.9 mmol/L (3.40-4.50) 10/30/20 16:15 ABG Chloride 100.0 mmol/L (98-107) 10/30/20 16:15 ABG Glucose 145 mg/dL (65-95) H 10/30/20 16:15 Carboxyhemoglobin 0.6 (0.5-1.5) 10/30/20 16:15 FiO2 % 65 10/30/20 16:15 Sodium 134 mmol/L (137-145) L 11/03/20 05:14 Potassium 4.0 mmol/L (3.6-5.0) 11/03/20 05:14 Chloride 96.3 mmol/L (98-107) L 11/03/20 05:14 Carbon Dioxide 25 mmol/L (22-30) 11/03/20 05:14 Anion Gap 17 mmol/L 11/03/20 05:14 BUN 16 mg/dL (9-20) 11/03/20 05:14 Creatinine 0.4 mg/dL (0.8-1.3) L 11/03/20 05:14 Estimated GFR > 60 ml/min 11/03/20 05:14 BUN/Creatinine Ratio 40 % 11/03/20 05:14 Glucose 110 mg/dL (75-100) H 11/03/20 05:14 POC Glucose 73 mg/dL (70-105) 11/02/20 07:27 Lactic Acid 1.40 mmol/L (0.7-2.0) 10/28/20 01:58 Calcium 9.2 mg/dL (8.4-10.2) 11/03/20 05:14 Magnesium 2.20 mg/dL (1.7-2.3) 10/28/20 01:58 Ferritin 1631.0 ng/mL (30.0-300.0) H 11/03/20 05:14 Total Bilirubin 0.30 mg/dL (0.1-1.2) 10/31/20 05:15 AST 61 units/L (5-40) H 10/31/20 05:15 ALT 147 units/L (7-56) H 10/31/20 05:15 Alkaline Phosphatase 148 units/L (35-129) H 10/31/20 05:15 Lactate Dehydrogenase 404 units/L (91-180) H 11/03/20 05:14 Troponin T < 0.010 ng/mL (0.00-0.029) 10/31/20 17:45 C-Reactive Protein 19.90 mg/dL (0.00-1.30) H 10/29/20 05:50 NT-Pro-B Natriuret Pep 1661 pg/mL (0-450) H 10/28/20 01:58 Total Protein 6.4 g/dL (6.3-8.2) 10/31/20 05:15 Albumin 3.2 g/dL (3.9-5) L 10/31/20 05:15 Albumin/Globulin Ratio 1.0 % 10/31/20 05:15 Procalcitonin 1.74 ng/mL (<0.15) 10/28/20 01:58 Arterial Blood Glucose 145 mg/dL (65-95) H 10/30/20 16:15 Arterial Blood Ionized Calcium 4.6 mg/dL (4.6-5.3) 10/30/20 16:15 Coronavirus (PCR) Positive (Negative) A 10/29/20 Unknown Nava/IV: Voiding Method Urinal Active Medications - Current Medications Current Medications: Generic Name Dose Route Start Last Admin Trade Name Freq PRN Reason Stop Dose Admin Acetaminophen 650 mg 10/28/20 03:35 11/02/20 20:48 Acetaminophen 325 Mg Tab PO 650 mg Q4H PRN Administration Pain MILD(1-3)/Fever >100.5/RIVERA Albuterol 2.5 mg 10/29/20 09:26 Albuterol 2.5 Mg/3 Ml Nebu IH Q4HRT PRN Shortness Of Breath Ascorbic Acid 1,000 mg 10/28/20 11:00 11/03/20 10:05 Ascorbic Acid 500 Mg Tab PO 1,000 mg BID TERI Administration Aspirin 81 mg 11/01/20 10:00 11/03/20 10:04 Aspirin 81 Mg Tab Chew PO 81 mg QDAY TERI Administration Cholecalciferol 5,000 unit 10/28/20 11:00 11/03/20 10:05 Cholecalciferol (Vit D3) 5,000 Unit Tab PO 5,000 unit DAILY TERI Administration Dexamethasone 6 mg 10/30/20 10:00 11/03/20 10:05 Dexamethasone 2 Mg Tab PO 11/06/20 10:01 6 mg DAILY TERI Administration Guaifenesin 10 ml 10/29/20 10:26 Guaifenesin Dm 200/20 Mg Oral Liqd 10 Ml PO Q4H PRN Cough Heparin Sodium (Porcine) 5,000 unit 10/28/20 06:00 11/03/20 06:31 Heparin 5,000 Unit/1 Ml Vial SUB-Q 5,000 unit Q8HR TERI Administration Hydralazine HCl 10 mg 10/28/20 03:36 Hydralazine 20 Mg/1 Ml Inj IV Q6H PRN htn Hydrocodone Bit/Homatropine Methylb 10 ml 10/29/20 10:25 11/02/20 01:55 Hydrocodone/Homatropine 5-1.5mg /5 Ml Oral Liqd Unit Dose PO 10 ml Q6H PRN Administration Cough Metoprolol Tartrate 12.5 mg 10/31/20 22:00 11/03/20 10:04 Metoprolol Tartrate 25 Mg Tab PO 12.5 mg BID TERI Administration Ondansetron HCl 4 mg 10/28/20 03:35 Ondansetron 4 Mg/2 Ml Inj IV Q8H PRN Nausea And Vomiting Pantoprazole Sodium 40 mg 10/28/20 07:30 11/03/20 07:46 Pantoprazole 40 Mg Tab PO 40 mg QDAC TERI Administration Sodium Chloride 10 ml 10/28/20 10:00 11/03/20 10:05 Sodium Chloride 0.9% 10 Ml Flush Syringe IV 10 ml BID TERI Administration Sodium Chloride 10 ml 10/28/20 03:35 Sodium Chloride 0.9% 10 Ml Flush Syringe IV PRN PRN LINE FLUSH Zinc Sulfate 220 mg 10/28/20 11:00 11/03/20 10:04 Zinc Sulfate 220 Mg Cap PO 220 mg QDAY TERI Administration
--- NOTE | 2020-11-03 14:01 | Progress Note ---
Assessment and Plan Patient alert, awake. Still on high flow O2. On vapotherm and FIO2 55%. O2 saturation 93%. Still complaining shortness of breath even with little exertion and cough . Cough non productive. Patient afebrile. No leukocytosis. Blood pressure 119/84. Chest xray obtained 10/31/20 reported No significant interval change in the bilateral lung opacities. No new acute process. Inflammatory markers Serum ferritin 1631 LDH 404 D Dimer 496.75 - Patient Problems (1) Acute respiratory failure with hypoxia Current Visit: Yes Status: Acute Plan to address problem: Patient is on High flow O2, Vapotherm, FIO2 55%. Patient is on dexamethasone. S/C Heparin. Protonix. (2) COVID-19 Current Visit: Yes Status: Acute Plan to address problem: Patient iwas on REMDESIVIR Patient is on dexamethasone, S/C Heparin and Protonix. Management as per infectious disease specialists. (3) Pneumonia due to COVID-19 virus Current Visit: Yes Status: Acute Plan to address problem: Patient was on ceftriaxone and zithromax. Subjective Date of service: 11/03/20 Principal diagnosis: Acute hypoxemic resp failure; COVID-19; Pneumonia; Transaminitis; Anxiety Interval history: Patient alert, awake. Still on high flow O2. On vapotherm and FIO2 55%. O2 saturation 93%. Still complaining shortness of breath even with little exertion and cough . Cough non productive. Patient afebrile. No leukocytosis. Blood pressure 119/84. Chest xray obtained 10/31/20 reported No significant interval change in the bilateral lung opacities. No new acute process. Inflammatory markers Serum ferritin 1631 LDH 404 D Dimer 496.75 Objective Vital Signs - 12hr 11/03/20 11/03/20 11/03/20 04:06 06:20 06:33 Temperature 97.5 F L Pulse Rate 84 91 H 86 Respiratory 38 H 29 H 18 Rate Blood Pressure 121/86 O2 Sat by Pulse 95 94 94 Oximetry 11/03/20 11/03/20 07:50 11:14 Temperature Pulse Rate Respiratory 20 Rate Blood Pressure O2 Sat by Pulse 94 91 Oximetry Constitutional: alert, appears uncomfortable (less so), other (middle aged male with mildfly increase respiratory effort at rest) Eyes: non-icteric ENT: oropharynx moist Neck: supple, no lymphadenopathy, no JVD Effort: mildly labored Ascultation: Bilateral: rales (bases; inspiratory), rhonchi Percussion: Bilateral: not dull Cardiovascular: regular rate and rhythm Gastrointestinal: normoactive bowel sounds, soft, non-tender, non-distended Integumentary: normal Extremities: no cyanosis, no edema, pulses normal, no ischemia or petechiae Neurologic: normal mental status, non-focal exam, pupils equal and round, CN II- XII normal Psychiatric: mood appropriate, anxious (less so) CBC and BMP: 11/03/20 05:14 11/03/20 05:14 ABG, PT/INR, D-dimer: ABG ABG pH 7.467 (7.320-7.450) H 10/30/20 16:15 POC ABG pCO2 31.8 mmHg (32.0-48.0) L 10/30/20 16:15 POC ABG pO2 67.8 mmHg (83-108) L 10/30/20 16:15 POC ABG HCO3 22.5 10/30/20 16:15 ABG O2 Saturation 93.1 (0-100) 10/30/20 16:15 PT/INR, D-dimer PT 13.2 Sec. (12.2-14.9) 10/28/20 01:58 INR 1.01 (0.87-1.13) 10/28/20 01:58 D-Dimer 496.75 ng/mlDDU (0-234) H 11/03/20 05:14 Abnormal lab findings: Abnormal Labs 10/28/20 10/28/20 10/28/20 01:58 01:58 01:58 Hgb 15.4 H MCH 33 H MCHC 36 H Plt Count Lymph % (Auto) Lymph # (Auto) Seg Neutrophils % Seg Neuts % (Manual) 97.0 H Lymphocytes % (Manual) 1.0 L Seg Neutrophils # Man 10.7 H Lymphocytes # (Manual) 0.1 L D-Dimer ABG pH POC ABG pCO2 POC ABG pO2 ABG Oxyhemoglobin ABG Sodium ABG Glucose Sodium 135 L Chloride 96.1 L BUN 8 L Creatinine 0.6 L Glucose 130 H Calcium Ferritin AST 45 H ALT 69 H Alkaline Phosphatase 189 H Lactate Dehydrogenase 339 H C-Reactive Protein 32.80 H NT-Pro-B Natriuret Pep Albumin 3.6 L Arterial Blood Glucose Coronavirus (PCR) 10/28/20 10/28/20 10/28/20 01:58 01:58 13:48 Hgb MCH MCHC Plt Count Lymph % (Auto) Lymph # (Auto) Seg Neutrophils % Seg Neuts % (Manual) Lymphocytes % (Manual) Seg Neutrophils # Man Lymphocytes # (Manual) D-Dimer ABG pH POC ABG pCO2 POC ABG pO2 ABG Oxyhemoglobin ABG Sodium ABG Glucose Sodium 134 L Chloride 96.2 L BUN Creatinine 0.6 L Glucose 159 H Calcium Ferritin 1631.0 H AST 41 H ALT 59 H Alkaline Phosphatase 187 H Lactate Dehydrogenase C-Reactive Protein NT-Pro-B Natriuret Pep 1661 H Albumin 3.6 L Arterial Blood Glucose Coronavirus (PCR) 10/29/20 10/29/20 10/29/20 05:50 05:50 05:50 Hgb MCH MCHC 36 H Plt Count Lymph % (Auto) 5.8 L Lymph # (Auto) 0.4 L Seg Neutrophils % 87.8 H Seg Neuts % (Manual) Lymphocytes % (Manual) Seg Neutrophils # Man Lymphocytes # (Manual) D-Dimer ABG pH POC ABG pCO2 POC ABG pO2 ABG Oxyhemoglobin ABG Sodium ABG Glucose Sodium Chloride BUN Creatinine 0.6 L Glucose 143 H Calcium Ferritin AST 59 H ALT 71 H Alkaline Phosphatase 159 H Lactate Dehydrogenase C-Reactive Protein 19.90 H NT-Pro-B Natriuret Pep Albumin 3.0 L Arterial Blood Glucose Coronavirus (PCR) 10/29/20 10/30/20 10/30/20 Unknown 05:46 05:46 Hgb MCH MCHC Plt Count Lymph % (Auto) Lymph # (Auto) Seg Neutrophils % Seg Neuts % (Manual) Lymphocytes % (Manual) Seg Neutrophils # Man Lymphocytes # (Manual) D-Dimer 347.85 H ABG pH POC ABG pCO2 POC ABG pO2 ABG Oxyhemoglobin ABG Sodium ABG Glucose Sodium Chloride BUN Creatinine 0.6 L Glucose 133 H Calcium 8.3 L Ferritin AST 52 H ALT 82 H Alkaline Phosphatase 144 H Lactate Dehydrogenase C-Reactive Protein NT-Pro-B Natriuret Pep Albumin 3.1 L Arterial Blood Glucose Coronavirus (PCR) Positive A 10/30/20 10/30/20 10/30/20 05:46 05:46 16:15 Hgb MCH MCHC Plt Count Lymph % (Auto) Lymph # (Auto) Seg Neutrophils % Seg Neuts % (Manual) Lymphocytes % (Manual) Seg Neutrophils # Man Lymphocytes # (Manual) D-Dimer ABG pH 7.467 H POC ABG pCO2 31.8 L POC ABG pO2 67.8 L ABG Oxyhemoglobin 92.3 L ABG Sodium 133.7 L ABG Glucose 145 H Sodium Chloride BUN Creatinine Glucose 133 H Calcium Ferritin 1775.0 H AST ALT Alkaline Phosphatase Lactate Dehydrogenase 302 H C-Reactive Protein NT-Pro-B Natriuret Pep Albumin Arterial Blood Glucose 145 H Coronavirus (PCR) 10/31/20 11/01/20 11/01/20 05:15 06:27 06:27 Hgb MCH MCHC Plt Count Lymph % (Auto) Lymph # (Auto) Seg Neutrophils % Seg Neuts % (Manual) Lymphocytes % (Manual) Seg Neutrophils # Man Lymphocytes # (Manual) D-Dimer 406.47 H ABG pH POC ABG pCO2 POC ABG pO2 ABG Oxyhemoglobin ABG Sodium ABG Glucose Sodium 136 L Chloride BUN 21 H Creatinine 0.6 L Glucose Calcium 8.0 L Ferritin AST 61 H ALT 147 H Alkaline Phosphatase 148 H Lactate Dehydrogenase 303 H C-Reactive Protein NT-Pro-B Natriuret Pep Albumin 3.2 L Arterial Blood Glucose Coronavirus (PCR) 11/01/20 11/03/20 11/03/20 06:27 05:14 05:14 Hgb MCH MCHC Plt Count Lymph % (Auto) Lymph # (Auto) Seg Neutrophils % Seg Neuts % (Manual) Lymphocytes % (Manual) Seg Neutrophils # Man Lymphocytes # (Manual) D-Dimer 496.75 H ABG pH POC ABG pCO2 POC ABG pO2 ABG Oxyhemoglobin ABG Sodium ABG Glucose Sodium 134 L Chloride 96.3 L BUN Creatinine 0.4 L Glucose 110 H Calcium Ferritin 1667.0 H AST ALT Alkaline Phosphatase Lactate Dehydrogenase 404 H C-Reactive Protein NT-Pro-B Natriuret Pep Albumin Arterial Blood Glucose Coronavirus (PCR) 11/03/20 11/03/20 05:14 05:14 Hgb 15.8 H MCH 33 H MCHC 36 H Plt Count 648 H Lymph % (Auto) Lymph # (Auto) Seg Neutrophils % Seg Neuts % (Manual) Lymphocytes % (Manual) Seg Neutrophils # Man Lymphocytes # (Manual) D-Dimer ABG pH POC ABG pCO2 POC ABG pO2 ABG Oxyhemoglobin ABG Sodium ABG Glucose Sodium Chloride BUN Creatinine Glucose Calcium Ferritin 1631.0 H AST ALT Alkaline Phosphatase Lactate Dehydrogenase C-Reactive Protein NT-Pro-B Natriuret Pep Albumin Arterial Blood Glucose Coronavirus (PCR) Chest x-ray: report reviewed, image reviewed Additional Studies: CHEST 1 VIEW 10/31/20 INDICATION: Pneumonia, Covid 19. COMPARISON: 10/28/2020 FINDINGS: Support devices: None. Heart: Within normal limits. Lungs/Pleura: Poor inspiration. Given differences in the level of inspiration, no appreciable change in the bilateral lung opacities. No pleural effusion or pneumothorax is appreciated. Additional findings: None. IMPRESSION: No significant interval change in the bilateral lung opacities. No new acute process. Allied health notes reviewed: nursing
[2020-11-03] MEDS: ACETAMINOPHEN 325 MG TAB PO PRN (22:15)
[2020-11-04] MEDS: HEPARIN 5,000 UNIT/1 ML VIAL SUB-Q SCH ×3 (06:21→22:17)
--- NOTE | 2020-11-04 09:16 | XRay Report ---
CHEST 1 VIEW INDICATION: Covid-19 pneumonia. COMPARISON: 10/31/2020 FINDINGS: Support devices: None. Heart: Within normal limits. Lungs/Pleura: There is slightly better inspiration. Scattered bilateral lung opacities appear slightl y increased in density since 10/31/2020. No pleural effusion or pneumothorax. Additional findings: None. IMPRESSION: Minimal increase in the bilateral lung opacities. Signer Name: Chung Gomez Jr, MD Signed: 11/04/2020 9:12 AM Workstation Name: [id number]
[2020-11-04] MEDS: DEXAMETHASONE 2 MG TAB PO SCH (11:01)
[2020-11-04] MEDS: ASCORBIC ACID 500 MG TAB PO SCH ×2 (11:01→22:20)
[2020-11-04] MEDS: CHOLECALCIFEROL (VIT D3) 5,000 UNIT TAB PO SCH (11:02)
[2020-11-04] MEDS: ASPIRIN 81 MG TAB CHEW PO SCH (11:02)
[2020-11-04] MEDS: guaiFENesin DM 200/20 MG ORAL LIQD 10 ML PO PRN ×3 (11:03→22:19)
[2020-11-04] MEDS: METOPROLOL TARTRATE 25 MG TAB PO SCH ×2 (11:03→22:22)
[2020-11-04] MEDS: PANTOPRAZOLE 40 MG TAB PO SCH (11:03)
[2020-11-04] MEDS: ZINC SULFATE 220 MG CAP PO SCH (11:04)
--- NOTE | 2020-11-04 11:08 | Progress Note ---
Assessment and Plan Patient alert, awake. Still on high flow O2. On vapotherm and FIO2 65%. O2 saturation 91%. Still complaining shortness of breath even with little exertion and cough . Cough non productive. Patient afebrile. No leukocytosis. Blood pressure 109/71. Chest xray obtained 10/31/20 reported No significant interval change in the bilateral lung opacities. No new acute process. Chest xray 11/04/20 reported Minimal increase in the bilateral lung opacities. Inflammatory markers Serum ferritin 1631 LDH 404 D Dimer 496.75 - Patient Problems (1) Acute respiratory failure with hypoxia Current Visit: Yes Status: Acute Plan to address problem: Patient is on High flow O2, Vapotherm, FIO2 65%. Patient is on dexamethasone. S/C Heparin. Protonix. (2) COVID-19 Current Visit: Yes Status: Acute Plan to address problem: Patient was on REMDESIVIR Patient is on dexamethasone, S/C Heparin and Protonix. Management as per infectious disease specialists. (3) Pneumonia due to COVID-19 virus Current Visit: Yes Status: Acute Plan to address problem: Patient was on ceftriaxone and zithromax. Subjective Date of service: 11/04/20 Principal diagnosis: Acute hypoxemic resp failure; COVID-19; Pneumonia; Transaminitis; Anxiety Interval history: Patient alert, awake. Still on high flow O2. On vapotherm and FIO2 65%. O2 saturation 91%. Still complaining shortness of breath even with little exertion and cough . Cough non productive. Patient afebrile. No leukocytosis. Blood pressure 109/71. Chest xray obtained 10/31/20 reported No significant interval change in the bilateral lung opacities. No new acute process. Chest xray 11/04/20 reported Minimal increase in the bilateral lung opacities. Inflammatory markers Serum ferritin 1631 LDH 404 D Dimer 496.75 Objective Vital Signs - 12hr 11/04/20 11/04/20 11/04/20 02:39 04:39 05:34 Temperature 98.1 F Pulse Rate 89 Respiratory 20 Rate Blood Pressure 121/83 O2 Sat by Pulse 91 92 95 Oximetry 11/04/20 08:00 Temperature Pulse Rate Respiratory Rate Blood Pressure O2 Sat by Pulse 91 Oximetry Constitutional: alert, appears uncomfortable (less so), other (middle aged male with mildfly increase respiratory effort at rest) Eyes: non-icteric ENT: oropharynx moist Neck: supple, no lymphadenopathy, no JVD Effort: mildly labored Ascultation: Bilateral: rales (bases; inspiratory), rhonchi Percussion: Bilateral: not dull Cardiovascular: regular rate and rhythm Gastrointestinal: normoactive bowel sounds, soft, non-tender, non-distended Integumentary: normal Extremities: no cyanosis, no edema, pulses normal, no ischemia or petechiae Neurologic: normal mental status, non-focal exam, pupils equal and round, CN II- XII normal Psychiatric: mood appropriate, anxious (less so) CBC and BMP: 11/03/20 05:14 11/03/20 05:14 ABG, PT/INR, D-dimer: ABG ABG pH 7.467 (7.320-7.450) H 10/30/20 16:15 POC ABG pCO2 31.8 mmHg (32.0-48.0) L 10/30/20 16:15 POC ABG pO2 67.8 mmHg (83-108) L 10/30/20 16:15 POC ABG HCO3 22.5 10/30/20 16:15 ABG O2 Saturation 93.1 (0-100) 10/30/20 16:15 PT/INR, D-dimer PT 13.2 Sec. (12.2-14.9) 10/28/20 01:58 INR 1.01 (0.87-1.13) 10/28/20 01:58 D-Dimer 496.75 ng/mlDDU (0-234) H 11/03/20 05:14 Abnormal lab findings: Abnormal Labs 10/28/20 10/28/20 10/28/20 01:58 01:58 01:58 Hgb 15.4 H MCH 33 H MCHC 36 H Plt Count Lymph % (Auto) Lymph # (Auto) Seg Neutrophils % Seg Neuts % (Manual) 97.0 H Lymphocytes % (Manual) 1.0 L Seg Neutrophils # Man 10.7 H Lymphocytes # (Manual) 0.1 L D-Dimer ABG pH POC ABG pCO2 POC ABG pO2 ABG Oxyhemoglobin ABG Sodium ABG Glucose Sodium 135 L Chloride 96.1 L BUN 8 L Creatinine 0.6 L Glucose 130 H Calcium Ferritin AST 45 H ALT 69 H Alkaline Phosphatase 189 H Lactate Dehydrogenase 339 H C-Reactive Protein 32.80 H NT-Pro-B Natriuret Pep Albumin 3.6 L Arterial Blood Glucose Coronavirus (PCR) 10/28/20 10/28/20 10/28/20 01:58 01:58 13:48 Hgb MCH MCHC Plt Count Lymph % (Auto) Lymph # (Auto) Seg Neutrophils % Seg Neuts % (Manual) Lymphocytes % (Manual) Seg Neutrophils # Man Lymphocytes # (Manual) D-Dimer ABG pH POC ABG pCO2 POC ABG pO2 ABG Oxyhemoglobin ABG Sodium ABG Glucose Sodium 134 L Chloride 96.2 L BUN Creatinine 0.6 L Glucose 159 H Calcium Ferritin 1631.0 H AST 41 H ALT 59 H Alkaline Phosphatase 187 H Lactate Dehydrogenase C-Reactive Protein NT-Pro-B Natriuret Pep 1661 H Albumin 3.6 L Arterial Blood Glucose Coronavirus (PCR) 10/29/20 10/29/20 10/29/20 05:50 05:50 05:50 Hgb MCH MCHC 36 H Plt Count Lymph % (Auto) 5.8 L Lymph # (Auto) 0.4 L Seg Neutrophils % 87.8 H Seg Neuts % (Manual) Lymphocytes % (Manual) Seg Neutrophils # Man Lymphocytes # (Manual) D-Dimer ABG pH POC ABG pCO2 POC ABG pO2 ABG Oxyhemoglobin ABG Sodium ABG Glucose Sodium Chloride BUN Creatinine 0.6 L Glucose 143 H Calcium Ferritin AST 59 H ALT 71 H Alkaline Phosphatase 159 H Lactate Dehydrogenase C-Reactive Protein 19.90 H NT-Pro-B Natriuret Pep Albumin 3.0 L Arterial Blood Glucose Coronavirus (PCR) 10/29/20 10/30/20 10/30/20 Unknown 05:46 05:46 Hgb MCH MCHC Plt Count Lymph % (Auto) Lymph # (Auto) Seg Neutrophils % Seg Neuts % (Manual) Lymphocytes % (Manual) Seg Neutrophils # Man Lymphocytes # (Manual) D-Dimer 347.85 H ABG pH POC ABG pCO2 POC ABG pO2 ABG Oxyhemoglobin ABG Sodium ABG Glucose Sodium Chloride BUN Creatinine 0.6 L Glucose 133 H Calcium 8.3 L Ferritin AST 52 H ALT 82 H Alkaline Phosphatase 144 H Lactate Dehydrogenase C-Reactive Protein NT-Pro-B Natriuret Pep Albumin 3.1 L Arterial Blood Glucose Coronavirus (PCR) Positive A 10/30/20 10/30/20 10/30/20 05:46 05:46 16:15 Hgb MCH MCHC Plt Count Lymph % (Auto) Lymph # (Auto) Seg Neutrophils % Seg Neuts % (Manual) Lymphocytes % (Manual) Seg Neutrophils # Man Lymphocytes # (Manual) D-Dimer ABG pH 7.467 H POC ABG pCO2 31.8 L POC ABG pO2 67.8 L ABG Oxyhemoglobin 92.3 L ABG Sodium 133.7 L ABG Glucose 145 H Sodium Chloride BUN Creatinine Glucose 133 H Calcium Ferritin 1775.0 H AST ALT Alkaline Phosphatase Lactate Dehydrogenase 302 H C-Reactive Protein NT-Pro-B Natriuret Pep Albumin Arterial Blood Glucose 145 H Coronavirus (PCR) 10/31/20 11/01/20 11/01/20 05:15 06:27 06:27 Hgb MCH MCHC Plt Count Lymph % (Auto) Lymph # (Auto) Seg Neutrophils % Seg Neuts % (Manual) Lymphocytes % (Manual) Seg Neutrophils # Man Lymphocytes # (Manual) D-Dimer 406.47 H ABG pH POC ABG pCO2 POC ABG pO2 ABG Oxyhemoglobin ABG Sodium ABG Glucose Sodium 136 L Chloride BUN 21 H Creatinine 0.6 L Glucose Calcium 8.0 L Ferritin AST 61 H ALT 147 H Alkaline Phosphatase 148 H Lactate Dehydrogenase 303 H C-Reactive Protein NT-Pro-B Natriuret Pep Albumin 3.2 L Arterial Blood Glucose Coronavirus (PCR) 11/01/20 11/03/20 11/03/20 06:27 05:14 05:14 Hgb MCH MCHC Plt Count Lymph % (Auto) Lymph # (Auto) Seg Neutrophils % Seg Neuts % (Manual) Lymphocytes % (Manual) Seg Neutrophils # Man Lymphocytes # (Manual) D-Dimer 496.75 H ABG pH POC ABG pCO2 POC ABG pO2 ABG Oxyhemoglobin ABG Sodium ABG Glucose Sodium 134 L Chloride 96.3 L BUN Creatinine 0.4 L Glucose 110 H Calcium Ferritin 1667.0 H AST ALT Alkaline Phosphatase Lactate Dehydrogenase 404 H C-Reactive Protein NT-Pro-B Natriuret Pep Albumin Arterial Blood Glucose Coronavirus (PCR) 11/03/20 11/03/20 05:14 05:14 Hgb 15.8 H MCH 33 H MCHC 36 H Plt Count 648 H Lymph % (Auto) Lymph # (Auto) Seg Neutrophils % Seg Neuts % (Manual) Lymphocytes % (Manual) Seg Neutrophils # Man Lymphocytes # (Manual) D-Dimer ABG pH POC ABG pCO2 POC ABG pO2 ABG Oxyhemoglobin ABG Sodium ABG Glucose Sodium Chloride BUN Creatinine Glucose Calcium Ferritin 1631.0 H AST ALT Alkaline Phosphatase Lactate Dehydrogenase C-Reactive Protein NT-Pro-B Natriuret Pep Albumin Arterial Blood Glucose Coronavirus (PCR) Chest x-ray: report reviewed, image reviewed Additional Studies: CHEST 1 VIEW 11/04/20 INDICATION: Covid-19 pneumonia. COMPARISON: 10/31/2020 FINDINGS: Support devices: None. Heart: Within normal limits. Lungs/Pleura: There is slightly better inspiration. Scattered bilateral lung opacities appear slightly increased in density since 10/31/2020. No pleural effusion or pneumothorax. Additional findings: None. IMPRESSION: Minimal increase in the bilateral lung opacities. Allied health notes reviewed: nursing
--- NOTE | 2020-11-04 11:16 | Progress Note ---
Assessment and Plan Cultures: SARS CoV2 PCR: Indeterminate here, positive as outpatient Blood culture: negative A/P: 44-year-old male with: #Bilateral pneumonia: Secondary to COVID-19. #Acute hypoxic respiratory failure: On HFNC #Transaminitis: Secondary to COVID-19. Stable. Recs: -continue IV/PO Dexamethasone x 10 days -Completed empiric antibiotics. -Completed remdesivir. -prophylactic anticoagulation based on d-dimer per hospital protocol -trend ferritin, LDH, d-dimer, CRP every 2-3 days for risk stratification and to assess disease progression Medhat Holland MD [facility] O: [phone] F: [phone] Subjective Date of service: 11/04/20 Principal diagnosis: Acute hypoxemic resp failure; COVID-19; Pneumonia; Transaminitis; Anxiety Interval history: Afebrile, normal white count. Currently on high flow nasal cannula. Imaging personally reviewed: Chest x-ray: Slightly worse bilateral infiltrates. Objective - Exam Narrative Exam: Physical exam deferred to reduce risk of transmission of COVID-19. Please refer to primary team's note. - Constitutional Vitals: Vital Signs Temp Pulse Resp BP Pulse Ox 98.1 F 89 20 121/83 91 11/04/20 04:39 11/04/20 04:39 11/04/20 04:39 11/04/20 04:39 11/04/20 08:00 Temperature -Last 24 Hours Temperature 98.1 F Temperature 98.2 F Temperature 98.1 F Temperature 98.1 F - Labs CBC & Chem 7: 11/03/20 05:14 11/03/20 05:14
--- NOTE | 2020-11-04 12:46 | Progress Note ---
Assessment and Plan 44-year-old gentleman with no significant past medical history was brought to the emergency room 10/28/20 because of shortness of breath coughing and chest tightness, malaise and fatigue. Patient was diagnosed with Covid around 7 to 8 days ago. In the emergency room patient is found to have acute hypoxic respiratory failure and Covid pneumonia. On discussion patient spouse also was diagnosed with COVID-19 but with a more mild disease. There were plan to get the vaccine but got diagnosed with the disease prior. --Sepsis secondary to COVID19 --Acute hypoxic respiratory due to COVID-19 pneumonia --COVID19 Bilateral Pneumonia --Transaminitis due to COVID 19 --Persistent Cough --Anxiety Plan Continue supportive care, patient continues on high flow Oxygen now at 35 l/min. Continue dexamethasone 6 mg to complete 10 days. Remdesivir discontinued due to transaminitis being elevated Pulmonary consulted and input noted. ID input is appreciated. D-dimer 347.85 Blood cultures done 10/28/20, negative Started antitussives medication for cough Encourage prone positioning as tolerated Continue to monitor inflammatory markers DVT and GI prophylaxis Plan of care discussed with the patient and spouse in detail. Daily clinical course: 10/31/20 patient had chest pain last night, now resolved. Still complain of shortness of breath. No more fever. He also complain of insomnia and requesting sleep aid. he is still on HFNC at 35 l/min. Will repeat CXR today to re-evaluate Covid-19 pneumonia. I discussed plan with patient and on phone. 11/01 Patient with acute respiratory failure due to Covid-19 pneumonia. Still has shortness of breath so Oxygen increased to 40 l/min yesterday. CXR done yesterday was unchanged showing bilateral pneumonia. Pulmonology following. I discussed management plan with on the phone. 11/02 Patient with acute respiratory failure due to Covid-19 pneumonia. Still has shortness of breath. He was started on BIPAP yesterday but has not been tolerating it. He used BIPAP only few hours. I discussed with Nurse to inform Medication Technician. I discussed with on phone. 11/03 Patient with acute respiratory failure due to Covid-19 pneumonia. Still has shortness of breath. He was started on BIPAP on 11/01 but has not been tolerating it. He used BIPAP only few hours. I discussed with Nurse to inform Medication Technician. I discussed with on phone. Today. still has shortness of breath. Asking for soft diet and to sit in chair. Will repeat CXR in am 6/8: Patient remains on 65% FiO2 today, cont to follow inflammatory markers. Wean off O2 as tolerated. Continue steroids to complete 10 days course. Subjective Date of service: 11/04/20 Principal diagnosis: Acute hypoxemic resp failure; COVID-19; Pneumonia; Transa minitis; Anxiety Interval history: Patient seen and examined. Medical records and medication list reviewed. No acute event overnight noted by the RN. Patient complains of difficulty breathing. Remains on high flow O2 patient is tolerating diet. Discussed plan of care at bedside with patient. Objective - Exam Narrative Exam: Limited physical exam due to COVID-19 pandemic to minimize transmission of the disease and to preserve PPE. Vital reviewed and stable. GENERAL: well-developed well-nourished lying on bed appeared to be in no discomfort. HEENT: Normocephalic. Atraumatic. NECK: Supple. CHEST/LUNGS: breathing nonlabored. Patient on high flow O2, HEART/CARDIOVASCULAR: Heart rate stable on telemetry ABDOMEN: Visibly not distended SKIN: There is no rash NEURO: No focal motor deficit. Follows command. MUSCULOSKELETAL: No joint effusion EXTRIMITY: No swelling, no cyanosis or clubbing. PSYCH: Cooperative. - Constitutional Vitals: Vital Signs - 12hr 11/04/20 11/04/20 11/04/20 02:39 04:39 05:34 Temperature 98.1 F Pulse Rate 89 Respiratory 20 Rate Blood Pressure 121/83 O2 Sat by Pulse 91 92 95 Oximetry 11/04/20 08:00 Temperature Pulse Rate Respiratory Rate Blood Pressure O2 Sat by Pulse 91 Oximetry - Labs CBC & Chem 7: 11/03/20 05:14 11/06/20 06:51 HEART Score - HEART Score Troponin: Troponin T < 0.010 ng/mL (0.00-0.029) 10/31/20 17:45
[2020-11-04] MEDS: ACETAMINOPHEN 325 MG TAB PO PRN (22:19)
[2020-11-05] MEDS: guaiFENesin DM 200/20 MG ORAL LIQD 10 ML PO PRN (02:13)
[2020-11-05] MEDS: HEPARIN 5,000 UNIT/1 ML VIAL SUB-Q SCH ×3 (06:16→21:16)
[2020-11-05] MEDS: PANTOPRAZOLE 40 MG TAB PO SCH (08:16)
[2020-11-05] MEDS: CHOLECALCIFEROL (VIT D3) 5,000 UNIT TAB PO SCH (10:06)
[2020-11-05] MEDS: METOPROLOL TARTRATE 25 MG TAB PO SCH ×2 (10:07→21:23)
[2020-11-05] MEDS: DEXAMETHASONE 2 MG TAB PO SCH (10:07)
[2020-11-05] MEDS: ASCORBIC ACID 500 MG TAB PO SCH ×2 (10:07→21:16)
[2020-11-05] MEDS: ASPIRIN 81 MG TAB CHEW PO SCH (10:07)
[2020-11-05] MEDS: ZINC SULFATE 220 MG CAP PO SCH (10:07)
[2020-11-05] MEDS: HYDROcodone/HOMATROPINE 5-1.5MG /5 ML ORAL LIQD UNIT DOSE PO PRN ×2 (10:13→21:17)
[2020-11-05] MEDS: ACETAMINOPHEN 325 MG TAB PO PRN (10:14)
--- NOTE | 2020-11-05 11:52 | Progress Note ---
Assessment and Plan 44-year-old gentleman with no significant past medical history was brought to the emergency room 10/28/20 because of shortness of breath coughing and chest tightness, malaise and fatigue. Patient was diagnosed with Covid around 7 to 8 days ago. In the emergency room patient is found to have acute hypoxic respiratory failure and Covid pneumonia. On discussion patient spouse also was diagnosed with COVID-19 but with a more mild disease. There were plan to get the vaccine but got diagnosed with the disease prior. --Sepsis secondary to COVID19 --Acute hypoxic respiratory due to COVID-19 pneumonia --COVID19 Bilateral Pneumonia --Transaminitis due to COVID 19 --Persistent Cough --Anxiety Plan Continue supportive care, patient continues on high flow Oxygen now at 35 l/min. Continue dexamethasone 6 mg to complete 10 days. Remdesivir discontinued due to transaminitis being elevated Pulmonary consulted and input noted. ID input is appreciated. D-dimer 347.85 Blood cultures done 10/28/20, negative Started antitussives medication for cough Encourage prone positioning as tolerated Continue to monitor inflammatory markers DVT and GI prophylaxis Plan of care discussed with the patient and spouse in detail. Daily clinical course: 10/31/20 patient had chest pain last night, now resolved. Still complain of shortness of breath. No more fever. He also complain of insomnia and requesting sleep aid. he is still on HFNC at 35 l/min. Will repeat CXR today to re-evaluate Covid-19 pneumonia. I discussed plan with patient and on phone. 11/01 Patient with acute respiratory failure due to Covid-19 pneumonia. Still has shortness of breath so Oxygen increased to 40 l/min yesterday. CXR done yesterday was unchanged showing bilateral pneumonia. Pulmonology following. I discussed management plan with on the phone. 11/02 Patient with acute respiratory failure due to Covid-19 pneumonia. Still has shortness of breath. He was started on BIPAP yesterday but has not been tolerating it. He used BIPAP only few hours. I discussed with Nurse to inform Glue Plant Operator. I discussed with on phone. 11/03 Patient with acute respiratory failure due to Covid-19 pneumonia. Still has shortness of breath. He was started on BIPAP on 11/01 but has not been tolerating it. He used BIPAP only few hours. I discussed with Nurse to inform Glue Plant Operator. I discussed with on phone. Today. still has shortness of breath. Asking for soft diet and to sit in chair. Will repeat CXR in am 11/04: Patient remains on 65% FiO2 today, cont to follow inflammatory markers. Wean off O2 as tolerated. Continue steroids to complete 10 days course. 11/05: Remains on 65% FiO2, continue to follow inflammatory markers. Continue em piric steroid. Follow ID recommendation. Pulmonary critical care following. Subjective Date of service: 11/05/20 Principal diagnosis: Acute hypoxemic resp failure; COVID-19; Pneumonia; Transaminitis; Anxiety Interval history: Patient seen and examined. Medical records and medication list reviewed. No acute event overnight noted by the RN. Patient complains of difficulty breathing. Remains on high flow O2 patient is tolerating diet. Discussed plan of care at bedside with patient. Objective - Exam Narrative Exam: Limited physical exam due to COVID-19 pandemic to minimize transmission of the disease and to preserve PPE. Vital reviewed and stable. GENERAL: well-developed well-nourished lying on bed appeared to be in no discomfort. HEENT: Normocephalic. Atraumatic. NECK: Supple. CHEST/LUNGS: breathing nonlabored. Patient on high flow O2, HEART/CARDIOVASCULAR: Heart rate stable on telemetry ABDOMEN: Visibly not distended SKIN: There is no rash NEURO: No focal motor deficit. Follows command. MUSCULOSKELETAL: No joint effusion EXTRIMITY: No swelling, no cyanosis or clubbing. PSYCH: Cooperative. - Constitutional Vitals: Vital Signs - 12hr 11/05/20 11/05/20 11/05/20 02:00 03:00 04:24 Temperature 97.6 F Pulse Rate 95 H 86 Respiratory 28 H 20 Rate Blood Pressure 111/75 O2 Sat by Pulse 93 95 94 Oximetry 11/05/20 11/05/20 11/05/20 07:59 10:07 11:36 Temperature Pulse Rate 86 Respiratory Rate Blood Pressure 111/75 O2 Sat by Pulse 95 96 Oximetry - Labs CBC & Chem 7: 11/03/20 05:14 11/06/20 06:51 HEART Score - HEART Score Troponin: Troponin T < 0.010 ng/mL (0.00-0.029) 10/31/20 17:45
--- NOTE | 2020-11-05 13:46 | Progress Note ---
Assessment and Plan Patient alert, awake. Still on high flow O2. On vapotherm and FIO2 65%. O2 saturation 94%. Still complaining shortness of breath even with little exertion and cough . Cough non productive. Says no chest pain to day. Patient afebrile. No leukocytosis. Blood pressure 119/87. Chest xray obtained 10/31/20 reported No significant interval change in the bilateral lung opacities. No new acute process. Chest xray 11/04/20 reported Minimal increase in the bilateral lung opacities. Inflammatory markers Serum ferritin 1631 LDH 404 D Dimer 496.75 - Patient Problems (1) Acute respiratory failure with hypoxia Current Visit: Yes Status: Acute Plan to address problem: Patient is on High flow O2, Vapotherm, FIO2 65%. Patient is on dexamethasone. S/C Heparin. Protonix. (2) COVID-19 Current Visit: Yes Status: Acute Plan to address problem: Patient iwas on REMDESIVIR Patient is on dexamethasone, S/C Heparin and Protonix. Management as per infectious disease specialists. (3) Pneumonia due to COVID-19 virus Current Visit: Yes Status: Acute Plan to address problem: Patient was on ceftriaxone and zithromax. Subjective Date of service: 11/05/20 Principal diagnosis: Acute hypoxemic resp failure; COVID-19; Pneumonia; Transaminitis; Anxiety Interval history: Patient alert, awake. Still on high flow O2. On vapotherm and FIO2 65%. O2 saturation 94%. Still complaining shortness of breath even with little exertion and cough . Cough non productive. Says no chest pain to day. Patient afebrile. No leukocytosis. Blood pressure 119/87. Chest xray obtained 10/31/20 reported No significant interval change in the bilateral lung opacities. No new acute process. Chest xray 11/04/20 reported Minimal increase in the bilateral lung opacities. Inflammatory markers Serum ferritin 1631 LDH 404 D Dimer 496.75 Objective Vital Signs - 12hr 11/05/20 11/05/20 11/05/20 02:00 03:00 04:24 Temperature 97.6 F Pulse Rate 95 H 86 Respiratory 28 H 20 Rate Blood Pressure 111/75 O2 Sat by Pulse 93 95 94 Oximetry 11/05/20 11/05/20 11/05/20 07:59 10:07 11:36 Temperature Pulse Rate 86 Respiratory Rate Blood Pressure 111/75 O2 Sat by Pulse 95 96 Oximetry Constitutional: alert, appears uncomfortable (less so), other (middle aged male with mildfly increase respiratory effort at rest) Eyes: non-icteric ENT: oropharynx moist Neck: supple, no lymphadenopathy, no JVD Effort: mildly labored Ascultation: Bilateral: rales (bases; inspiratory), rhonchi Percussion: Bilateral: not dull Cardiovascular: regular rate and rhythm Gastrointestinal: normoactive bowel sounds, soft, non-tender, non-distended Integumentary: normal Extremities: no cyanosis, no edema, pulses normal, no ischemia or petechiae Neurologic: normal mental status, non-focal exam, pupils equal and round, CN II- XII normal Psychiatric: mood appropriate, anxious (less so) CBC and BMP: 11/03/20 05:14 11/03/20 05:14 ABG, PT/INR, D-dimer: ABG ABG pH 7.467 (7.320-7.450) H 10/30/20 16:15 POC ABG pCO2 31.8 mmHg (32.0-48.0) L 10/30/20 16:15 POC ABG pO2 67.8 mmHg (83-108) L 10/30/20 16:15 POC ABG HCO3 22.5 10/30/20 16:15 ABG O2 Saturation 93.1 (0-100) 10/30/20 16:15 PT/INR, D-dimer PT 13.2 Sec. (12.2-14.9) 10/28/20 01:58 INR 1.01 (0.87-1.13) 10/28/20 01:58 D-Dimer 496.75 ng/mlDDU (0-234) H 11/03/20 05:14 Abnormal lab findings: Abnormal Labs 10/28/20 10/28/20 10/28/20 01:58 01:58 01:58 Hgb 15.4 H MCH 33 H MCHC 36 H Plt Count Lymph % (Auto) Lymph # (Auto) Seg Neutrophils % Seg Neuts % (Manual) 97.0 H Lymphocytes % (Manual) 1.0 L Seg Neutrophils # Man 10.7 H Lymphocytes # (Manual) 0.1 L D-Dimer ABG pH POC ABG pCO2 POC ABG pO2 ABG Oxyhemoglobin ABG Sodium ABG Glucose Sodium 135 L Chloride 96.1 L BUN 8 L Creatinine 0.6 L Glucose 130 H Calcium Ferritin AST 45 H ALT 69 H Alkaline Phosphatase 189 H Lactate Dehydrogenase 339 H C-Reactive Protein 32.80 H NT-Pro-B Natriuret Pep Albumin 3.6 L Arterial Blood Glucose Coronavirus (PCR) 10/28/20 10/28/20 10/28/20 01:58 01:58 13:48 Hgb MCH MCHC Plt Count Lymph % (Auto) Lymph # (Auto) Seg Neutrophils % Seg Neuts % (Manual) Lymphocytes % (Manual) Seg Neutrophils # Man Lymphocytes # (Manual) D-Dimer ABG pH POC ABG pCO2 POC ABG pO2 ABG Oxyhemoglobin ABG Sodium ABG Glucose Sodium 134 L Chloride 96.2 L BUN Creatinine 0.6 L Glucose 159 H Calcium Ferritin 1631.0 H AST 41 H ALT 59 H Alkaline Phosphatase 187 H Lactate Dehydrogenase C-Reactive Protein NT-Pro-B Natriuret Pep 1661 H Albumin 3.6 L Arterial Blood Glucose Coronavirus (PCR) 10/29/20 10/29/20 10/29/20 05:50 05:50 05:50 Hgb MCH MCHC 36 H Plt Count Lymph % (Auto) 5.8 L Lymph # (Auto) 0.4 L Seg Neutrophils % 87.8 H Seg Neuts % (Manual) Lymphocytes % (Manual) Seg Neutrophils # Man Lymphocytes # (Manual) D-Dimer ABG pH POC ABG pCO2 POC ABG pO2 ABG Oxyhemoglobin ABG Sodium ABG Glucose Sodium Chloride BUN Creatinine 0.6 L Glucose 143 H Calcium Ferritin AST 59 H ALT 71 H Alkaline Phosphatase 159 H Lactate Dehydrogenase C-Reactive Protein 19.90 H NT-Pro-B Natriuret Pep Albumin 3.0 L Arterial Blood Glucose Coronavirus (PCR) 10/29/20 10/30/20 10/30/20 Unknown 05:46 05:46 Hgb MCH MCHC Plt Count Lymph % (Auto) Lymph # (Auto) Seg Neutrophils % Seg Neuts % (Manual) Lymphocytes % (Manual) Seg Neutrophils # Man Lymphocytes # (Manual) D-Dimer 347.85 H ABG pH POC ABG pCO2 POC ABG pO2 ABG Oxyhemoglobin ABG Sodium ABG Glucose Sodium Chloride BUN Creatinine 0.6 L Glucose 133 H Calcium 8.3 L Ferritin AST 52 H ALT 82 H Alkaline Phosphatase 144 H Lactate Dehydrogenase C-Reactive Protein NT-Pro-B Natriuret Pep Albumin 3.1 L Arterial Blood Glucose Coronavirus (PCR) Positive A 10/30/20 10/30/20 10/30/20 05:46 05:46 16:15 Hgb MCH MCHC Plt Count Lymph % (Auto) Lymph # (Auto) Seg Neutrophils % Seg Neuts % (Manual) Lymphocytes % (Manual) Seg Neutrophils # Man Lymphocytes # (Manual) D-Dimer ABG pH 7.467 H POC ABG pCO2 31.8 L POC ABG pO2 67.8 L ABG Oxyhemoglobin 92.3 L ABG Sodium 133.7 L ABG Glucose 145 H Sodium Chloride BUN Creatinine Glucose 133 H Calcium Ferritin 1775.0 H AST ALT Alkaline Phosphatase Lactate Dehydrogenase 302 H C-Reactive Protein NT-Pro-B Natriuret Pep Albumin Arterial Blood Glucose 145 H Coronavirus (PCR) 10/31/20 11/01/20 11/01/20 05:15 06:27 06:27 Hgb MCH MCHC Plt Count Lymph % (Auto) Lymph # (Auto) Seg Neutrophils % Seg Neuts % (Manual) Lymphocytes % (Manual) Seg Neutrophils # Man Lymphocytes # (Manual) D-Dimer 406.47 H ABG pH POC ABG pCO2 POC ABG pO2 ABG Oxyhemoglobin ABG Sodium ABG Glucose Sodium 136 L Chloride BUN 21 H Creatinine 0.6 L Glucose Calcium 8.0 L Ferritin AST 61 H ALT 147 H Alkaline Phosphatase 148 H Lactate Dehydrogenase 303 H C-Reactive Protein NT-Pro-B Natriuret Pep Albumin 3.2 L Arterial Blood Glucose Coronavirus (PCR) 11/01/20 11/03/20 11/03/20 06:27 05:14 05:14 Hgb MCH MCHC Plt Count Lymph % (Auto) Lymph # (Auto) Seg Neutrophils % Seg Neuts % (Manual) Lymphocytes % (Manual) Seg Neutrophils # Man Lymphocytes # (Manual) D-Dimer 496.75 H ABG pH POC ABG pCO2 POC ABG pO2 ABG Oxyhemoglobin ABG Sodium ABG Glucose Sodium 134 L Chloride 96.3 L BUN Creatinine 0.4 L Glucose 110 H Calcium Ferritin 1667.0 H AST ALT Alkaline Phosphatase Lactate Dehydrogenase 404 H C-Reactive Protein NT-Pro-B Natriuret Pep Albumin Arterial Blood Glucose Coronavirus (PCR) 11/03/20 11/03/20 05:14 05:14 Hgb 15.8 H MCH 33 H MCHC 36 H Plt Count 648 H Lymph % (Auto) Lymph # (Auto) Seg Neutrophils % Seg Neuts % (Manual) Lymphocytes % (Manual) Seg Neutrophils # Man Lymphocytes # (Manual) D-Dimer ABG pH POC ABG pCO2 POC ABG pO2 ABG Oxyhemoglobin ABG Sodium ABG Glucose Sodium Chloride BUN Creatinine Glucose Calcium Ferritin 1631.0 H AST ALT Alkaline Phosphatase Lactate Dehydrogenase C-Reactive Protein NT-Pro-B Natriuret Pep Albumin Arterial Blood Glucose Coronavirus (PCR) Allied health notes reviewed: nursing
--- NOTE | 2020-11-05 14:51 | Progress Note ---
Assessment and Plan Cultures: SARS CoV2 PCR: Indeterminate here, positive as outpatient Blood culture: negative A/P: 44-year-old male with: #Bilateral pneumonia: Secondary to COVID-19. #Acute hypoxic respiratory failure: On HFNC #Transaminitis: Secondary to COVID-19. Stable. Recs: -continue IV/PO Dexamethasone x 10 days -Completed empiric antibiotics. -Completed remdesivir. -prophylactic anticoagulation based on d-dimer per hospital protocol -trend ferritin, LDH, d-dimer, CRP every 2-3 days for risk stratification and to assess disease progression Medhat Holland MD [facility] O: [phone] F: [phone] Subjective Date of service: 11/05/20 Principal diagnosis: Acute hypoxemic resp failure; COVID-19; Pneumonia; Transaminitis; Anxiety Interval history: Afebrile, normal white count. Currently on high flow nasal cannula. Objective - Exam Narrative Exam: Physical exam deferred to reduce risk of transmission of COVID-19. Please refer to primary team's note. - Constitutional Vitals: Vital Signs Temp Pulse Resp BP Pulse Ox 98.0 F 93 H 24 111/74 96 11/05/20 11:15 11/05/20 11:15 11/05/20 11:15 11/05/20 11:15 11/05/20 11:36 Temperature -Last 24 Hours Temperature 98.0 F Temperature 97.6 F Temperature 97.6 F Temperature 97.6 F - Labs CBC & Chem 7: 11/03/20 05:14 11/03/20 05:14
[2020-11-06] MEDS: HYDROcodone/HOMATROPINE 5-1.5MG /5 ML ORAL LIQD UNIT DOSE PO PRN ×2 (05:39→20:50)
[2020-11-06] MEDS: HEPARIN 5,000 UNIT/1 ML VIAL SUB-Q SCH ×3 (05:39→21:07)
[2020-11-06 07:25] LABS: Blood Urea Nitrogen 15 mg/dL (9-20); Calcium 8.9 mg/dL (8.4-10.2); Hemolysis Index 2
[2020-11-06 07:50] LABS: BUN/Creatinine Ratio 25
[2020-11-06] MEDS: PANTOPRAZOLE 40 MG TAB PO SCH (08:17)
[2020-11-06] MEDS: METOPROLOL TARTRATE 25 MG TAB PO SCH ×2 (09:11→21:06)
[2020-11-06] MEDS: ASCORBIC ACID 500 MG TAB PO SCH ×2 (09:11→21:05)
[2020-11-06] MEDS: DEXAMETHASONE 2 MG TAB PO SCH (09:11)
[2020-11-06] MEDS: guaiFENesin DM 200/20 MG ORAL LIQD 10 ML PO PRN ×2 (09:11→13:46)
[2020-11-06] MEDS: ASPIRIN 81 MG TAB CHEW PO SCH (09:12)
[2020-11-06] MEDS: CHOLECALCIFEROL (VIT D3) 5,000 UNIT TAB PO SCH (09:12)
[2020-11-06] MEDS: ZINC SULFATE 220 MG CAP PO SCH (09:13)
--- NOTE | 2020-11-06 10:12 | Progress Note ---
Assessment and Plan Cultures: SARS CoV2 PCR: Indeterminate here, positive as outpatient Blood culture: negative A/P: 44-year-old male with: #Bilateral pneumonia: Secondary to COVID-19. #Acute hypoxic respiratory failure: On HFNC #Transaminitis: Secondary to COVID-19. Stable. Recs: -continue IV/PO Dexamethasone x 10 days -Completed empiric antibiotics. -Completed remdesivir. -prophylactic anticoagulation based on d-dimer per hospital protocol -trend ferritin, LDH, d-dimer, CRP every 2-3 days for risk stratification and to assess disease progression Medhat Holland MD [facility] ([facility] O: [phone] F: [phone] Subjective Date of service: 11/06/20 Principal diagnosis: Acute hypoxemic resp failure; COVID-19; Pneumonia; Transaminitis; Anxiety Interval history: Afebrile, normal white count. No acute change. Objective - Exam Narrative Exam: Physical exam deferred to reduce risk of transmission of COVID-19. Please refer to primary team's note. - Constitutional Vitals: Vital Signs Temp Pulse Resp BP Pulse Ox 97.9 F 91 H 22 118/82 93 11/05/20 21:24 11/06/20 09:11 11/05/20 21:47 11/05/20 21:24 11/06/20 08:47 Temperature -Last 24 Hours Temperature 97.9 F Temperature 97.8 F Temperature 98.0 F - Labs CBC & Chem 7: 11/03/20 05:14 11/06/20 06:51 Labs: Abnormal lab results 11/06/20 Range/Units 06:51 Sodium 130 L (137-145) mmol/L Chloride 92.8 L (98-107) mmol/L Creatinine 0.6 L (0.8-1.3) mg/dL
[2020-11-06] MEDS: ACETAMINOPHEN 325 MG TAB PO PRN (13:03)
--- NOTE | 2020-11-06 15:59 | Progress Note ---
Assessment and Plan 44-year-old gentleman with no significant past medical history was brought to the emergency room 10/28/20 because of shortness of breath coughing and chest tightness, malaise and fatigue. Patient was diagnosed with Covid around 7 to 8 days ago. In the emergency room patient is found to have acute hypoxic respiratory failure and Covid pneumonia. On discussion patient spouse also was diagnosed with COVID-19 but with a more mild disease. There were plan to get the vaccine but got diagnosed with the disease prior. --Sepsis secondary to COVID19 --Acute hypoxic respiratory due to COVID-19 pneumonia --COVID19 Bilateral Pneumonia --Transaminitis due to COVID 19 --Persistent Cough --Anxiety Plan Continue supportive care, patient continues on high flow Oxygen now at 35 l/min. Continue dexamethasone 6 mg to complete 10 days. Remdesivir discontinued due to transaminitis being elevated Pulmonary consulted and input noted. ID input is appreciated. D-dimer 347.85 Blood cultures done 10/28/20, negative Started antitussives medication for cough Encourage prone positioning as tolerated Continue to monitor inflammatory markers DVT and GI prophylaxis Plan of care discussed with the patient and spouse in detail. Daily clinical course: 10/31/20 patient had chest pain last night, now resolved. Still complain of shortness of breath. No more fever. He also complain of insomnia and requesting sleep aid. he is still on HFNC at 35 l/min. Will repeat CXR today to re-evaluate Covid-19 pneumonia. I discussed plan with patient and on phone. 11/01 Patient with acute respiratory failure due to Covid-19 pneumonia. Still has shortness of breath so Oxygen increased to 40 l/min yesterday. CXR done yesterday was unchanged showing bilateral pneumonia. Pulmonology following. I discussed management plan with on the phone. 11/02 Patient with acute respiratory failure due to Covid-19 pneumonia. Still has shortness of breath. He was started on BIPAP yesterday but has not been tolerating it. He used BIPAP only few hours. I discussed with Nurse to inform [employer]. I discussed with on phone. 11/03 Patient with acute respiratory failure due to Covid-19 pneumonia. Still has shortness of breath. He was started on BIPAP on 11/01 but has not been tolerating it. He used BIPAP only few hours. I discussed with Nurse to inform [employer]. I discussed with on phone. Today. still has shortness of breath. Asking for soft diet and to sit in chair. Will repeat CXR in am 11/04: Patient remains on 65% FiO2 today, cont to follow inflammatory markers. Wean off O2 as tolerated. Continue steroids to complete 10 days course. 11/05: Remains on 65% FiO2, continue to follow inflammatory markers. Continue em piric steroid. Follow ID recommendation. Pulmonary critical care following. 11/06: cont supportive care, wean off O2 as tolerated. pt on 65% Fio2 high flow o2 Subjective Date of service: 11/06/20 Principal diagnosis: Acute hypoxemic resp failure; COVID-19; Pneumonia; Transaminitis; Anxiety Interval history: Patient seen and examined. Medical records and medication list reviewed. No acute event overnight noted by the RN. Patient complains of difficulty breathing. Remains on high flow O2 patient is tolerating diet. Discussed plan of care at bedside with patient. Objective - Exam Narrative Exam: Limited physical exam due to COVID-19 pandemic to minimize transmission of the disease and to preserve PPE. Vital reviewed and stable. GENERAL: well-developed well-nourished lying on bed appeared to be in no discomfort. HEENT: Normocephalic. Atraumatic. NECK: Supple. CHEST/LUNGS: breathing nonlabored. Patient on high flow O2, HEART/CARDIOVASCULAR: Heart rate stable on telemetry ABDOMEN: Visibly not distended SKIN: There is no rash NEURO: No focal motor deficit. Follows command. MUSCULOSKELETAL: No joint effusion EXTRIMITY: No swelling, no cyanosis or clubbing. PSYCH: Cooperative. - Constitutional Vitals: Vital Signs - 12hr 11/06/20 11/06/20 11/06/20 05:41 08:21 08:47 Temperature 97.4 F L Pulse Rate 90 Respiratory 18 Rate Blood Pressure 103/75 O2 Sat by Pulse 92 91 93 Oximetry 11/06/20 11/06/20 09:11 12:09 Temperature 100.9 F H Pulse Rate 91 H 101 H Respiratory 24 Rate Blood Pressure 113/79 O2 Sat by Pulse 93 Oximetry - Labs CBC & Chem 7: 11/03/20 05:14 11/06/20 06:51 Labs: Abnormal lab results 11/06/20 Range/Units 06:51 Sodium 130 L (137-145) mmol/L Chloride 92.8 L (98-107) mmol/L Creatinine 0.6 L (0.8-1.3) mg/dL HEART Score - HEART Score Troponin: Troponin T < 0.010 ng/mL (0.00-0.029) 10/31/20 17:45
--- NOTE | 2020-11-06 16:17 | Progress Note ---
Assessment and Plan Acute respiratory failure with hypoxia COVID-19 Pneumonia due to COVID-19 virus Transaminitis Anxiety - encouraged better BIPAP compliance - continue NIV qhs (prn daytime use) - continue care as below otherwise; - complete Remdesivir as per ID/Pulmonary developed protocols - complete systemic steroids for severe COVID-19 infection - follow repeat COVID tests results - zinc and vitamin C supplementation - Monitor inflammatory markers per facility protocol - ferritin, Ddimer, CRP - therapeutic anticoagulation per system Protocol based on d-dimer and clinical considerations (VTE prophylaxis now) - Continue contact and airborne isolation - continue to wean supplemental oxygen to keep O2 sats > 92% - continue Bronchodilators (ETELVINA) with pulm hygiene per RT - continue to avoid nephrotoxins, renally dose all medications - continue mobility protocols to prevent pressure ulcers - PT/OT as tolerated - Wound care per RN/WCT - continue accuchecks with glycemic control per SSI for target blood glucose < 180 mg/dL - tobacco abstinence strongly counseled at the bedside - home oxygen evaluation at discharge - GI & VTE prophylaxis - Flu & pneumovax per protocol - Pulmonary out patient follow up for PFTs and optimization of respiratory status - aspiration precautions - complete empiric AB's per ID rec's - prn analgesia per pain score - Maintenance of sleep-wake cycle, avoid delirium - Monitor hemodynamics closely - continue other care per attending / other consultants - discharge planning ongoing concurrently .... Re-evaluate in am & prn CONDITION: CRITICAL PROGNOSIS: GUARDED CODE STATUS: FULL CODE The high probability of a clinically significant, sudden or life-threatening de terioration of the [respiratory, cardiovascular, hematologic & neurologic] system(s) required my full and direct attention, intervention and personal management. The aggregate critical care time was [35] minutes without overlap. Time includes spent on; [x] Data Review and interpretation [x] Patient assessment and monitoring of vital signs [x] Documentation [x] Medication orders and management Subjective Date of service: 11/06/20 Principal diagnosis: Acute hypoxemic resp failure; COVID-19; Pneumonia; Transaminitis; Anxiety Interval history: Patient is seen today for: Acute hypoxemic respiratory failure; COVID-19; Pneumonia; Transaminitis; Anxiety Seen and examined at bedside; 24hour events reviewed; nursing and respiratory care staff consulted; no adverse overnight events reported to me; resting in bed; no N/V/F/C; still SOB; BIPAP compliance poor; no emesis or overt aspiration Objective Vital Signs - 12hr 11/06/20 11/06/20 11/06/20 05:41 08:21 08:47 Temperature 97.4 F L Pulse Rate 90 Respiratory 18 Rate Blood Pressure 103/75 O2 Sat by Pulse 92 91 93 Oximetry 11/06/20 11/06/20 09:11 12:09 Temperature 100.9 F H Pulse Rate 91 H 101 H Respiratory 24 Rate Blood Pressure 113/79 O2 Sat by Pulse 93 Oximetry Constitutional: alert, other (middle aged male with mildly increase respiratory effort at rest) Eyes: non-icteric ENT: oropharynx moist Neck: supple, no lymphadenopathy, no JVD Effort: mildly labored Ascultation: Bilateral: rales (bases; inspiratory) Percussion: Bilateral: not dull Cardiovascular: regular rate and rhythm Gastrointestinal: normoactive bowel sounds, soft, non-tender, non-distended Integumentary: normal Extremities: no cyanosis, no edema, pulses normal, no ischemia or petechiae Neurologic: normal mental status, non-focal exam, pupils equal and round, CN II- XII normal Psychiatric: mood appropriate, affect normal CBC and BMP: 11/03/20 05:14 11/06/20 06:51 ABG, PT/INR, D-dimer: ABG ABG pH 7.467 (7.320-7.450) H 10/30/20 16:15 POC ABG pCO2 31.8 mmHg (32.0-48.0) L 10/30/20 16:15 POC ABG pO2 67.8 mmHg (83-108) L 10/30/20 16:15 POC ABG HCO3 22.5 10/30/20 16:15 ABG O2 Saturation 93.1 (0-100) 10/30/20 16:15 PT/INR, D-dimer PT 13.2 Sec. (12.2-14.9) 10/28/20 01:58 INR 1.01 (0.87-1.13) 10/28/20 01:58 D-Dimer 496.75 ng/mlDDU (0-234) H 11/03/20 05:14 Abnormal lab findings: Abnormal Labs 10/28/20 10/28/20 10/28/20 01:58 01:58 01:58 Hgb 15.4 H MCH 33 H MCHC 36 H Plt Count Lymph % (Auto) Lymph # (Auto) Seg Neutrophils % Seg Neuts % (Manual) 97.0 H Lymphocytes % (Manual) 1.0 L Seg Neutrophils # Man 10.7 H Lymphocytes # (Manual) 0.1 L D-Dimer ABG pH POC ABG pCO2 POC ABG pO2 ABG Oxyhemoglobin ABG Sodium ABG Glucose Sodium 135 L Chloride 96.1 L BUN 8 L Creatinine 0.6 L Glucose 130 H Calcium Ferritin AST 45 H ALT 69 H Alkaline Phosphatase 189 H Lactate Dehydrogenase 339 H C-Reactive Protein 32.80 H NT-Pro-B Natriuret Pep Albumin 3.6 L Arterial Blood Glucose Coronavirus (PCR) 10/28/20 10/28/20 10/28/20 01:58 01:58 13:48 Hgb MCH MCHC Plt Count Lymph % (Auto) Lymph # (Auto) Seg Neutrophils % Seg Neuts % (Manual) Lymphocytes % (Manual) Seg Neutrophils # Man Lymphocytes # (Manual) D-Dimer ABG pH POC ABG pCO2 POC ABG pO2 ABG Oxyhemoglobin ABG Sodium ABG Glucose Sodium 134 L Chloride 96.2 L BUN Creatinine 0.6 L Glucose 159 H Calcium Ferritin 1631.0 H AST 41 H ALT 59 H Alkaline Phosphatase 187 H Lactate Dehydrogenase C-Reactive Protein NT-Pro-B Natriuret Pep 1661 H Albumin 3.6 L Arterial Blood Glucose Coronavirus (PCR) 10/29/20 10/29/20 10/29/20 05:50 05:50 05:50 Hgb MCH MCHC 36 H Plt Count Lymph % (Auto) 5.8 L Lymph # (Auto) 0.4 L Seg Neutrophils % 87.8 H Seg Neuts % (Manual) Lymphocytes % (Manual) Seg Neutrophils # Man Lymphocytes # (Manual) D-Dimer ABG pH POC ABG pCO2 POC ABG pO2 ABG Oxyhemoglobin ABG Sodium ABG Glucose Sodium Chloride BUN Creatinine 0.6 L Glucose 143 H Calcium Ferritin AST 59 H ALT 71 H Alkaline Phosphatase 159 H Lactate Dehydrogenase C-Reactive Protein 19.90 H NT-Pro-B Natriuret Pep Albumin 3.0 L Arterial Blood Glucose Coronavirus (PCR) 10/29/20 10/30/20 10/30/20 Unknown 05:46 05:46 Hgb MCH MCHC Plt Count Lymph % (Auto) Lymph # (Auto) Seg Neutrophils % Seg Neuts % (Manual) Lymphocytes % (Manual) Seg Neutrophils # Man Lymphocytes # (Manual) D-Dimer 347.85 H ABG pH POC ABG pCO2 POC ABG pO2 ABG Oxyhemoglobin ABG Sodium ABG Glucose Sodium Chloride BUN Creatinine 0.6 L Glucose 133 H Calcium 8.3 L Ferritin AST 52 H ALT 82 H Alkaline Phosphatase 144 H Lactate Dehydrogenase C-Reactive Protein NT-Pro-B Natriuret Pep Albumin 3.1 L Arterial Blood Glucose Coronavirus (PCR) Positive A 10/30/20 10/30/20 10/30/20 05:46 05:46 16:15 Hgb MCH MCHC Plt Count Lymph % (Auto) Lymph # (Auto) Seg Neutrophils % Seg Neuts % (Manual) Lymphocytes % (Manual) Seg Neutrophils # Man Lymphocytes # (Manual) D-Dimer ABG pH 7.467 H POC ABG pCO2 31.8 L POC ABG pO2 67.8 L ABG Oxyhemoglobin 92.3 L ABG Sodium 133.7 L ABG Glucose 145 H Sodium Chloride BUN Creatinine Glucose 133 H Calcium Ferritin 1775.0 H AST ALT Alkaline Phosphatase Lactate Dehydrogenase 302 H C-Reactive Protein NT-Pro-B Natriuret Pep Albumin Arterial Blood Glucose 145 H Coronavirus (PCR) 10/31/20 11/01/20 11/01/20 05:15 06:27 06:27 Hgb MCH MCHC Plt Count Lymph % (Auto) Lymph # (Auto) Seg Neutrophils % Seg Neuts % (Manual) Lymphocytes % (Manual) Seg Neutrophils # Man Lymphocytes # (Manual) D-Dimer 406.47 H ABG pH POC ABG pCO2 POC ABG pO2 ABG Oxyhemoglobin ABG Sodium ABG Glucose Sodium 136 L Chloride BUN 21 H Creatinine 0.6 L Glucose Calcium 8.0 L Ferritin AST 61 H ALT 147 H Alkaline Phosphatase 148 H Lactate Dehydrogenase 303 H C-Reactive Protein NT-Pro-B Natriuret Pep Albumin 3.2 L Arterial Blood Glucose Coronavirus (PCR) 11/01/20 11/03/20 11/03/20 06:27 05:14 05:14 Hgb MCH MCHC Plt Count Lymph % (Auto) Lymph # (Auto) Seg Neutrophils % Seg Neuts % (Manual) Lymphocytes % (Manual) Seg Neutrophils # Man Lymphocytes # (Manual) D-Dimer 496.75 H ABG pH POC ABG pCO2 POC ABG pO2 ABG Oxyhemoglobin ABG Sodium ABG Glucose Sodium 134 L Chloride 96.3 L BUN Creatinine 0.4 L Glucose 110 H Calcium Ferritin 1667.0 H AST ALT Alkaline Phosphatase Lactate Dehydrogenase 404 H C-Reactive Protein NT-Pro-B Natriuret Pep Albumin Arterial Blood Glucose Coronavirus (PCR) 11/03/20 11/03/20 11/06/20 05:14 05:14 06:51 Hgb 15.8 H MCH 33 H MCHC 36 H Plt Count 648 H Lymph % (Auto) Lymph # (Auto) Seg Neutrophils % Seg Neuts % (Manual) Lymphocytes % (Manual) Seg Neutrophils # Man Lymphocytes # (Manual) D-Dimer ABG pH POC ABG pCO2 POC ABG pO2 ABG Oxyhemoglobin ABG Sodium ABG Glucose Sodium 130 L Chloride 92.8 L BUN Creatinine 0.6 L Glucose Calcium Ferritin 1631.0 H AST ALT Alkaline Phosphatase Lactate Dehydrogenase C-Reactive Protein NT-Pro-B Natriuret Pep Albumin Arterial Blood Glucose Coronavirus (PCR) Chest x-ray: image reviewed (persistent bilateral infiltrates) Allied health notes reviewed: nursing
[2020-11-07] MEDS: HYDROcodone/HOMATROPINE 5-1.5MG /5 ML ORAL LIQD UNIT DOSE PO PRN (04:25)
[2020-11-07] MEDS: HEPARIN 5,000 UNIT/1 ML VIAL SUB-Q SCH ×3 (05:45→21:22)
[2020-11-07] MEDS: ZINC SULFATE 220 MG CAP PO SCH (09:03)
[2020-11-07] MEDS: CHOLECALCIFEROL (VIT D3) 5,000 UNIT TAB PO SCH (09:03)
[2020-11-07] MEDS: ASPIRIN 81 MG TAB CHEW PO SCH (09:03)
[2020-11-07] MEDS: ASCORBIC ACID 500 MG TAB PO SCH ×2 (09:03→21:22)
[2020-11-07] MEDS: PANTOPRAZOLE 40 MG TAB PO SCH (09:03)
[2020-11-07] MEDS: METOPROLOL TARTRATE 25 MG TAB PO SCH ×2 (09:04→21:24)
--- NOTE | 2020-11-07 10:52 | Progress Note ---
Assessment and Plan Cultures: SARS CoV2 PCR: Indeterminate here, positive as outpatient Blood culture: negative A/P: 44-year-old male with: #Bilateral pneumonia: Secondary to COVID-19. #Acute hypoxic respiratory failure: On HFNC #Transaminitis: Secondary to COVID-19. Stable. Recs: -continue IV/PO Dexamethasone x 10 days -Completed empiric antibiotics. -Completed remdesivir. -prophylactic anticoagulation based on d-dimer per hospital protocol -trend ferritin, LDH, d-dimer, CRP every 2-3 days for risk stratification and to assess disease progression Medhat Holland MD [facility] O: [phone] F: [phone] Subjective Date of service: 11/07/20 Principal diagnosis: Acute hypoxemic resp failure; COVID-19; Pneumonia; Transaminitis; Anxiety Interval history: Febrile last night, though he has been afebrile for the entirety of his admission otherwise. Normal white count. Remains on HFNC Objective - Exam Narrative Exam: Physical exam deferred to reduce risk of transmission of COVID-19. Please refer to primary team's note. - Constitutional Vitals: Vital Signs Temp Pulse Resp BP Pulse Ox 97.8 F 94 H 24 112/77 93 11/07/20 04:02 11/07/20 04:02 11/07/20 04:02 11/07/20 04:02 11/07/20 08:00 Temperature -Last 24 Hours Temperature 97.8 F Temperature 97.9 F Temperature 97.7 F Temperature 100.9 F - Labs CBC & Chem 7: 11/03/20 05:14 11/06/20 06:51
--- NOTE | 2020-11-07 13:23 | Progress Note ---
Assessment and Plan Acute respiratory failure with hypoxia COVID-19 Pneumonia due to COVID-19 virus Transaminitis Anxiety - continue NIV qhs - continue care as below otherwise; - continue Remdesivir as per ID/Pulmonary developed protocols - continue systemic steroids for severe COVID-19 infection - follow repeat COVID tests results - zinc and vitamin C supplementation - Monitor inflammatory markers per facility protocol - ferritin, Ddimer, CRP - therapeutic anticoagulation per system Protocol based on d-dimer and clinical considerations (VTE prophylaxis now) - Continue contact and airborne isolation - continue to wean supplemental oxygen to keep O2 sats > 92% - continue Bronchodilators (ETELVINA) with pulm hygiene per RT - continue to avoid nephrotoxins, renally dose all medications - continue mobility protocols to prevent pressure ulcers - PT/OT as tolerated - Wound care per RN/WCT - continue accuchecks with glycemic control per SSI for target blood glucose < 180 mg/dL - tobacco abstinence strongly counseled at the bedside - home oxygen evaluation at discharge - GI & VTE prophylaxis - Flu & pneumovax per protocol - Pulmonary out patient follow up for PFTs and optimization of respiratory status - aspiration precautions - complete empiric AB's per ID rec's - prn analgesia per pain score - Maintenance of sleep-wake cycle, avoid delirium - Monitor hemodynamics closely - continue other care per attending / other consultants - discharge planning ongoing concurrently .... Re-evaluate in am & prn CONDITION: CRITICAL PROGNOSIS: GUARDED CODE STATUS: FULL CODE The high probability of a clinically significant, sudden or life-threatening deterioration of the [respiratory, cardiovascular, hematologic & neurologic] system(s) required my full and direct attention, intervention and personal manag ement. The aggregate critical care time was [32] minutes without overlap. Time includes spent on; [x] Data Review and interpretation [x] Patient assessment and monitoring of vital signs [x] Documentation [x] Medication orders and management Subjective Date of service: 11/07/20 Principal diagnosis: Acute hypoxemic resp failure; COVID-19; Pneumonia; Transaminitis; Anxiety Interval history: Patient is seen today for: Acute hypoxemic respiratory failure; COVID-19; Pneumonia; Transaminitis; Anxiety Seen and examined at bedside; 24hour events reviewed; nursing and respiratory care staff consulted; no adverse overnight events reported to me; resting in bed; no N/V/F/C; SOB earlier but refused BIPAP support; FiO2 at 70% & 40L flow via vapotherm Objective Vital Signs - 12hr 11/07/20 11/07/20 11/07/20 02:00 04:02 08:00 Temperature 97.8 F Pulse Rate 94 H Respiratory 24 20 Rate Blood Pressure 112/77 O2 Sat by Pulse 97 89 85 Oximetry Constitutional: alert, other (middle aged male with mildfly increase respiratory effort at rest) Eyes: non-icteric ENT: oropharynx moist Neck: supple, no lymphadenopathy, no JVD Effort: mildly labored Ascultation: Bilateral: rales (bases; inspiratory) Percussion: Bilateral: not dull Cardiovascular: regular rate and rhythm Gastrointestinal: normoactive bowel sounds, soft, non-tender, non-distended Integumentary: normal Extremities: no cyanosis, no edema, pulses normal, no ischemia or petechiae Neurologic: normal mental status, non-focal exam, pupils equal and round, CN II- XII normal Psychiatric: mood appropriate, affect normal CBC and BMP: 11/03/20 05:14 11/06/20 06:51 ABG, PT/INR, D-dimer: ABG ABG pH 7.467 (7.320-7.450) H 10/30/20 16:15 POC ABG pCO2 31.8 mmHg (32.0-48.0) L 10/30/20 16:15 POC ABG pO2 67.8 mmHg (83-108) L 10/30/20 16:15 POC ABG HCO3 22.5 10/30/20 16:15 ABG O2 Saturation 93.1 (0-100) 10/30/20 16:15 PT/INR, D-dimer PT 13.2 Sec. (12.2-14.9) 10/28/20 01:58 INR 1.01 (0.87-1.13) 10/28/20 01:58 D-Dimer 496.75 ng/mlDDU (0-234) H 11/03/20 05:14 Abnormal lab findings: Abnormal Labs 10/28/20 10/28/20 10/28/20 01:58 01:58 01:58 Hgb 15.4 H MCH 33 H MCHC 36 H Plt Count Lymph % (Auto) Lymph # (Auto) Seg Neutrophils % Seg Neuts % (Manual) 97.0 H Lymphocytes % (Manual) 1.0 L Seg Neutrophils # Man 10.7 H Lymphocytes # (Manual) 0.1 L D-Dimer ABG pH POC ABG pCO2 POC ABG pO2 ABG Oxyhemoglobin ABG Sodium ABG Glucose Sodium 135 L Chloride 96.1 L BUN 8 L Creatinine 0.6 L Glucose 130 H Calcium Ferritin AST 45 H ALT 69 H Alkaline Phosphatase 189 H Lactate Dehydrogenase 339 H C-Reactive Protein 32.80 H NT-Pro-B Natriuret Pep Albumin 3.6 L Arterial Blood Glucose Coronavirus (PCR) 10/28/20 10/28/20 10/28/20 01:58 01:58 13:48 Hgb MCH MCHC Plt Count Lymph % (Auto) Lymph # (Auto) Seg Neutrophils % Seg Neuts % (Manual) Lymphocytes % (Manual) Seg Neutrophils # Man Lymphocytes # (Manual) D-Dimer ABG pH POC ABG pCO2 POC ABG pO2 ABG Oxyhemoglobin ABG Sodium ABG Glucose Sodium 134 L Chloride 96.2 L BUN Creatinine 0.6 L Glucose 159 H Calcium Ferritin 1631.0 H AST 41 H ALT 59 H Alkaline Phosphatase 187 H Lactate Dehydrogenase C-Reactive Protein NT-Pro-B Natriuret Pep 1661 H Albumin 3.6 L Arterial Blood Glucose Coronavirus (PCR) 10/29/20 10/29/20 10/29/20 05:50 05:50 05:50 Hgb MCH MCHC 36 H Plt Count Lymph % (Auto) 5.8 L Lymph # (Auto) 0.4 L Seg Neutrophils % 87.8 H Seg Neuts % (Manual) Lymphocytes % (Manual) Seg Neutrophils # Man Lymphocytes # (Manual) D-Dimer ABG pH POC ABG pCO2 POC ABG pO2 ABG Oxyhemoglobin ABG Sodium ABG Glucose Sodium Chloride BUN Creatinine 0.6 L Glucose 143 H Calcium Ferritin AST 59 H ALT 71 H Alkaline Phosphatase 159 H Lactate Dehydrogenase C-Reactive Protein 19.90 H NT-Pro-B Natriuret Pep Albumin 3.0 L Arterial Blood Glucose Coronavirus (PCR) 10/29/20 10/30/20 10/30/20 Unknown 05:46 05:46 Hgb MCH MCHC Plt Count Lymph % (Auto) Lymph # (Auto) Seg Neutrophils % Seg Neuts % (Manual) Lymphocytes % (Manual) Seg Neutrophils # Man Lymphocytes # (Manual) D-Dimer 347.85 H ABG pH POC ABG pCO2 POC ABG pO2 ABG Oxyhemoglobin ABG Sodium ABG Glucose Sodium Chloride BUN Creatinine 0.6 L Glucose 133 H Calcium 8.3 L Ferritin AST 52 H ALT 82 H Alkaline Phosphatase 144 H Lactate Dehydrogenase C-Reactive Protein NT-Pro-B Natriuret Pep Albumin 3.1 L Arterial Blood Glucose Coronavirus (PCR) Positive A 10/30/20 10/30/20 10/30/20 05:46 05:46 16:15 Hgb MCH MCHC Plt Count Lymph % (Auto) Lymph # (Auto) Seg Neutrophils % Seg Neuts % (Manual) Lymphocytes % (Manual) Seg Neutrophils # Man Lymphocytes # (Manual) D-Dimer ABG pH 7.467 H POC ABG pCO2 31.8 L POC ABG pO2 67.8 L ABG Oxyhemoglobin 92.3 L ABG Sodium 133.7 L ABG Glucose 145 H Sodium Chloride BUN Creatinine Glucose 133 H Calcium Ferritin 1775.0 H AST ALT Alkaline Phosphatase Lactate Dehydrogenase 302 H C-Reactive Protein NT-Pro-B Natriuret Pep Albumin Arterial Blood Glucose 145 H Coronavirus (PCR) 10/31/20 11/01/20 11/01/20 05:15 06:27 06:27 Hgb MCH MCHC Plt Count Lymph % (Auto) Lymph # (Auto) Seg Neutrophils % Seg Neuts % (Manual) Lymphocytes % (Manual) Seg Neutrophils # Man Lymphocytes # (Manual) D-Dimer 406.47 H ABG pH POC ABG pCO2 POC ABG pO2 ABG Oxyhemoglobin ABG Sodium ABG Glucose Sodium 136 L Chloride BUN 21 H Creatinine 0.6 L Glucose Calcium 8.0 L Ferritin AST 61 H ALT 147 H Alkaline Phosphatase 148 H Lactate Dehydrogenase 303 H C-Reactive Protein NT-Pro-B Natriuret Pep Albumin 3.2 L Arterial Blood Glucose Coronavirus (PCR) 11/01/20 11/03/20 11/03/20 06:27 05:14 05:14 Hgb MCH MCHC Plt Count Lymph % (Auto) Lymph # (Auto) Seg Neutrophils % Seg Neuts % (Manual) Lymphocytes % (Manual) Seg Neutrophils # Man Lymphocytes # (Manual) D-Dimer 496.75 H ABG pH POC ABG pCO2 POC ABG pO2 ABG Oxyhemoglobin ABG Sodium ABG Glucose Sodium 134 L Chloride 96.3 L BUN Creatinine 0.4 L Glucose 110 H Calcium Ferritin 1667.0 H AST ALT Alkaline Phosphatase Lactate Dehydrogenase 404 H C-Reactive Protein NT-Pro-B Natriuret Pep Albumin Arterial Blood Glucose Coronavirus (PCR) 11/03/20 11/03/20 11/06/20 05:14 05:14 06:51 Hgb 15.8 H MCH 33 H MCHC 36 H Plt Count 648 H Lymph % (Auto) Lymph # (Auto) Seg Neutrophils % Seg Neuts % (Manual) Lymphocytes % (Manual) Seg Neutrophils # Man Lymphocytes # (Manual) D-Dimer ABG pH POC ABG pCO2 POC ABG pO2 ABG Oxyhemoglobin ABG Sodium ABG Glucose Sodium 130 L Chloride 92.8 L BUN Creatinine 0.6 L Glucose Calcium Ferritin 1631.0 H AST ALT Alkaline Phosphatase Lactate Dehydrogenase C-Reactive Protein NT-Pro-B Natriuret Pep Albumin Arterial Blood Glucose Coronavirus (PCR) Allied health notes reviewed: nursing
--- NOTE | 2020-11-07 15:02 | Progress Note ---
Assessment and Plan 44-year-old gentleman with no significant past medical history was brought to the emergency room 10/28/20 because of shortness of breath coughing and chest tightness, malaise and fatigue. Patient was diagnosed with Covid around 7 to 8 days ago. In the emergency room patient is found to have acute hypoxic respiratory failure and Covid pneumonia. On discussion patient spouse also was diagnosed with COVID-19 but with a more mild disease. There were plan to get the vaccine but got diagnosed with the disease prior. --Sepsis secondary to COVID19 --Acute hypoxic respiratory due to COVID-19 pneumonia --COVID19 Bilateral Pneumonia --Transaminitis due to COVID 19 --Persistent Cough --Anxiety Plan Continue supportive care, patient continues on high flow Oxygen now at 35 l/min. Continue dexamethasone 6 mg to complete 10 days. Remdesivir discontinued due to transaminitis being elevated Pulmonary consulted and input noted. ID input is appreciated. D-dimer 347.85 Blood cultures done 10/28/20, negative Started antitussives medication for cough Encourage prone positioning as tolerated Continue to monitor inflammatory markers DVT and GI prophylaxis Plan of care discussed with the patient and spouse in detail. Daily clinical course: 10/31/20 patient had chest pain last night, now resolved. Still complain of shortness of breath. No more fever. He also complain of insomnia and requesting sleep aid. he is still on HFNC at 35 l/min. Will repeat CXR today to re-evaluate Covid-19 pneumonia. I discussed plan with patient and on phone. 11/01 Patient with acute respiratory failure due to Covid-19 pneumonia. Still has shortness of breath so Oxygen increased to 40 l/min yesterday. CXR done yesterday was unchanged showing bilateral pneumonia. Pulmonology following. I discussed management plan with on the phone. 11/02 Patient with acute respiratory failure due to Covid-19 pneumonia. Still has shortness of breath. He was started on BIPAP yesterday but has not been tolerating it. He used BIPAP only few hours. I discussed with Nurse to inform [facility] Attendant. I discussed with on phone. 11/03 Patient with acute respiratory failure due to Covid-19 pneumonia. Still has shortness of breath. He was started on BIPAP on 11/01 but has not been tolerating it. He used BIPAP only few hours. I discussed with Nurse to inform Welcome Center Attendant. I discussed with on phone. Today. still has shortness of breath. Asking for soft diet and to sit in chair. Will repeat CXR in am 11/04: Patient remains on 65% FiO2 today, cont to follow inflammatory markers. Wean off O2 as tolerated. Continue steroids to complete 10 days course. 11/05: Remains on 65% FiO2, continue to follow inflammatory markers. Continue em piric steroid. Follow ID recommendation. Pulmonary critical care following. 11/06: cont supportive care, wean off O2 as tolerated. pt on 65% Fio2 high flow o2 11/07: Remains on high flow O2, unable to wean off. called but unable to reach out to her. cont supportive care, completed empiric steroid. Subjective Date of service: 11/07/20 Principal diagnosis: Acute hypoxemic resp failure; COVID-19; Pneumonia; Transaminitis; Anxiety Interval history: Patient seen and examined. Medical records and medication list reviewed. No acute event overnight noted by the RN. Patient complains of difficulty breathing. Remains on high flow O2 patient is tolerating diet. Discussed plan of care at bedside with patient. Objective - Exam Narrative Exam: Limited physical exam due to COVID-19 pandemic to minimize transmission of the disease and to preserve PPE. Vital reviewed and stable. GENERAL: well-developed well-nourished lying on bed appeared to be in no discomfort. HEENT: Normocephalic. Atraumatic. NECK: Supple. CHEST/LUNGS: breathing nonlabored. Patient on high flow O2, HEART/CARDIOVASCULAR: Heart rate stable on telemetry ABDOMEN: Visibly not distended SKIN: There is no rash NEURO: No focal motor deficit. Follows command. MUSCULOSKELETAL: No joint effusion EXTRIMITY: No swelling, no cyanosis or clubbing. PSYCH: Cooperative. - Constitutional Vitals: Vital Signs - 12hr 11/07/20 11/07/20 11/07/20 04:02 08:00 09:14 Temperature 97.8 F Pulse Rate 94 H 106 H Respiratory 24 20 Rate Blood Pressure 112/77 121/76 O2 Sat by Pulse 89 85 95 Oximetry 11/07/20 11:27 Temperature 97.7 F Pulse Rate 114 H Respiratory 22 Rate Blood Pressure 110/75 O2 Sat by Pulse 98 Oximetry - Labs CBC & Chem 7: 11/03/20 05:14 11/06/20 06:51 HEART Score - HEART Score Troponin: Troponin T < 0.010 ng/mL (0.00-0.029) 10/31/20 17:45
[2020-11-07] MEDS: guaiFENesin DM 200/20 MG ORAL LIQD 10 ML PO PRN (21:33)
[2020-11-08] MEDS: HYDROcodone/HOMATROPINE 5-1.5MG /5 ML ORAL LIQD UNIT DOSE PO PRN (03:57)
[2020-11-08] MEDS: HEPARIN 5,000 UNIT/1 ML VIAL SUB-Q SCH ×3 (05:27→22:09)
[2020-11-08] MEDS: PANTOPRAZOLE 40 MG TAB PO SCH (08:14)
[2020-11-08] MEDS: ASPIRIN 81 MG TAB CHEW PO SCH (10:32)
[2020-11-08] MEDS: METOPROLOL TARTRATE 25 MG TAB PO SCH ×2 (10:33→22:08)
[2020-11-08] MEDS: ASCORBIC ACID 500 MG TAB PO SCH ×2 (10:34→22:09)
[2020-11-08] MEDS: CHOLECALCIFEROL (VIT D3) 5,000 UNIT TAB PO SCH (10:35)
[2020-11-08] MEDS: ZINC SULFATE 220 MG CAP PO SCH (10:36)
--- NOTE | 2020-11-08 14:10 | Progress Note ---
Assessment and Plan Acute respiratory failure with hypoxia COVID-19 Pneumonia due to COVID-19 virus Transaminitis Anxiety - continue NIV qhs (I have asked RT to add humidifier and he agrees to use >/= 6 hours qhs) - repeat ABG now and address - will transfer to [facility] [place] for closer observation - continue care as below otherwise; - continue Remdesivir as per ID/Pulmonary developed protocols - continue systemic steroids for severe COVID-19 infection - follow repeat COVID tests results - zinc and vitamin C supplementation - Monitor inflammatory markers per facility protocol - ferritin, Ddimer, CRP - therapeutic anticoagulation per system Protocol based on d-dimer and clinical considerations (VTE prophylaxis now) - Continue contact and airborne isolation - continue to wean supplemental oxygen to keep O2 sats > 92% - continue Bronchodilators (ETELVINA) with pulm hygiene per RT - continue to avoid nephrotoxins, renally dose all medications - continue mobility protocols to prevent pressure ulcers - PT/OT as tolerated - Wound care per RN/WCT - continue accuchecks with glycemic control per SSI for target blood glucose < 180 mg/dL - tobacco abstinence strongly counseled at the bedside - home oxygen evaluation at discharge - GI & VTE prophylaxis - Flu & pneumovax per protocol - Pulmonary out patient follow up for PFTs and optimization of respiratory status - aspiration precautions - complete empiric AB's per ID rec's - prn analgesia per pain score - Maintenance of sleep-wake cycle, avoid delirium - Monitor hemodynamics closely - continue other care per attending / other consultants - discharge planning ongoing concurrently .... Re-evaluate in am & prn CONDITION: CRITICAL PROGNOSIS: GUARDED CODE STATUS: FULL CODE The high probability of a clinically significant, sudden or life-threatening deterioration of the [respiratory, cardiovascular, hematologic & neurologic] system(s) required my full and direct attention, intervention and personal management. The aggregate critical care time was [35] minutes without overlap. Time includes spent on; [x] Data Review and interpretation [x] Patient assessment and monitoring of vital signs [x] Documentation [x] Medication orders and management Subjective Date of service: 11/08/20 Principal diagnosis: Acute hypoxemic resp failure; COVID-19; Pneumonia; Transaminitis; Anxiety Interval history: Patient is seen today for: Acute hypoxemic respiratory failure; COVID-19; Pneumonia; Transaminitis; Anxiety Seen and examined at bedside; 24hour events reviewed; nursing and respiratory care staff consulted; no adverse overnight events reported to me; resting in bed; no N/V/F/C; work of breathing overall increased; he was on the phone with his at the time of my visit and asked me to talk to her. She states that he has refused BIPAP because it makes his throat dry; he also complained of some chest pain with that; he denies hemoptysis Objective Vital Signs - 12hr 11/08/20 11/08/20 11/08/20 03:46 03:48 03:50 Temperature Pulse Rate 129 H 127 H Respiratory Rate Blood Pressure Blood Pressure [Left] O2 Sat by Pulse 95 94 97 Oximetry 11/08/20 11/08/20 11/08/20 03:53 08:00 10:33 Temperature 97.3 F L Pulse Rate 120 H Respiratory 20 Rate Blood Pressure 120/68 Blood Pressure 111/80 [Left] O2 Sat by Pulse 94 95 Oximetry 11/08/20 12:16 Temperature 100.1 F H Pulse Rate 108 H Respiratory 16 Rate Blood Pressure 110/74 Blood Pressure [Left] O2 Sat by Pulse 95 Oximetry Constitutional: alert, appears uncomfortable, other (middle aged male with mildfly increase respiratory effort at rest) Eyes: non-icteric ENT: oropharynx dry Neck: supple, no lymphadenopathy, no JVD Effort: mildly labored Ascultation: Bilateral: rales (bases; inspiratory) Percussion: Bilateral: not dull Cardiovascular: regular rate and rhythm Gastrointestinal: normoactive bowel sounds, soft, non-tender, non-distended Integumentary: normal Extremities: no cyanosis, no edema, pulses normal, no ischemia or petechiae Neurologic: normal mental status, non-focal exam, pupils equal and round, CN II- XII normal Psychiatric: mood appropriate, anxious CBC and BMP: 11/03/20 05:14 11/08/20 14:29 ABG, PT/INR, D-dimer: ABG ABG pH 7.467 (7.320-7.450) H 10/30/20 16:15 POC ABG pCO2 31.8 mmHg (32.0-48.0) L 10/30/20 16:15 POC ABG pO2 67.8 mmHg (83-108) L 10/30/20 16:15 POC ABG HCO3 22.5 10/30/20 16:15 ABG O2 Saturation 93.1 (0-100) 10/30/20 16:15 PT/INR, D-dimer PT 13.2 Sec. (12.2-14.9) 10/28/20 01:58 INR 1.01 (0.87-1.13) 10/28/20 01:58 D-Dimer 496.75 ng/mlDDU (0-234) H 11/03/20 05:14 Abnormal lab findings: Abnormal Labs 10/28/20 10/28/20 10/28/20 01:58 01:58 01:58 Hgb 15.4 H MCH 33 H MCHC 36 H Plt Count Lymph % (Auto) Lymph # (Auto) Seg Neutrophils % Seg Neuts % (Manual) 97.0 H Lymphocytes % (Manual) 1.0 L Seg Neutrophils # Man 10.7 H Lymphocytes # (Manual) 0.1 L D-Dimer ABG pH POC ABG pCO2 POC ABG pO2 ABG Oxyhemoglobin ABG Sodium ABG Glucose Sodium 135 L Chloride 96.1 L BUN 8 L Creatinine 0.6 L Glucose 130 H Calcium Ferritin AST 45 H ALT 69 H Alkaline Phosphatase 189 H Lactate Dehydrogenase 339 H C-Reactive Protein 32.80 H NT-Pro-B Natriuret Pep Albumin 3.6 L Arterial Blood Glucose Coronavirus (PCR) 10/28/20 10/28/20 10/28/20 01:58 01:58 13:48 Hgb MCH MCHC Plt Count Lymph % (Auto) Lymph # (Auto) Seg Neutrophils % Seg Neuts % (Manual) Lymphocytes % (Manual) Seg Neutrophils # Man Lymphocytes # (Manual) D-Dimer ABG pH POC ABG pCO2 POC ABG pO2 ABG Oxyhemoglobin ABG Sodium ABG Glucose Sodium 134 L Chloride 96.2 L BUN Creatinine 0.6 L Glucose 159 H Calcium Ferritin 1631.0 H AST 41 H ALT 59 H Alkaline Phosphatase 187 H Lactate Dehydrogenase C-Reactive Protein NT-Pro-B Natriuret Pep 1661 H Albumin 3.6 L Arterial Blood Glucose Coronavirus (PCR) 10/29/20 10/29/20 10/29/20 05:50 05:50 05:50 Hgb MCH MCHC 36 H Plt Count Lymph % (Auto) 5.8 L Lymph # (Auto) 0.4 L Seg Neutrophils % 87.8 H Seg Neuts % (Manual) Lymphocytes % (Manual) Seg Neutrophils # Man Lymphocytes # (Manual) D-Dimer ABG pH POC ABG pCO2 POC ABG pO2 ABG Oxyhemoglobin ABG Sodium ABG Glucose Sodium Chloride BUN Creatinine 0.6 L Glucose 143 H Calcium Ferritin AST 59 H ALT 71 H Alkaline Phosphatase 159 H Lactate Dehydrogenase C-Reactive Protein 19.90 H NT-Pro-B Natriuret Pep Albumin 3.0 L Arterial Blood Glucose Coronavirus (PCR) 10/29/20 10/30/20 10/30/20 Unknown 05:46 05:46 Hgb MCH MCHC Plt Count Lymph % (Auto) Lymph # (Auto) Seg Neutrophils % Seg Neuts % (Manual) Lymphocytes % (Manual) Seg Neutrophils # Man Lymphocytes # (Manual) D-Dimer 347.85 H ABG pH POC ABG pCO2 POC ABG pO2 ABG Oxyhemoglobin ABG Sodium ABG Glucose Sodium Chloride BUN Creatinine 0.6 L Glucose 133 H Calcium 8.3 L Ferritin AST 52 H ALT 82 H Alkaline Phosphatase 144 H Lactate Dehydrogenase C-Reactive Protein NT-Pro-B Natriuret Pep Albumin 3.1 L Arterial Blood Glucose Coronavirus (PCR) Positive A 10/30/20 10/30/20 10/30/20 05:46 05:46 16:15 Hgb MCH MCHC Plt Count Lymph % (Auto) Lymph # (Auto) Seg Neutrophils % Seg Neuts % (Manual) Lymphocytes % (Manual) Seg Neutrophils # Man Lymphocytes # (Manual) D-Dimer ABG pH 7.467 H POC ABG pCO2 31.8 L POC ABG pO2 67.8 L ABG Oxyhemoglobin 92.3 L ABG Sodium 133.7 L ABG Glucose 145 H Sodium Chloride BUN Creatinine Glucose 133 H Calcium Ferritin 1775.0 H AST ALT Alkaline Phosphatase Lactate Dehydrogenase 302 H C-Reactive Protein NT-Pro-B Natriuret Pep Albumin Arterial Blood Glucose 145 H Coronavirus (PCR) 10/31/20 11/01/20 11/01/20 05:15 06:27 06:27 Hgb MCH MCHC Plt Count Lymph % (Auto) Lymph # (Auto) Seg Neutrophils % Seg Neuts % (Manual) Lymphocytes % (Manual) Seg Neutrophils # Man Lymphocytes # (Manual) D-Dimer 406.47 H ABG pH POC ABG pCO2 POC ABG pO2 ABG Oxyhemoglobin ABG Sodium ABG Glucose Sodium 136 L Chloride BUN 21 H Creatinine 0.6 L Glucose Calcium 8.0 L Ferritin AST 61 H ALT 147 H Alkaline Phosphatase 148 H Lactate Dehydrogenase 303 H C-Reactive Protein NT-Pro-B Natriuret Pep Albumin 3.2 L Arterial Blood Glucose Coronavirus (PCR) 11/01/20 11/03/20 11/03/20 06:27 05:14 05:14 Hgb MCH MCHC Plt Count Lymph % (Auto) Lymph # (Auto) Seg Neutrophils % Seg Neuts % (Manual) Lymphocytes % (Manual) Seg Neutrophils # Man Lymphocytes # (Manual) D-Dimer 496.75 H ABG pH POC ABG pCO2 POC ABG pO2 ABG Oxyhemoglobin ABG Sodium ABG Glucose Sodium 134 L Chloride 96.3 L BUN Creatinine 0.4 L Glucose 110 H Calcium Ferritin 1667.0 H AST ALT Alkaline Phosphatase Lactate Dehydrogenase 404 H C-Reactive Protein NT-Pro-B Natriuret Pep Albumin Arterial Blood Glucose Coronavirus (PCR) 11/03/20 11/03/20 11/06/20 05:14 05:14 06:51 Hgb 15.8 H MCH 33 H MCHC 36 H Plt Count 648 H Lymph % (Auto) Lymph # (Auto) Seg Neutrophils % Seg Neuts % (Manual) Lymphocytes % (Manual) Seg Neutrophils # Man Lymphocytes # (Manual) D-Dimer ABG pH POC ABG pCO2 POC ABG pO2 ABG Oxyhemoglobin ABG Sodium ABG Glucose Sodium 130 L Chloride 92.8 L BUN Creatinine 0.6 L Glucose Calcium Ferritin 1631.0 H AST ALT Alkaline Phosphatase Lactate Dehydrogenase C-Reactive Protein NT-Pro-B Natriuret Pep Albumin Arterial Blood Glucose Coronavirus (PCR) Chest x-ray: image reviewed (persistent and slightly increased infiltrates) Allied health notes reviewed: nursing
--- NOTE | 2020-11-08 14:53 | XRay Report ---
CHEST 1 VIEW 11/08/2020 2:26 PM INDICATION / CLINICAL INFORMATION: SOB. COMPARISON: 11/04/2020 FINDINGS: SUPPORT DEVICES: None. HEART / MEDIASTINUM: Stable. LUNGS / PLEURA: Patchy and confluent airspace and interstitial disease throughout the lungs. Findings have mildly progressed when compared to 11/04/2020. No pneumothorax. ADDITIONAL FINDINGS: No significant additional findings. IMPRESSION: 1. Mild progression of airspace disease when compared to 11/04/2020. Signer Name: Kendall Marion MD Signed: 11/08/2020 2:48 PM Workstation Name: [id number]
[2020-11-08 15:13] LABS: C-Reactive Protein 24.8 mg/dL (0.00-1.30)
--- NOTE | 2020-11-08 16:38 | Progress Note ---
Assessment and Plan 44-year-old gentleman with no significant past medical history was brought to the emergency room 10/28/20 because of shortness of breath coughing and chest tightness, malaise and fatigue. Patient was diagnosed with Covid around 7 to 8 days ago. In the emergency room patient is found to have acute hypoxic respiratory failure and Covid pneumonia. On discussion patient spouse also was diagnosed with COVID-19 but with a more mild disease. There were plan to get the vaccine but got diagnosed with the disease prior. --Sepsis secondary to COVID19 --Acute hypoxic respiratory due to COVID-19 pneumonia --COVID19 Bilateral Pneumonia --Transaminitis due to COVID 19 --Persistent Cough --Anxiety Plan Continue supportive care, patient continues on high flow Oxygen now at 35 l/min. Continue dexamethasone 6 mg to complete 10 days. Remdesivir discontinued due to transaminitis being elevated Pulmonary consulted and input noted. ID input is appreciated. D-dimer 347.85 Blood cultures done 10/28/20, negative Started antitussives medication for cough Encourage prone positioning as tolerated Continue to monitor inflammatory markers DVT and GI prophylaxis Poor prognosis Daily clinical course: 10/31/20 patient had chest pain last night, now resolved. Still complain of shortness of breath. No more fever. He also complain of insomnia and requesting sleep aid. he is still on HFNC at 35 l/min. Will repeat CXR today to re-evaluate Covid-19 pneumonia. I discussed plan with patient and on phone. 11/01 Patient with acute respiratory failure due to Covid-19 pneumonia. Still has shortness of breath so Oxygen increased to 40 l/min yesterday. CXR done yesterday was unchanged showing bilateral pneumonia. Pulmonology following. I discussed management plan with on the phone. 11/02 Patient with acute respiratory failure due to Covid-19 pneumonia. Still has shortness of breath. He was started on BIPAP yesterday but has not been tolerating it. He used BIPAP only few hours. I discussed with Nurse to inform [employer]. I discussed with on phone. 11/03 Patient with acute respiratory failure due to Covid-19 pneumonia. Still has shortness of breath. He was started on BIPAP on 11/01 but has not been tolerating it. He used BIPAP only few hours. I discussed with Nurse to inform [employer]. I discussed with on phone. Today. still has shortness of breath. Asking for soft diet and to sit in chair. Will repeat CXR in am 11/04: Patient remains on 65% FiO2 today, cont to follow inflammatory markers. Wean off O2 as tolerated. Continue steroids to complete 10 days course. 11/05: Remains on 65% FiO2, continue to follow inflammatory markers. Continue empiric steroid. Follow ID recommendation. Pulmonary critical care following. 11/06: cont supportive care, wean off O2 as tolerated. pt on 65% Fio2 high flow o2 11/07: Remains on high flow O2, unable to wean off. called but unable to reach out to her. cont supportive care, completed empiric steroid. 11/08: Patient remains on high flow O2. His oxygen requirement increased up to 40L -100% Fio2. Discussed with the by phone in details. Patient and patient requesting repeat Covid test. Continue to wean off O2 as tolerated, continue nebulizer breathing treatment. Continue to follow clinically. Repeat inflammatory markers today appears to be stable. Patient with poor prognosis. Subjective Date of service: 11/08/20 Principal diagnosis: Acute hypoxemic resp failure; COVID-19; Pneumonia; Transaminitis; Anxiety Interval history: Patient seen and examined. Medical records and medication list reviewed. No acute event overnight noted by the RN. Patient complains of difficulty breathing. Remains on high flow O2 patient is tolerating diet. Discussed plan of care at bedside with patient. Objective - Exam Narrative Exam: Limited physical exam due to COVID-19 pandemic to minimize transmission of the disease and to preserve PPE. Vital reviewed and stable. GENERAL: well-developed well-nourished lying on bed appeared to be in no discomfort. HEENT: Normocephalic. Atraumatic. NECK: Supple. CHEST/LUNGS: breathing nonlabored. Patient on high flow O2, HEART/CARDIOVASCULAR: Heart rate stable on telemetry ABDOMEN: Visibly not distended SKIN: There is no rash NEURO: No focal motor deficit. Follows command. MUSCULOSKELETAL: No joint effusion EXTRIMITY: No swelling, no cyanosis or clubbing. PSYCH: Cooperative. - Constitutional Vitals: Vital Signs - 12hr 11/08/20 11/08/20 11/08/20 08:00 10:33 12:16 Temperature 100.1 F H Pulse Rate 120 H 108 H Respiratory 16 Rate Blood Pressure 120/68 110/74 O2 Sat by Pulse 95 95 Oximetry 11/08/20 14:27 Temperature Pulse Rate Respiratory Rate Blood Pressure O2 Sat by Pulse 83 L Oximetry - Labs CBC & Chem 7: 11/03/20 05:14 11/08/20 14:29 Labs: Abnormal lab results 11/08/20 11/08/20 11/08/20 Range/Units 14:29 14:29 14:29 D-Dimer 536.32 H (0-234) ng/mlDDU Glucose 130 H (75-100) mg/dL Ferritin 1809.0 H (30.0-300.0) ng/mL Lactate Dehydrogenase 301 H (91-180) units/L C-Reactive Protein 24.80 H (0.00-1.30) mg/dL HEART Score - HEART Score Troponin: Troponin T < 0.010 ng/mL (0.00-0.029) 10/31/20 17:45
[2020-11-09] MEDS ORDERED: ALPRAZolam 0.25 MG TAB PO ONE (05:00)
[2020-11-09] MEDS: HEPARIN 5,000 UNIT/1 ML VIAL SUB-Q SCH ×2 (05:00→14:02)
[2020-11-09] MEDS ORDERED: MORPHINE 2 MG/1 ML INJ IV ONE (07:53)
[2020-11-09] MEDS ORDERED: LORazepam 2 MG/ML VIAL ONE (07:59)
[2020-11-09] MEDS ORDERED: LORazepam 2 MG/ML VIAL IV ONE ×2 (08:00→10:00)
[2020-11-09] MEDS ORDERED: MORPHINE 4 MG/1 ML INJ IV ONE (08:00)
[2020-11-09] MEDS ORDERED: SUCCINYLCHOLINE CHLORIDE 200 MG/10 ML INJ MDV IV ONE (08:15)
[2020-11-09] MEDS ORDERED: ROCURONIUM 50 MG/5 ML INJ IV ONE (08:25)
[2020-11-09] MEDS ORDERED: SUCCINYLCHOLINE CHLORIDE 200 MG/10 ML INJ MDV ONE (08:26)
[2020-11-09] MEDS ORDERED: ETOMIDATE 20 MG/10 ML INJ IV ONE ×2 (08:26→10:00)
--- NOTE | 2020-11-09 08:56 | Event Note ---
Date: 11/09/20 I was asked by the hospitalist, Dr. Sainz, to come up to the IMCU to intubate this patient. It appears that this patient was admitted here on 10/28 and was found to be positive for COVID-19. Apparently the patient was on high flow oxygen and began having hypoxia. They attempted BiPAP but once again the patient was having oxygen desaturation into the 80s. I found this patient to be short of breath with tachypnea, accessory muscle use, and conversational dyspnea. He was tachycardic with a heart rate of about 140 bpm. His oxygen saturation was about 86% with a combination of high flow oxygen via nasal cannula and a nonrebreather. Respiratory therapy was at bedside and had the glide scope set up and available. The patient was given 20 mg of etomidate and 70 mg of succinylcholine for RSI. When there was appropriate sedation and paralysis, I used the 4 MAC blade on the glide scope and was able to visualize the cords. I was able to place a 7.5 ET tube through the vocal cords down to about 24 cm at the lips. The bulb was inflated with about 7 cc of air. There was good color change capnography. The patient received bag valve ventilation through the ET tube to bring his oxygen saturation up into the 90s. No obvious complications from this procedure. Another hospitalist, Dr. Christina, came to bedside to take over post intubation care.
[2020-11-09] MEDS ORDERED: fentaNYL 100 MCG/2 ML INJ IV PRN (09:39)
--- NOTE | 2020-11-09 09:55 | XRay Report ---
ABDOMEN 1 VIEW 11/09/2020 9:19 AM INDICATION / CLINICAL INFORMATION: ogt placement. COMPARISON: None available. FINDINGS: TUBES / LINES: Enteric tube crosses the gastroesophageal junction and terminates in the left upper qu adrant, satisfactory appearance. BOWEL GAS PATTERN: No significant abnormality. FREE AIR / EXTRALUMINAL GAS: None. ADDITIONAL FINDINGS: Diffuse bibasilar airspace disease. IMPRESSION: 1. Satisfactory appearance of the enteric tube. Signer Name: Kendall Marion MD Signed: 11/09/2020 9:51 AM Workstation Name: [id number]
[2020-11-09] MEDS: fentaNYL DRIP Premix 2,000 MCG/100 ML BAG IV SCH ×2 (09:56→15:55)
--- NOTE | 2020-11-09 09:56 | XRay Report ---
CHEST 1 VIEW 11/09/2020 9:14 AM INDICATION / CLINICAL INFORMATION: ETT placement. COMPARISON: 11/08/2020 FINDINGS: SUPPORT DEVICES: Interval placement of endotracheal tube with tip at the level of the clavicles. Sati sfactory appearance of the enteric tube. HEART / MEDIASTINUM: Stable. LUNGS / PLEURA: Moderate diffuse pulmonary airspace disease is overall unchanged. No pneumothorax. ADDITIONAL FINDINGS: No significant additional findings. IMPRESSION: 1. Satisfactory appearance of the endotracheal tube. No evidence of acute complication. 2. Unchanged pulmonary airspace disease. Signer Name: Kendall Marion MD Signed: 11/09/2020 9:52 AM Workstation Name: [id number]
[2020-11-09] MEDS ORDERED: SODIUM CHLORIDE 0.9% 1000 ML 1,000 ML IV ONE ×2 (11:49→13:00)
[2020-11-09] MEDS ORDERED: SODIUM CHLORIDE 0.9% 1000 ML 1,000 ML ONE (11:49)
[2020-11-09 11:58] LABS: Alanine Aminotransferase 72 units/L (7-56); Albumin 3.6 g/dL (3.9-5); BUN/Creatinine Ratio 23; Bilirubin,Direct 4.1 mg/dL (0-0.2); Blood Urea Nitrogen 21 mg/dL (9-20); Calcium 10.3 mg/dL (8.4-10.2); Hemolysis Index 67
[2020-11-09] MEDS ORDERED: NORepinephrine/NS 4 MG-250 ML 4 MG/250 ML BAG IV ONE (11:59)
[2020-11-09] MEDS ORDERED: D5W/0.9% NACL 1,000 ML IV SCH (12:00)
[2020-11-09 12:02] LABS: Hematocrit 51.1 % (35.5-45.6); Hemoglobin 17.9 gm/dl (11.8-15.2); Mean Corpuscular HGB Conc 35 % (32-34); Mean Corpuscular Volume 92 fl (84-94); Red Blood Count 5.57 M/mm3 (3.65-5.03); Red Cell Distribution Width 13.9 % (13.2-15.2)
[2020-11-09 12:06] LABS: Platelet Count 704 K/mm3 (140-440)
[2020-11-09] MEDS: PHENYLEPHRINE 100 MG in SODIUM CHLORIDE 0.9% 90 ML IV SCH ×2 (12:13→21:50)
[2020-11-09] MEDS: VASOPRESSIN 20 UNIT in SODIUM CHLORIDE 0.9% 100 ML IV SCH ×2 (12:14→21:50)
--- NOTE | 2020-11-09 12:27 | Event Note ---
Date: 11/09/20 patient was on 100% fiO2 but started to desaturate from last night he was placed on BiPAP and transferred to IMCU but he did not tolerate bipap he was then placed on NRB and high flow O2 He was becoming anxious and still desaturating patient was then electively intubated by ER doc for impending respiratory and cardiac arrest I called and updated her by phone I also spoke with the and pt's brother in person with experimental psychologist in the unit in length Family was informed that patient is very critical with very poor prognosis family verbalized understanding Patient is full code Patient also initiated on NS bolus and ordered for pressor for hypotension PICC line ordered CC time 45 minutes
[2020-11-09 12:41] LABS: Total Cells Counted 100
[2020-11-09 12:42] LABS: Giant Platelets Few; Platelet Estimate Consistent w Auto; RBC Morphology Normal
[2020-11-09] MEDS: ASCORBIC ACID 500 MG TAB PO SCH ×2 (13:38→23:08)
[2020-11-09] MEDS: ASPIRIN 81 MG TAB CHEW PO SCH (13:38)
[2020-11-09] MEDS ORDERED: VANCOMYCIN 1,000 MG in SODIUM CHLORIDE 0.9% 500 ML 500 ML IV ONE (13:44)
--- NOTE | 2020-11-09 13:44 | Progress Note ---
Assessment and Plan Cultures: SARS CoV2 PCR: positive Blood culture: negative A/P: 44-year-old male with: #Shock: ?septic v/s COVID related. #Bilateral pneumonia: Secondary to COVID-19. Had completed abx, remdesivir and steroid course. #Acute hypoxic respiratory failure: worsened, now on the vent. #Transaminitis: probably secondary to COVID-19. Recs: -Patient is status post antibiotics, remdesivir and steroid course. Now with significant worsening of respiratory failure and leukocytosis. Will obtain blood cultures, respiratory cultures and start empiric cefepime and vancomycin -CRP worsened, will also restart steroids and give 1 dose of Actemra -Recheck procalcitonin in a.m. -prophylactic anticoagulation based on d-dimer per hospital protocol -trend ferritin, LDH, d-dimer, CRP every 2-3 days for risk stratification and to assess disease progression Angel Hernandez MD, FACP [facility] ([facility] O: [phone] F: [phone] Subjective Date of service: 11/09/20 Principal diagnosis: Acute hypoxemic resp failure; COVID-19; Pneumonia; Transaminitis; Anxiety Interval history: Patient with worsening respiratory status, now intubated and in ICU. Low-grade fever. On pressors. Objective - Exam Narrative Exam: Physical Exam (reviewed in chart to minimize risk of transmission) Constitutional: deferred Head, Ears, Nose: deferred Eyes: deferred Neck: deferred Oral: deferred Cardiovascular: deferred Respiratory: deferred GI: deferred Musculoskeletal: deferred Skin: deferred Hem/Lymphatic: deferred Psych: deferred Neurological: deferred - Constitutional Vitals: Vital Signs Temp Pulse Resp BP Pulse Ox 98.5 F 157 H 52 H 87/53 77 L 11/09/20 13:23 11/09/20 11:51 11/09/20 06:40 11/09/20 11:12 11/09/20 11:51 Temperature -Last 24 Hours Temperature 98.5 F Temperature 98.7 F Temperature 98.6 F Temperature 99.9 F Temperature 99.4 F - Labs CBC & Chem 7: 11/09/20 11:17 11/09/20 11:17 Labs: Abnormal lab results 11/08/20 11/08/20 11/08/20 Range/Units 14:29 14:29 14:29 WBC (4.5-11.0) K/mm3 RBC (3.65-5.03) M/mm3 Hgb (11.8-15.2) gm/dl Hct (35.5-45.6) % MCHC (32-34) % Plt Count (140-440) K/mm3 Seg Neuts % (Manual) (40.0-70.0) % Lymphocytes % (Manual) (13.4-35.0) % Seg Neutrophils # Man (1.8-7.7) K/mm3 Lymphocytes # (Manual) (1.2-5.4) K/mm3 D-Dimer 536.32 H (0-234) ng/mlDDU ABG pH (7.320-7.450) POC ABG pCO2 (32.0-48.0) mmHg POC ABG pO2 (83-108) mmHg ABG Oxyhemoglobin (94-98) ABG Sodium (136.0-145.0) mmol/L ABG Chloride (98-107) mmol/L ABG Glucose (65-95) mg/dL Sodium (137-145) mmol/L Potassium (3.6-5.0) mmol/L Chloride (98-107) mmol/L BUN (9-20) mg/dL Glucose 130 H (75-100) mg/dL POC Glucose (70-105) mg/dL Calcium (8.4-10.2) mg/dL Phosphorus (2.5-4.5) mg/dL Magnesium (1.7-2.3) mg/dL Ferritin 1809.0 H (30.0-300.0) ng/mL Total Bilirubin (0.1-1.2) mg/dL Direct Bilirubin (0-0.2) mg/dL AST (5-40) units/L ALT (7-56) units/L Alkaline Phosphatase (35-129) units/L Lactate Dehydrogenase 301 H (91-180) units/L Troponin T (0.00-0.029) ng/mL C-Reactive Protein 24.80 H (0.00-1.30) mg/dL Albumin (3.9-5) g/dL Arterial Blood Glucose (65-95) mg/dL 11/09/20 11/09/20 11/09/20 Range/Units 08:09 09:44 11:17 WBC 24.0 H (4.5-11.0) K/mm3 RBC 5.57 H (3.65-5.03) M/mm3 Hgb 17.9 H (11.8-15.2) gm/dl Hct 51.1 H (35.5-45.6) % MCHC 35 H (32-34) % Plt Count 704 H (140-440) K/mm3 Seg Neuts % (Manual) 95.0 H (40.0-70.0) % Lymphocytes % (Manual) 2.0 L (13.4-35.0) % Seg Neutrophils # Man 22.8 H (1.8-7.7) K/mm3 Lymphocytes # (Manual) 0.5 L (1.2-5.4) K/mm3 D-Dimer (0-234) ng/mlDDU ABG pH 7.512 H (7.320-7.450) POC ABG pCO2 27.7 L (32.0-48.0) mmHg POC ABG pO2 55.9 L 55.6 L (83-108) mmHg ABG Oxyhemoglobin 90.2 L 87.3 L (94-98) ABG Sodium 132.7 L 134.0 L (136.0-145.0) mmol/L ABG Chloride 96.0 L 97.0 L (98-107) mmol/L ABG Glucose 120 H 144 H (65-95) mg/dL Sodium (137-145) mmol/L Potassium (3.6-5.0) mmol/L Chloride (98-107) mmol/L BUN (9-20) mg/dL Glucose (75-100) mg/dL POC Glucose (70-105) mg/dL Calcium (8.4-10.2) mg/dL Phosphorus (2.5-4.5) mg/dL Magnesium (1.7-2.3) mg/dL Ferritin (30.0-300.0) ng/mL Total Bilirubin (0.1-1.2) mg/dL Direct Bilirubin (0-0.2) mg/dL AST (5-40) units/L ALT (7-56) units/L Alkaline Phosphatase (35-129) units/L Lactate Dehydrogenase (91-180) units/L Troponin T (0.00-0.029) ng/mL C-Reactive Protein (0.00-1.30) mg/dL Albumin (3.9-5) g/dL Arterial Blood Glucose 120 H 144 H (65-95) mg/dL 11/09/20 11/09/20 Range/Units 11:17 13:06 WBC (4.5-11.0) K/mm3 RBC (3.65-5.03) M/mm3 Hgb (11.8-15.2) gm/dl Hct (35.5-45.6) % MCHC (32-34) % Plt Count (140-440) K/mm3 Seg Neuts % (Manual) (40.0-70.0) % Lymphocytes % (Manual) (13.4-35.0) % Seg Neutrophils # Man (1.8-7.7) K/mm3 Lymphocytes # (Manual) (1.2-5.4) K/mm3 D-Dimer (0-234) ng/mlDDU ABG pH (7.320-7.450) POC ABG pCO2 (32.0-48.0) mmHg POC ABG pO2 (83-108) mmHg ABG Oxyhemoglobin (94-98) ABG Sodium (136.0-145.0) mmol/L ABG Chloride (98-107) mmol/L ABG Glucose (65-95) mg/dL Sodium 136 L (137-145) mmol/L Potassium 5.6 H D (3.6-5.0) mmol/L Chloride 93.1 L (98-107) mmol/L BUN 21 H (9-20) mg/dL Glucose 124 H (75-100) mg/dL POC Glucose 123 H (70-105) mg/dL Calcium 10.3 H D (8.4-10.2) mg/dL Phosphorus 6.40 H (2.5-4.5) mg/dL Magnesium 2.60 H (1.7-2.3) mg/dL Ferritin (30.0-300.0) ng/mL Total Bilirubin 4.90 H (0.1-1.2) mg/dL Direct Bilirubin 4.1 H (0-0.2) mg/dL AST 56 H (5-40) units/L ALT 72 H (7-56) units/L Alkaline Phosphatase 252 H (35-129) units/L Lactate Dehydrogenase (91-180) units/L Troponin T 0.092 H (0.00-0.029) ng/mL C-Reactive Protein (0.00-1.30) mg/dL Albumin 3.6 L (3.9-5) g/dL Arterial Blood Glucose (65-95) mg/dL
[2020-11-09] MEDS ORDERED: VANCOMYCIN PHARMACY TO DOSE IV SCH (14:00)
[2020-11-09] MEDS: CHOLECALCIFEROL (VIT D3) 5,000 UNIT TAB PO SCH (14:13)
[2020-11-09] MEDS: CEFEPIME/NS 2 GM/100 ML 2 GM/100 ML BAG IV SCH (14:14)
[2020-11-09] MEDS ORDERED: LIP THERAPY VASELINE TP PRN (14:37)
[2020-11-09] MEDS ORDERED: MIDAZOLAM 2 MG/2 ML INJ IV PRN (14:37)
[2020-11-09] MEDS ORDERED: MINERAL OIL/PETROLATUM, WHITE OPHTH OINT 3.5 GM OU PRN (14:37)
[2020-11-09] MEDS ORDERED: MIDAZOLAM 100 MG in SODIUM CHLORIDE 0.9% 80 ML IV SCH (15:00)
[2020-11-09] MEDS ORDERED: dexAMETHasone 4 MG/ML VIAL IV SCH (15:00)
[2020-11-09] MEDS ORDERED: TOCILIZUMAB 600 MG in SODIUM CHLORIDE 0.9% 100 ML IV ONE (15:45)
[2020-11-09] MEDS: VANCOMYCIN/NS 1 GM/250 ML 1 GM/250 ML BAG IV SCH (15:56)
--- NOTE | 2020-11-09 16:25 | Progress Note ---
Assessment and Plan 44-year-old gentleman with no significant past medical history was brought to the emergency room 10/28/20 because of shortness of breath coughing and chest tightness, malaise and fatigue. Patient was diagnosed with Covid around 7 to 8 days ago. In the emergency room patient is found to have acute hypoxic respiratory failure and Covid pneumonia, admitted for further Mx. --Sepsis secondary to COVID19 --Septic shock --Acute hypoxic respiratory due to COVID-19 pneumonia --COVID19 Bilateral Pneumonia --Transaminitis due to COVID 19 --Hyperkalemia, hyperphosphatemia --Anxiety Plan Continue supportive care, patient intubated today started on iv pressores, iv fluid Completed dexamethasone 6 mg to complete 10 days. Remdesivir discontinued due to transaminitis being elevated Pulmonary consulted and input noted. ID input is appreciated. Plan to initiate empiric antibiotics Blood cultures done 10/28/20, negative Continue to monitor inflammatory markers DVT and GI prophylaxis Poor prognosis The high probability of a clinically significant, sudden or life threatening deterioration of the [Rspiratory, CVS, [facility]] system(s) required my full and direct attention, intervention and personal management. The aggregate critical care time was [45] minutes. This time is in addition to time spent performing reported procedures but includes the following: [x] Data Review and interpretation [x] Patient assessment and monitoring of vital signs [x] Documentation [x] Medication orders and management Daily clinical course: 10/31/20 patient had chest pain last night, now resolved. Still complain of shortness of breath. No more fever. He also complain of insomnia and requesting sleep aid. he is still on HFNC at 35 l/min. Will repeat CXR today to re-evaluate Covid-19 pneumonia. I discussed plan with patient and on phone. 11/01 Patient with acute respiratory failure due to Covid-19 pneumonia. Still has shortness of breath so Oxygen increased to 40 l/min yesterday. CXR done yesterday was unchanged showing bilateral pneumonia. Pulmonology following. I discussed management plan with on the phone. 11/02 Patient with acute respiratory failure due to Covid-19 pneumonia. Still has shortness of breath. He was started on BIPAP yesterday but has not been tolerating it. He used BIPAP only few hours. I discussed with Nurse to inform [employer]. I discussed with on phone. 11/03 Patient with acute respiratory failure due to Covid-19 pneumonia. Still has shortness of breath. He was started on BIPAP on 11/01 but has not been tolerating it. He used BIPAP only few hours. I discussed with Nurse to inform [employer]case Trimmer. I discussed with on phone. Today. still has shortness of breath. Asking for soft diet and to sit in chair. Will repeat CXR in am 11/04: Patient remains on 65% FiO2 today, cont to follow inflammatory markers. Wean off O2 as tolerated. Continue steroids to complete 10 days course. 11/05: Remains on 65% FiO2, continue to follow inflammatory markers. Continue empiric steroid. Follow ID recommendation. Pulmonary critical care following. 11/06: cont supportive care, wean off O2 as tolerated. pt on 65% Fio2 high flow o2 11/07: Remains on high flow O2, unable to wean off. called but unable to reach out to her. cont supportive care, completed empiric steroid. 11/08: Patient remains on high flow O2. His oxygen requirement increased up to 40L -100% Fio2. Discussed with the by phone in details. Patient and patient requesting repeat Covid test. Continue to wean off O2 as tolerated, continue nebulizer breathing treatment. Continue to follow cli nically. Repeat inflammatory markers today appears to be stable. Patient with poor prognosis. 11/09: Patient was not able to maintain oxygenation with high flow oxygen and nonrebreather. He did not tolerate BiPAP. Patient was becoming agitated and very anxious. Transferred to [facility] and intubated this morning. Patient also developed hypotension -given fluid bolus and started on pressor support Called patient and updated in details along with a sales representative jewelry. Continue to follow inflammatory markers. Patient stable having difficulty to maintain oxygen saturation with ventilator requiring higher PEEP Discussed with Dr. Sampson Patient is critically ill with very poor prognosis. P atient family is fully aware of patient's critical condition. Repeat chest x- ray, plan to initiate bicarbonate drip for hyperkalemia. Repeat labs in the morning. Discussed with ID plan to initiate on empiric antibiotics. Subjective Date of service: 11/09/20 Principal diagnosis: Acute hypoxemic resp failure; COVID-19; Pneumonia; Transaminitis; Anxiety Interval history: Patient seen and examined. Medical records and medication list reviewed. Patient deteriorated overnight Was not able to maintain oxygenation with high flow oxygen and nonrebreather Transferred to [facility] and intubated this morning Patient also developed hypotension -given fluid bolus and started on pressor support Call patient and updated in details along with a sales representative jewelry Objective - Exam Narrative Exam: GENERAL: well-developed well-nourished male intubated and sedated HEENT: Normocephalic. Atraumatic. NECK: Supple. CHEST/LUNGS: Coarse breath sounds auscultated bilaterally, mechanically ventilated HEART/CARDIOVASCULAR: Tachycardic ABDOMEN: No distention or tenderness, bowel sounds positive SKIN: There is no rash NEURO: Intubated and sedated MUSCULOSKELETAL: No joint effusion EXTRIMITY: No swelling, no cyanosis or clubbing. PSYCH: Intubated - Constitutional Vitals: Vital Signs - 12hr 11/09/20 11/09/20 11/09/20 04:30 04:40 04:50 Temperature Pulse Rate 138 H 132 H 136 H Respiratory 42 H 50 H 55 H Rate Blood Pressure 112/82 112/82 112/82 O2 Sat by Pulse 89 92 89 Oximetry 11/09/20 11/09/20 11/09/20 05:00 05:10 05:20 Temperature Pulse Rate 129 H 130 H 134 H Respiratory 45 H 44 H 48 H Rate Blood Pressure 117/78 112/82 112/82 O2 Sat by Pulse 92 92 92 Oximetry 11/09/20 11/09/20 11/09/20 05:30 05:40 05:50 Temperature Pulse Rate 131 H 134 H 135 H Respiratory 47 H 43 H 42 H Rate Blood Pressure 112/82 112/82 112/82 O2 Sat by Pulse 91 91 90 Oximetry 11/09/20 11/09/20 11/09/20 06:00 06:10 06:20 Temperature Pulse Rate 146 H 136 H 139 H Respiratory 57 H 51 H 40 H Rate Blood Pressure 134/95 134/95 134/95 O2 Sat by Pulse 80 L 89 89 Oximetry 11/09/20 11/09/20 11/09/20 06:30 06:40 07:00 Temperature 98.7 F Pulse Rate 144 H 137 H Respiratory 42 H 52 H Rate Blood Pressure 134/95 134/95 O2 Sat by Pulse 88 91 Oximetry 11/09/20 11/09/20 11/09/20 07:43 09:07 11:12 Temperature Pulse Rate 159 H 155 H Respiratory Rate Blood Pressure 147/86 87/53 O2 Sat by Pulse 90 100 88 Oximetry 11/09/20 11/09/20 11/09/20 11:51 13:23 16:06 Temperature 98.5 F Pulse Rate 157 H 128 H Respiratory Rate Blood Pressure 112/58 O2 Sat by Pulse 77 L 65 L Oximetry - Labs CBC & Chem 7: 11/09/20 19:26 11/09/20 11:17 Labs: Abnormal lab results 11/09/20 11/09/20 11/09/20 Range/Units 08:09 09:44 11:17 WBC 24.0 H (4.5-11.0) K/mm3 RBC 5.57 H (3.65-5.03) M/mm3 Hgb 17.9 H (11.8-15.2) gm/dl Hct 51.1 H (35.5-45.6) % MCHC 35 H (32-34) % Plt Count 704 H (140-440) K/mm3 Seg Neuts % (Manual) 95.0 H (40.0-70.0) % Lymphocytes % (Manual) 2.0 L (13.4-35.0) % Seg Neutrophils # Man 22.8 H (1.8-7.7) K/mm3 Lymphocytes # (Manual) 0.5 L (1.2-5.4) K/mm3 ABG pH 7.512 H (7.320-7.450) POC ABG pCO2 27.7 L (32.0-48.0) mmHg POC ABG pO2 55.9 L 55.6 L (83-108) mmHg ABG Oxyhemoglobin 90.2 L 87.3 L (94-98) ABG Sodium 132.7 L 134.0 L (136.0-145.0) mmol/L ABG Potassium (3.40-4.50) mmol/L ABG Chloride 96.0 L 97.0 L (98-107) mmol/L ABG Glucose 120 H 144 H (65-95) mg/dL Sodium (137-145) mmol/L Potassium (3.6-5.0) mmol/L Chloride (98-107) mmol/L BUN (9-20) mg/dL Glucose (75-100) mg/dL POC Glucose (70-105) mg/dL Calcium (8.4-10.2) mg/dL Phosphorus (2.5-4.5) mg/dL Magnesium (1.7-2.3) mg/dL Total Bilirubin (0.1-1.2) mg/dL Direct Bilirubin (0-0.2) mg/dL AST (5-40) units/L ALT (7-56) units/L Alkaline Phosphatase (35-129) units/L Troponin T (0.00-0.029) ng/mL Albumin (3.9-5) g/dL Arterial Blood Glucose 120 H 144 H (65-95) mg/dL 11/09/20 11/09/20 11/09/20 Range/Units 11:17 13:06 14:29 WBC (4.5-11.0) K/mm3 RBC (3.65-5.03) M/mm3 Hgb (11.8-15.2) gm/dl Hct (35.5-45.6) % MCHC (32-34) % Plt Count (140-440) K/mm3 Seg Neuts % (Manual) (40.0-70.0) % Lymphocytes % (Manual) (13.4-35.0) % Seg Neutrophils # Man (1.8-7.7) K/mm3 Lymphocytes # (Manual) (1.2-5.4) K/mm3 ABG pH 7.265 L (7.320-7.450) POC ABG pCO2 51.5 H (32.0-48.0) mmHg POC ABG pO2 43.6 L (83-108) mmHg ABG Oxyhemoglobin 72.3 L (94-98) ABG Sodium 135.3 L (136.0-145.0) mmol/L ABG Potassium 4.6 H (3.40-4.50) mmol/L ABG Chloride (98-107) mmol/L ABG Glucose 154 H (65-95) mg/dL Sodium 136 L (137-145) mmol/L Potassium 5.6 H D (3.6-5.0) mmol/L Chloride 93.1 L (98-107) mmol/L BUN 21 H (9-20) mg/dL Glucose 124 H (75-100) mg/dL POC Glucose 123 H (70-105) mg/dL Calcium 10.3 H D (8.4-10.2) mg/dL Phosphorus 6.40 H (2.5-4.5) mg/dL Magnesium 2.60 H (1.7-2.3) mg/dL Total Bilirubin 4.90 H (0.1-1.2) mg/dL Direct Bilirubin 4.1 H (0-0.2) mg/dL AST 56 H (5-40) units/L ALT 72 H (7-56) units/L Alkaline Phosphatase 252 H (35-129) units/L Troponin T 0.092 H (0.00-0.029) ng/mL Albumin 3.6 L (3.9-5) g/dL Arterial Blood Glucose 154 H (65-95) mg/dL HEART Score - HEART Score Troponin: Troponin T 0.092 ng/mL (0.00-0.029) H 11/09/20 11:17
[2020-11-09] MEDS ORDERED: SODIUM BICARB 8.4% 50 MEQ/50 ML SYRINGE IV ONE ×3 (16:42→17:00)
[2020-11-09] MEDS ORDERED: EPINEPHrine 1 MG/10 ML SYRINGE ONE (16:42)
[2020-11-09] MEDS ORDERED: DEXTROSE 50% IN WATER (25GM) 50 ML SYRINGE IV ONE (16:42)
--- NOTE | 2020-11-09 18:25 | Progress Note ---
Assessment and Plan Acute hypoxemic respiratory failure COVID-19 Pneumonia due to COVID-19 virus Transaminitis Anxiety - begin IV Heparin for potential VTE - peep increased to 18 cm H2O ultimately - continue compensatory hyperventilation - continue vasopressin & neosynephrine; wean for target MAP > 65 mmHg - volume resuscitation - stop proning re: hemodynamic instability - begin IVF (NS&100/hr X 2 liters) after 500 mls bolus - get 2D ECHO and address - continue to wean supplemental oxygen for target O2 sat's > 92% acutely - VAP bundle addressed - continue lung protective strategies - continue bronchodilators with pulmonary hygiene per RT - continue Daily SAT and SBT assessment as tolerated - continue accuchecks with glycemic control per SSI (While critically ill target blood glucose of 140-180 mg/dL; avoid hypoglycemia) - sedation prn for target RASS 0 to -1 - wean per pulmonary driven protocols otherwise - avoid nephrotoxins, renally dose all medications - continue to avoid benzodiazepine's, reduce the possibility of delirium - complete AB's per ID rec's - prn analgesia per CPOT score - Maintenance of sleep-wake cycle, avoid delirium - enteral nutritional support at goal rate as tolerated - G.I. & VTE prophylaxis - PT/OT/ROM exercises - continue mobility protocols for pressure ulcer prophylaxis - Monitor hemodynamics closely - continue other care per attending / other consultants - discharge planning ongoing concurrently COVID SPECIFIC INTERVENTIONS - S/P Remdesivir as per ID/Pulmonary developed protocols - continue systemic steroids for severe COVID-19 infection empirically - follow repeat COVID tests results - zinc and vitamin C supplementation - Monitor inflammatory markers per facility protocol - ferritin, Ddimer, CRP - therapeutic anticoagulation per system Protocol based on d-dimer and clinical considerations (Will begin empiric full anticoagulation until VTE can be ruled o ut re: worsening hypoxemia - Continue contact and airborne isolation .... Re-evaluate in am & prn CONDITION: CRITICAL PROGNOSIS: GUARDED CODE STATUS: FULL CODE The high probability of a clinically significant, sudden or life-threatening deterioration of the [respiratory, cardiovascular, GI & neurologic] system(s) required my full and direct attention, intervention and personal management. The aggregate critical care time was [40] minutes without overlap. Time includes spent on; [x] Data Review and interpretation [x] Patient assessment and monitoring of vital signs [x] Documentation [x] Medication orders and management Subjective Date of service: 11/09/20 Principal diagnosis: Acute hypoxemic resp failure; COVID-19; Pneumonia; Transaminitis; Anxiety Interval history: Patient is seen today for: Acute hypoxemic respiratory failure; COVID-19; Pneumonia; Transaminitis; Anxiety Seen and examined at bedside; 24hour events reviewed; nursing and respiratory care staff consulted; no adverse overnight events reported to me; resting in bed ; s/p cardiac arrest this evening while proned; intubated earlier due to hypoxemia and hypotension; no gross bleeding Objective Vital Signs - 12hr 11/09/20 11/09/20 11/09/20 06:20 06:30 06:40 Temperature Pulse Rate 139 H 144 H 137 H Respiratory 40 H 42 H 52 H Rate Blood Pressure 134/95 134/95 134/95 O2 Sat by Pulse 89 88 91 Oximetry 11/09/20 11/09/20 11/09/20 07:00 07:43 09:07 Temperature 98.7 F Pulse Rate 159 H Respiratory Rate Blood Pressure 147/86 O2 Sat by Pulse 90 100 Oximetry 11/09/20 11/09/20 11/09/20 11:12 11:51 13:23 Temperature 98.5 F Pulse Rate 155 H 157 H Respiratory Rate Blood Pressure 87/53 O2 Sat by Pulse 88 77 L Oximetry 11/09/20 16:06 Temperature Pulse Rate 128 H Respiratory Rate Blood Pressure 112/58 O2 Sat by Pulse 65 L Oximetry Constitutional: appears uncomfortable, other (middle aged male with mildly increased respiratory effort at rest on MVS) Eyes: non-icteric ENT: oropharynx dry, other (ETT 24 cm KAZ) Neck: supple, no lymphadenopathy, no JVD Effort: mildly labored Ascultation: Bilateral: rales Percussion: Bilateral: not dull Cardiovascular: regular rate and rhythm Gastrointestinal: normoactive bowel sounds, soft, non-tender, non-distended Integumentary: normal Extremities: no cyanosis, no edema, pulses normal, no ischemia or petechiae Neurologic: normal mental status, non-focal exam, pupils equal and round, CN II- XII normal Psychiatric: other (sedated) CBC and BMP: 11/09/20 11:17 11/09/20 11:17 ABG, PT/INR, D-dimer: ABG ABG pH 7.037 (7.320-7.450) L 11/09/20 16:58 POC ABG pCO2 91.0 mmHg (32.0-48.0) H 11/09/20 16:58 POC ABG pO2 66.6 mmHg (83-108) L 11/09/20 16:58 POC ABG HCO3 23.9 11/09/20 16:58 ABG O2 Saturation 82.4 (0-100) 11/09/20 16:58 PT/INR, D-dimer PT 13.2 Sec. (12.2-14.9) 10/28/20 01:58 INR 1.01 (0.87-1.13) 10/28/20 01:58 D-Dimer 536.32 ng/mlDDU (0-234) H 11/08/20 14:29 Abnormal lab findings: Abnormal Labs 10/28/20 10/28/20 10/28/20 01:58 01:58 01:58 WBC RBC Hgb 15.4 H Hct MCH 33 H MCHC 36 H Plt Count Lymph % (Auto) Lymph # (Auto) Seg Neutrophils % Seg Neuts % (Manual) 97.0 H Lymphocytes % (Manual) 1.0 L Seg Neutrophils # Man 10.7 H Lymphocytes # (Manual) 0.1 L D-Dimer ABG pH POC ABG pCO2 POC ABG pO2 ABG Oxyhemoglobin ABG Sodium ABG Potassium ABG Chloride ABG Glucose Sodium 135 L Potassium Chloride 96.1 L BUN 8 L Creatinine 0.6 L Glucose 130 H POC Glucose Calcium Phosphorus Magnesium Ferritin Total Bilirubin Direct Bilirubin AST 45 H ALT 69 H Alkaline Phosphatase 189 H Lactate Dehydrogenase 339 H Troponin T C-Reactive Protein 32.80 H NT-Pro-B Natriuret Pep Albumin 3.6 L Arterial Blood Glucose Arterial Blood Ionized Calcium Coronavirus (PCR) 10/28/20 10/28/20 10/28/20 01:58 01:58 13:48 WBC RBC Hgb Hct MCH MCHC Plt Count Lymph % (Auto) Lymph # (Auto) Seg Neutrophils % Seg Neuts % (Manual) Lymphocytes % (Manual) Seg Neutrophils # Man Lymphocytes # (Manual) D-Dimer ABG pH POC ABG pCO2 POC ABG pO2 ABG Oxyhemoglobin ABG Sodium ABG Potassium ABG Chloride ABG Glucose Sodium 134 L Potassium Chloride 96.2 L BUN Creatinine 0.6 L Glucose 159 H POC Glucose Calcium Phosphorus Magnesium Ferritin 1631.0 H Total Bilirubin Direct Bilirubin AST 41 H ALT 59 H Alkaline Phosphatase 187 H Lactate Dehydrogenase Troponin T C-Reactive Protein NT-Pro-B Natriuret Pep 1661 H Albumin 3.6 L Arterial Blood Glucose Arterial Blood Ionized Calcium Coronavirus (PCR) 10/29/20 10/29/20 10/29/20 05:50 05:50 05:50 WBC RBC Hgb Hct MCH MCHC 36 H Plt Count Lymph % (Auto) 5.8 L Lymph # (Auto) 0.4 L Seg Neutrophils % 87.8 H Seg Neuts % (Manual) Lymphocytes % (Manual) Seg Neutrophils # Man Lymphocytes # (Manual) D-Dimer ABG pH POC ABG pCO2 POC ABG pO2 ABG Oxyhemoglobin ABG Sodium ABG Potassium ABG Chloride ABG Glucose Sodium Potassium Chloride BUN Creatinine 0.6 L Glucose 143 H POC Glucose Calcium Phosphorus Magnesium Ferritin Total Bilirubin Direct Bilirubin AST 59 H ALT 71 H Alkaline Phosphatase 159 H Lactate Dehydrogenase Troponin T C-Reactive Protein 19.90 H NT-Pro-B Natriuret Pep Albumin 3.0 L Arterial Blood Glucose Arterial Blood Ionized Calcium Coronavirus (PCR) 10/29/20 10/30/20 10/30/20 Unknown 05:46 05:46 WBC RBC Hgb Hct MCH MCHC Plt Count Lymph % (Auto) Lymph # (Auto) Seg Neutrophils % Seg Neuts % (Manual) Lymphocytes % (Manual) Seg Neutrophils # Man Lymphocytes # (Manual) D-Dimer 347.85 H ABG pH POC ABG pCO2 POC ABG pO2 ABG Oxyhemoglobin ABG Sodium ABG Potassium ABG Chloride ABG Glucose Sodium Potassium Chloride BUN Creatinine 0.6 L Glucose 133 H POC Glucose Calcium 8.3 L Phosphorus Magnesium Ferritin Total Bilirubin Direct Bilirubin AST 52 H ALT 82 H Alkaline Phosphatase 144 H Lactate Dehydrogenase Troponin T C-Reactive Protein NT-Pro-B Natriuret Pep Albumin 3.1 L Arterial Blood Glucose Arterial Blood Ionized Calcium Coronavirus (PCR) Positive A 10/30/20 10/30/20 10/30/20 05:46 05:46 16:15 WBC RBC Hgb Hct MCH MCHC Plt Count Lymph % (Auto) Lymph # (Auto) Seg Neutrophils % Seg Neuts % (Manual) Lymphocytes % (Manual) Seg Neutrophils # Man Lymphocytes # (Manual) D-Dimer ABG pH 7.467 H POC ABG pCO2 31.8 L POC ABG pO2 67.8 L ABG Oxyhemoglobin 92.3 L ABG Sodium 133.7 L ABG Potassium ABG Chloride ABG Glucose 145 H Sodium Potassium Chloride BUN Creatinine Glucose 133 H POC Glucose Calcium Phosphorus Magnesium Ferritin 1775.0 H Total Bilirubin Direct Bilirubin AST ALT Alkaline Phosphatase Lactate Dehydrogenase 302 H Troponin T C-Reactive Protein NT-Pro-B Natriuret Pep Albumin Arterial Blood Glucose 145 H Arterial Blood Ionized Calcium Coronavirus (PCR) 10/31/20 11/01/20 11/01/20 05:15 06:27 06:27 WBC RBC Hgb Hct MCH MCHC Plt Count Lymph % (Auto) Lymph # (Auto) Seg Neutrophils % Seg Neuts % (Manual) Lymphocytes % (Manual) Seg Neutrophils # Man Lymphocytes # (Manual) D-Dimer 406.47 H ABG pH POC ABG pCO2 POC ABG pO2 ABG Oxyhemoglobin ABG Sodium ABG Potassium ABG Chloride ABG Glucose Sodium 136 L Potassium Chloride BUN 21 H Creatinine 0.6 L Glucose POC Glucose Calcium 8.0 L Phosphorus Magnesium Ferritin Total Bilirubin Direct Bilirubin AST 61 H ALT 147 H Alkaline Phosphatase 148 H Lactate Dehydrogenase 303 H Troponin T C-Reactive Protein NT-Pro-B Natriuret Pep Albumin 3.2 L Arterial Blood Glucose Arterial Blood Ionized Calcium Coronavirus (PCR) 11/01/20 11/03/20 11/03/20 06:27 05:14 05:14 WBC RBC Hgb Hct MCH MCHC Plt Count Lymph % (Auto) Lymph # (Auto) Seg Neutrophils % Seg Neuts % (Manual) Lymphocytes % (Manual) Seg Neutrophils # Man Lymphocytes # (Manual) D-Dimer 496.75 H ABG pH POC ABG pCO2 POC ABG pO2 ABG Oxyhemoglobin ABG Sodium ABG Potassium ABG Chloride ABG Glucose Sodium 134 L Potassium Chloride 96.3 L BUN Creatinine 0.4 L Glucose 110 H POC Glucose Calcium Phosphorus Magnesium Ferritin 1667.0 H Total Bilirubin Direct Bilirubin AST ALT Alkaline Phosphatase Lactate Dehydrogenase 404 H Troponin T C-Reactive Protein NT-Pro-B Natriuret Pep Albumin Arterial Blood Glucose Arterial Blood Ionized Calcium Coronavirus (PCR) 11/03/20 11/03/20 11/06/20 05:14 05:14 06:51 WBC RBC Hgb 15.8 H Hct MCH 33 H MCHC 36 H Plt Count 648 H Lymph % (Auto) Lymph # (Auto) Seg Neutrophils % Seg Neuts % (Manual) Lymphocytes % (Manual) Seg Neutrophils # Man Lymphocytes # (Manual) D-Dimer ABG pH POC ABG pCO2 POC ABG pO2 ABG Oxyhemoglobin ABG Sodium ABG Potassium ABG Chloride ABG Glucose Sodium 130 L Potassium Chloride 92.8 L BUN Creatinine 0.6 L Glucose POC Glucose Calcium Phosphorus Magnesium Ferritin 1631.0 H Total Bilirubin Direct Bilirubin AST ALT Alkaline Phosphatase Lactate Dehydrogenase Troponin T C-Reactive Protein NT-Pro-B Natriuret Pep Albumin Arterial Blood Glucose Arterial Blood Ionized Calcium Coronavirus (PCR) 11/08/20 11/08/20 11/08/20 14:29 14:29 14:29 WBC RBC Hgb Hct MCH MCHC Plt Count Lymph % (Auto) Lymph # (Auto) Seg Neutrophils % Seg Neuts % (Manual) Lymphocytes % (Manual) Seg Neutrophils # Man Lymphocytes # (Manual) D-Dimer 536.32 H ABG pH POC ABG pCO2 POC ABG pO2 ABG Oxyhemoglobin ABG Sodium ABG Potassium ABG Chloride ABG Glucose Sodium Potassium Chloride BUN Creatinine Glucose 130 H POC Glucose Calcium Phosphorus Magnesium Ferritin 1809.0 H Total Bilirubin Direct Bilirubin AST ALT Alkaline Phosphatase Lactate Dehydrogenase 301 H Troponin T C-Reactive Protein 24.80 H NT-Pro-B Natriuret Pep Albumin Arterial Blood Glucose Arterial Blood Ionized Calcium Coronavirus (PCR) 11/09/20 11/09/20 11/09/20 08:09 09:44 11:17 WBC 24.0 H RBC 5.57 H Hgb 17.9 H Hct 51.1 H MCH MCHC 35 H Plt Count 704 H Lymph % (Auto) Lymph # (Auto) Seg Neutrophils % Seg Neuts % (Manual) 95.0 H Lymphocytes % (Manual) 2.0 L Seg Neutrophils # Man 22.8 H Lymphocytes # (Manual) 0.5 L D-Dimer ABG pH 7.512 H POC ABG pCO2 27.7 L POC ABG pO2 55.9 L 55.6 L ABG Oxyhemoglobin 90.2 L 87.3 L ABG Sodium 132.7 L 134.0 L ABG Potassium ABG Chloride 96.0 L 97.0 L ABG Glucose 120 H 144 H Sodium Potassium Chloride BUN Creatinine Glucose POC Glucose Calcium Phosphorus Magnesium Ferritin Total Bilirubin Direct Bilirubin AST ALT Alkaline Phosphatase Lactate Dehydrogenase Troponin T C-Reactive Protein NT-Pro-B Natriuret Pep Albumin Arterial Blood Glucose 120 H 144 H Arterial Blood Ionized Calcium Coronavirus (PCR) 11/09/20 11/09/20 11/09/20 11:17 13:06 14:29 WBC RBC Hgb Hct MCH MCHC Plt Count Lymph % (Auto) Lymph # (Auto) Seg Neutrophils % Seg Neuts % (Manual) Lymphocytes % (Manual) Seg Neutrophils # Man Lymphocytes # (Manual) D-Dimer ABG pH 7.265 L POC ABG pCO2 51.5 H POC ABG pO2 43.6 L ABG Oxyhemoglobin 72.3 L ABG Sodium 135.3 L ABG Potassium 4.6 H ABG Chloride ABG Glucose 154 H Sodium 136 L Potassium 5.6 H D Chloride 93.1 L BUN 21 H Creatinine Glucose 124 H POC Glucose 123 H Calcium 10.3 H D Phosphorus 6.40 H Magnesium 2.60 H Ferritin Total Bilirubin 4.90 H Direct Bilirubin 4.1 H AST 56 H ALT 72 H Alkaline Phosphatase 252 H Lactate Dehydrogenase Troponin T 0.092 H C-Reactive Protein NT-Pro-B Natriuret Pep Albumin 3.6 L Arterial Blood Glucose 154 H Arterial Blood Ionized Calcium Coronavirus (PCR) 11/09/20 16:58 WBC RBC Hgb Hct MCH MCHC Plt Count Lymph % (Auto) Lymph # (Auto) Seg Neutrophils % Seg Neuts % (Manual) Lymphocytes % (Manual) Seg Neutrophils # Man Lymphocytes # (Manual) D-Dimer ABG pH 7.037 L POC ABG pCO2 91.0 H POC ABG pO2 66.6 L ABG Oxyhemoglobin 81.6 L ABG Sodium ABG Potassium 7.3 H ABG Chloride 96.0 L ABG Glucose Sodium Potassium Chloride BUN Creatinine Glucose POC Glucose Calcium Phosphorus Magnesium Ferritin Total Bilirubin Direct Bilirubin AST ALT Alkaline Phosphatase Lactate Dehydrogenase Troponin T C-Reactive Protein NT-Pro-B Natriuret Pep Albumin Arterial Blood Glucose Arterial Blood Ionized Calcium 4.2 L Coronavirus (PCR) Chest x-ray: image reviewed (increased bilateral infiltrates; ETT in place) Allied health notes reviewed: nursing
[2020-11-09] MEDS ORDERED: HEPARIN 10,000 UNITS/10 ML VIAL IV PRN (18:27)
[2020-11-09] MEDS ORDERED: HEPARIN/ 0.45% NACL DRIP 25,000 UNIT/500 ML BAG IV SCH (19:00)
[2020-11-09] MEDS ORDERED: NORepinephrine/NS 4 MG-250 ML 4 MG/250 ML BAG IV SCH (19:00)
[2020-11-09] MEDS ORDERED: SODIUM CHLORIDE 0.9% 1000 ML 500 ML IV ONE (19:27)
[2020-11-09] MEDS ORDERED: SODIUM CHLORIDE 0.9% 1000 ML 1,000 ML IV SCH (19:30)
[2020-11-09 19:39] LABS: Hematocrit 38.8 % (35.5-45.6); Hemoglobin 13.7 gm/dl (11.8-15.2)
[2020-11-09 19:49] LABS: INR 2.43 (0.87-1.13)
[2020-11-09 19:50] LABS: Partial Thromboplastin Time 52.5 Sec. (24.2-36.6)
--- NOTE | 2020-11-09 19:53 | XRay Report ---
CHEST 1 VIEW 11/09/2020 6:16 PM INDICATION / CLINICAL INFORMATION: Pneumothorax. COMPARISON: None available. FINDINGS: SUPPORT DEVICES: Stable appearance of the endotracheal tube and interval placement of a left-sided ce ntral venous catheter with tip at the distal SVC. HEART / MEDIASTINUM: Moderate pneumomediastinum. No mediastinal shift. LUNGS / PLEURA: Medium-sized right-sided pneumothorax. Diffuse interstitial/airspace disease. No defi nite left in the thorax. ADDITIONAL FINDINGS: Extensive subcutaneous emphysema in the cervical region. IMPRESSION: 1. Moderate pneumomediastinum and a medium-sized right-sided pneumothorax. No definite left-sided pne umothorax or mediastinal shift. 2. Diffuse airspace/interstitial disease. 3. Extensive subcutaneous emphysema in the cervical region. CRITICAL RESULT: Time of Discovery (BOX COVERER HAND/CDT): 1839 Time of Communication (BOX COVERER HAND/CDT): 1844 Licensed Practitioner Receiving Report: Aylin Lawrence RN Read-Back Performed: Yes. Signer Name: Kendall Marion MD Signed: 11/09/2020 7:48 PM Workstation Name: [id number]
[2020-11-09] MEDS: NORepinephrine/NS 8 MG-250 ML 8 MG/250 ML INFUS..BTL IV SCH (20:59)
[2020-11-09] MEDS ORDERED: FAMOTIDINE 20 MG/2 ML INJ IV SCH (22:00)
[2020-11-09] MEDS ORDERED: SENNOSIDES/DOCUSATE SODIUM 8.6/50 MG TAB FEEDTUBE SCH (22:00)
--- NOTE | 2020-11-09 22:29 | Consultation ---
History of Present Illness Consult date: 11/09/20 Reason for consult: chest tube - History of present illness History of present illness: 44 year old COVID+ maled admitted to hospital 12 days ago with shortness of breath. He has been managed in the ICU when he coded earlier today requiring intubation and resuscitation. CXR after intubation showed pneumomediastinum and moderate sized pneumothorax. surgery consulted for chest tube placement. Medications and Allergies Allergies Allergy/AdvReac Type Severity Reaction Status Date / Time No Known Allergies Allergy Verified 10/28/20 01:30 Home Medications Medication Instructions Recorded Confirmed Last Taken Type Aspirin BABY CHEW TAB 81 mg PO DAILY 10/28/20 10/28/20 Unknown History Metoprolol 12.5 mg PO BID 10/28/20 10/28/20 10/26/20 History Vitamin C 1 tab PO DAILY 10/28/20 10/28/20 10/26/20 History Active Meds: Active Medications Acetaminophen (Acetaminophen 325 Mg Tab) 650 mg PO Q4H PRN PRN Reason: Pain MILD(1-3)/Fever >100.5/RIVERA Last Admin: 11/06/20 13:03 Dose: 650 mg Documented by: Albuterol (Albuterol 2.5 Mg/3 Ml Nebu) 2.5 mg IH Q4HRT PRN PRN Reason: Shortness Of Breath Ascorbic Acid (Ascorbic Acid 500 Mg Tab) 1,000 mg PO BID [facility] Last Admin: 11/09/20 13:38 Dose: 1,000 mg Documented by: Aspirin (Aspirin 81 Mg Tab Chew) 81 mg PO QDAY [facility] Last Admin: 11/09/20 13:38 Dose: 81 mg Documented by: Cholecalciferol (Cholecalciferol (Vit D3) 5,000 Unit Tab) 5,000 unit PO DAILY S Last Admin: 11/09/20 14:13 Dose: 5,000 unit Documented by: Dexamethasone (Dexamethasone 4 Mg/Ml Vial) 6 mg IV DAILY [facility] Stop: 11/19/20 14:59 Last Admin: 11/09/20 14:13 Dose: 6 mg Documented by: Famotidine (Famotidine 20 Mg/2 Ml Inj) 20 mg IV BID [facility] Fentanyl (Fentanyl 100 Mcg/2 Ml Inj) 50 mcg IV Q10MIN PRN PRN Reason: ANALGESIA Guaifenesin (Guaifenesin Dm 200/20 Mg Oral Liqd 10 Ml) 10 ml PO Q4H PRN PRN Reason: Cough Last Admin: 11/07/20 21:33 Dose: 10 ml Documented by: Heparin Sodium (Porcine) (Heparin 10,000 Units/10 Ml Vial) 2,800 unit 40 unit/kg (2800 unit) IV Q6H PRN PRN Reason: Anti-Xa Assay < 0.1 units/ml Hydralazine HCl (Hydralazine 20 Mg/1 Ml Inj) 10 mg IV Q6H PRN PRN Reason: htn Hydrocodone Bit/Homatropine Methylb (Hydrocodone/Homatropine 5-1.5mg /5 Ml Oral Liqd Unit Dose) 10 ml PO Q6H PRN PRN Reason: Cough Last Admin: 11/08/20 03:57 Dose: 10 ml Documented by: Hydrophilic Ointment (Lip Therapy Vaseline) 1 applic TP Q2HR PRN PRN Reason: Dry Lips Propofol (Diprivan 10 Mg/Ml) 1,000 mg in 100 mls @ 2.07 mls/hr IV TITR TERI; Protocol Last Titration: 11/09/20 16:42 Dose: 0 mcg/kg/min, 0 mls/hr Documented by: Fentanyl Citrate (Fentanyl Drip Premix) 2,000 mcg in 100 mls @ 3.45 mls/hr IV TITR TERI; Protocol Last Titration: 11/09/20 16:42 Dose: 0 mcg/kg/hr, 0 mls/hr Documented by: Dextrose/Sodium Chloride (D5ns) 1,000 mls @ 100 mls/hr IV DIRECT TERI Last Admin: 11/09/20 13:40 Dose: 100 mls/hr Documented by: Vasopressin 20 unit/ Sodium (Chloride) 101 mls @ 9.09 mls/hr IV TITR TERI Last Admin: 11/09/20 21:50 Dose: 0.03 units/min, 9.09 mls/hr Documented by: Phenylephrine HCl 100 mg/ (Sodium Chloride) 100 mls @ 3 mls/hr IV TITR TERI; Protocol Last Admin: 11/09/20 21:50 Dose: 400 mcg/min, 24 mls/hr Documented by: Cefepime HCl (Cefepime/Ns 2 Gm/100 Ml) 2 gm in 100 mls @ 200 mls/hr IV Q12H TERI; Protocol Last Admin: 11/09/20 14:14 Dose: 200 mls/hr Documented by: Vancomycin HCl (Vancomycin/Ns 1 Gm/250 Ml) 1 gm in 250 mls @ 125 mls/hr IV Q12H TERI; Protocol Last Admin: 11/09/20 15:56 Dose: 125 mls/hr Documented by: Midazolam HCl 100 mg/ Sodium (Chloride) 100 mls @ 2 mls/hr IV TITR TERI; Protocol Last Titration: 11/09/20 16:42 Dose: 0 mg/hr, 0 mls/hr Documented by: Heparin Sodium/Sodium Chloride (Heparin/ 0.45% Nacl-25,000 Unit/500 Ml) 25,000 unit in 500 mls @ 20 mls/hr IV TITR TERI; Protocol Sodium Chloride (Nacl 0.9% 1000 Ml) 1,000 mls @ 100 mls/hr IV DIRECT TERI Stop: 11/11/20 05:29 Last Admin: 11/09/20 19:31 Dose: 100 mls/hr Documented by: NORepinephrine/NS 8 MG-250 ML (Norepinephrine/Ns 8 Mg-250 Ml (Double Conc)) 8 mg in 250 mls @ 3.75 mls/hr IV TITRATE TERI; Protocol Last Titration: 11/09/20 21:51 Dose: 18 mcg/min, 33.75 mls/hr Documented by: Metoprolol Tartrate (Metoprolol Tartrate 25 Mg Tab) 12.5 mg PO BID TERI Last Admin: 11/08/20 22:08 Dose: 12.5 mg Documented by: Midazolam HCl (Midazolam 2 Mg/2 Ml Inj) 2 mg IV Q10MIN PRN PRN Reason: Sedation Last Admin: 11/09/20 15:10 Dose: 2 mg Documented by: Multi-Ingred Cream/Lotion/Oil/Oint (Mineral Oil/Petrolatum, White Ophth Oint 3.5 Gm) 1 applic OU Q4HR PRN PRN Reason: Dry Eye(s) Ondansetron HCl (Ondansetron 4 Mg/2 Ml Inj) 4 mg IV Q8H PRN PRN Reason: Nausea And Vomiting Senna/Docusate Sodium (Sennosides/Docusate Sodium 8.6/50 Mg Tab) 1 tab FEEDTUBE BID TERI Sodium Chloride (Sodium Chloride 0.9% 10 Ml Flush Syringe) 10 ml IV BID TERI Last Admin: 11/08/20 22:10 Dose: 10 ml Documented by: Sodium Chloride (Sodium Chloride 0.9% 10 Ml Flush Syringe) 10 ml IV PRN PRN PRN Reason: LINE FLUSH Zinc Sulfate (Zinc Sulfate 220 Mg Cap) 220 mg PO QDAY [facility] Last Admin: 11/08/20 10:36 Dose: 220 mg Documented by: Review of Systems ROS unobtainable: due to endotracheal tube Exam Vital Signs Temp Pulse Resp BP Pulse Ox 98.5 F 109 H 40 H 133/92 98 10/28/20 01:20 10/28/20 01:20 10/28/20 01:20 10/28/20 01:20 10/28/20 01:20 - General physical appearance Positive: well developed, no distress, no pain - Respiratory Positive: normal expansion, other (labored breathing on ventilator) Results - Labs 11/09/20 19:26 11/09/20 11:17 Abnormal lab results 11/09/20 11/09/20 11/09/20 Range/Units 08:09 09:44 11:17 WBC 24.0 H (4.5-11.0) K/mm3 RBC 5.57 H (3.65-5.03) M/mm3 Hgb 17.9 H (11.8-15.2) gm/dl Hct 51.1 H (35.5-45.6) % MCHC 35 H (32-34) % Plt Count 704 H (140-440) K/mm3 Seg Neuts % (Manual) 95.0 H (40.0-70.0) % Lymphocytes % (Manual) 2.0 L (13.4-35.0) % Seg Neutrophils # Man 22.8 H (1.8-7.7) K/mm3 Lymphocytes # (Manual) 0.5 L (1.2-5.4) K/mm3 PT (12.2-14.9) Sec. INR (0.87-1.13) APTT (24.2-36.6) Sec. ABG pH 7.512 H (7.320-7.450) POC ABG pCO2 27.7 L (32.0-48.0) mmHg POC ABG pO2 55.9 L 55.6 L (83-108) mmHg ABG Oxyhemoglobin 90.2 L 87.3 L (94-98) ABG Sodium 132.7 L 134.0 L (136.0-145.0) mmol/L ABG Potassium (3.40-4.50) mmol/L ABG Chloride 96.0 L 97.0 L (98-107) mmol/L ABG Glucose 120 H 144 H (65-95) mg/dL Sodium (137-145) mmol/L Potassium (3.6-5.0) mmol/L Chloride (98-107) mmol/L BUN (9-20) mg/dL Glucose (75-100) mg/dL POC Glucose (70-105) mg/dL Calcium (8.4-10.2) mg/dL Phosphorus (2.5-4.5) mg/dL Magnesium (1.7-2.3) mg/dL Total Bilirubin (0.1-1.2) mg/dL Direct Bilirubin (0-0.2) mg/dL AST (5-40) units/L ALT (7-56) units/L Alkaline Phosphatase (35-129) units/L Troponin T (0.00-0.029) ng/mL Albumin (3.9-5) g/dL Arterial Blood Glucose 120 H 144 H (65-95) mg/dL Arterial Blood Ionized Calcium (4.6-5.3) mg/dL 11/09/20 11/09/20 11/09/20 Range/Units 11:17 13:06 14:29 WBC (4.5-11.0) K/mm3 RBC (3.65-5.03) M/mm3 Hgb (11.8-15.2) gm/dl Hct (35.5-45.6) % MCHC (32-34) % Plt Count (140-440) K/mm3 Seg Neuts % (Manual) (40.0-70.0) % Lymphocytes % (Manual) (13.4-35.0) % Seg Neutrophils # Man (1.8-7.7) K/mm3 Lymphocytes # (Manual) (1.2-5.4) K/mm3 PT (12.2-14.9) Sec. INR (0.87-1.13) APTT (24.2-36.6) Sec. ABG pH 7.265 L (7.320-7.450) POC ABG pCO2 51.5 H (32.0-48.0) mmHg POC ABG pO2 43.6 L (83-108) mmHg ABG Oxyhemoglobin 72.3 L (94-98) ABG Sodium 135.3 L (136.0-145.0) mmol/L ABG Potassium 4.6 H (3.40-4.50) mmol/L ABG Chloride (98-107) mmol/L ABG Glucose 154 H (65-95) mg/dL Sodium 136 L (137-145) mmol/L Potassium 5.6 H D (3.6-5.0) mmol/L Chloride 93.1 L (98-107) mmol/L BUN 21 H (9-20) mg/dL Glucose 124 H (75-100) mg/dL POC Glucose 123 H (70-105) mg/dL Calcium 10.3 H D (8.4-10.2) mg/dL Phosphorus 6.40 H (2.5-4.5) mg/dL Magnesium 2.60 H (1.7-2.3) mg/dL Total Bilirubin 4.90 H (0.1-1.2) mg/dL Direct Bilirubin 4.1 H (0-0.2) mg/dL AST 56 H (5-40) units/L ALT 72 H (7-56) units/L Alkaline Phosphatase 252 H (35-129) units/L Troponin T 0.092 H (0.00-0.029) ng/mL Albumin 3.6 L (3.9-5) g/dL Arterial Blood Glucose 154 H (65-95) mg/dL Arterial Blood Ionized Calcium (4.6-5.3) mg/dL 11/09/20 11/09/20 11/09/20 Range/Units 16:58 19:26 19:26 WBC (4.5-11.0) K/mm3 RBC (3.65-5.03) M/mm3 Hgb (11.8-15.2) gm/dl Hct (35.5-45.6) % MCHC (32-34) % Plt Count 556 H (140-440) K/mm3 Seg Neuts % (Manual) (40.0-70.0) % Lymphocytes % (Manual) (13.4-35.0) % Seg Neutrophils # Man (1.8-7.7) K/mm3 Lymphocytes # (Manual) (1.2-5.4) K/mm3 PT 26.9 H (12.2-14.9) Sec. INR 2.43 H (0.87-1.13) APTT 52.5 H (24.2-36.6) Sec. ABG pH 7.037 L (7.320-7.450) POC ABG pCO2 91.0 H (32.0-48.0) mmHg POC ABG pO2 66.6 L (83-108) mmHg ABG Oxyhemoglobin 81.6 L (94-98) ABG Sodium (136.0-145.0) mmol/L ABG Potassium 7.3 H (3.40-4.50) mmol/L ABG Chloride 96.0 L (98-107) mmol/L ABG Glucose (65-95) mg/dL Sodium (137-145) mmol/L Potassium (3.6-5.0) mmol/L Chloride (98-107) mmol/L BUN (9-20) mg/dL Glucose (75-100) mg/dL POC Glucose (70-105) mg/dL Calcium (8.4-10.2) mg/dL Phosphorus (2.5-4.5) mg/dL Magnesium (1.7-2.3) mg/dL Total Bilirubin (0.1-1.2) mg/dL Direct Bilirubin (0-0.2) mg/dL AST (5-40) units/L ALT (7-56) units/L Alkaline Phosphatase (35-129) units/L Troponin T (0.00-0.029) ng/mL Albumin (3.9-5) g/dL Arterial Blood Glucose (65-95) mg/dL Arterial Blood Ionized Calcium 4.2 L (4.6-5.3) mg/dL Diabetes panel 11/09/20 Range/Units 11:17 Sodium 136 L (137-145) mmol/L Potassium 5.6 H D (3.6-5.0) mmol/L Chloride 93.1 L (98-107) mmol/L Carbon Dioxide 29 (22-30) mmol/L BUN 21 H (9-20) mg/dL Creatinine 0.9 (0.8-1.3) mg/dL Glucose 124 H (75-100) mg/dL Calcium 10.3 H D (8.4-10.2) mg/dL AST 56 H (5-40) units/L ALT 72 H (7-56) units/L Alkaline Phosphatase 252 H (35-129) units/L Total Protein 8.2 (6.3-8.2) g/dL Albumin 3.6 L (3.9-5) g/dL Calcium panel 11/09/20 Range/Units 11:17 Calcium 10.3 H D (8.4-10.2) mg/dL Phosphorus 6.40 H (2.5-4.5) mg/dL Albumin 3.6 L (3.9-5) g/dL Pituitary panel 11/09/20 Range/Units 11:17 Sodium 136 L (137-145) mmol/L Potassium 5.6 H D (3.6-5.0) mmol/L Chloride 93.1 L (98-107) mmol/L Carbon Dioxide 29 (22-30) mmol/L BUN 21 H (9-20) mg/dL Creatinine 0.9 (0.8-1.3) mg/dL Glucose 124 H (75-100) mg/dL Calcium 10.3 H D (8.4-10.2) mg/dL Adrenal panel 11/09/20 Range/Units 11:17 Sodium 136 L (137-145) mmol/L Potassium 5.6 H D (3.6-5.0) mmol/L Chloride 93.1 L (98-107) mmol/L Carbon Dioxide 29 (22-30) mmol/L BUN 21 H (9-20) mg/dL Creatinine 0.9 (0.8-1.3) mg/dL Glucose 124 H (75-100) mg/dL Calcium 10.3 H D (8.4-10.2) mg/dL Total Bilirubin 4.90 H (0.1-1.2) mg/dL AST 56 H (5-40) units/L ALT 72 H (7-56) units/L Alkaline Phosphatase 252 H (35-129) units/L Total Protein 8.2 (6.3-8.2) g/dL Albumin 3.6 L (3.9-5) g/dL - Imaging Chest x-ray: report reviewed, image reviewed Assessment and Plan 44 year old COVID + male with right sided pneumothorax and pneumomediastinum s/p intubation and resuscitation after code. unstable consent obtained from for placement of chest tube.
[2020-11-09] MEDS: ZINC SULFATE 220 MG CAP PO SCH (23:06)
[2020-11-09] MEDS: METOPROLOL TARTRATE 25 MG TAB PO SCH (23:06)
--- NOTE | 2020-11-09 23:39 | Procedure Note ---
Date of procedure: 11/09/20 Pre-op diagnosis: right pneumothorax Post-op diagnosis: same Procedure: [address] in right 4/5 intercostal space mid axillary line in sterile fashion. secured at 12cm marking at skin and attached to pleurovac on suction. Pt tolerated the procedure well Anesthesia: local Surgeon: WAQAS JERNIGAN Estimated blood loss: minimal Pathology: none Condition: critical Disposition: no change
[2020-11-10] MEDS: NORepinephrine/NS 8 MG-250 ML 8 MG/250 ML INFUS..BTL IV SCH ×4 (00:10→06:36)
[2020-11-10] MEDS: METOPROLOL TARTRATE 25 MG TAB PO SCH (00:42)
[2020-11-10] MEDS: PANTOPRAZOLE 40 MG TAB PO SCH (00:43)
--- NOTE | 2020-11-10 00:43 | XRay Report ---
CHEST 1 VIEW, 11/09/2020 10:58 PM CLINICAL INFORMATION/INDICATION: Chest tube placement COMPARISON: Chest radiograph, 11/09/2020 at 7:08 PM FINDINGS: SUPPORT DEVICES: There has been interval placement of right-sided chest tube with tip projecting over the right midlung. Additional support tubes and lines remain in stable position. HEART: The cardiac silhouette is normal in size. LUNGS/PLEURA: There has been interval re-expansion of the right lung now with only minimal right-side d pneumothorax. Moderate pneumomediastinum is again noted. Diffuse bilateral predominantly interstiti al disease is unchanged. ADDITIONAL FINDINGS: Subcutaneous emphysema overlies the neck. IMPRESSION: 1. Placement of right-sided chest tube with interval reexpansion of the right lung. 2. Stable bilateralpredominantly interstitial disease. Signer Name: Sangeeta Cramer MD Signed: 11/10/2020 12:38 AM Workstation Name: [id number]
[2020-11-10] MEDS ORDERED: SODIUM BICARB 8.4% 50 MEQ/50 ML SYRINGE IV ONE ×3 (01:00→07:39)
[2020-11-10] MEDS ORDERED: SODIUM BICARBONATE 150 MEQ in DEXTROSE 5% IN WATER 1,000 ML IV SCH (01:00)
[2020-11-10] MEDS ORDERED: EPINEPHrine 1 MG/1 ML 8 MG in SODIUM CHLORIDE 0.9% 250ML 242 ML IV SCH (01:00)
[2020-11-10] MEDS: PHENYLEPHRINE 100 MG in SODIUM CHLORIDE 0.9% 90 ML IV SCH ×2 (01:34→05:32)
[2020-11-10] MEDS: CEFEPIME/NS 2 GM/100 ML 2 GM/100 ML BAG IV SCH (02:13)
[2020-11-10] MEDS: VANCOMYCIN/NS 1 GM/250 ML 1 GM/250 ML BAG IV SCH (03:23)
--- NOTE | 2020-11-10 06:24 | Event Note ---
Date: 11/10/20 TAMANNA NUÑEZ called on patient who has been on admission for bilateral pneumonia possibly secondary to Covid, acute hypoxic respiratory failure, septic shock. Resuscitative measures were commenced according to ACLS protocol. Patient had about 4 rounds of epinephrine, calcium gluconate and sodium bicarbonate and also shocked with 300 J as indicated with return of spontaneous circulation. We will continue current management and follow-up on labs. Patient currently on 4 pressors. was promptly informed of patient's change in condition over the phone.
[2020-11-10] MEDS ORDERED: EPINEPHrine 30 MG/30 ML INJ IV ONE (07:24)
[2020-11-10] MEDS ORDERED: CALCIUM CHLORIDE 1,000 MG/10 ML SYRINGE IV ONE ×2 (07:24→07:39)
[2020-11-10] MEDS ORDERED: EPINEPHrine 1 MG/10 ML SYRINGE ONE (07:24)
[2020-11-10] MEDS ORDERED: AMIODARONE 150 MG/3 ML INJ IV ONE (07:24)
--- NOTE | 2020-11-10 07:57 | Event Note ---
Date: 11/10/20 TAMANNA NUÑEZ called on patient who has been on admission for bilateral pneumonia possibly secondary to Covid, acute hypoxic respiratory failure, septic shock. Resuscitative measures were commenced according to ACLS protocol. Per notation patient had coded early hours of this morning. See code sheet for full documentation of medication. Patients code was started by a different physician and I took over midway Despite full ACLS, Multiple rounds of epinephrine, 2 calcium gluconate and 2 sodium bicarbonate we were unable to restore spontanous circulation Time of 7:47AM was promptly informed of patient's change in condition and I discussed with her at the waiting room. Our condolence was expressed by my partner physician.
--- NOTE | 2020-11-10 08:00 | Death Note ---
Note Date of : 11/10/20 Time of : 07:47 Time Pronounced: 07:47 - Preliminary Cause of (problem) (1) Cardiopulmonary arrest Patient went into cardiac arrest, he was already intubated and had a right sided chest tube and on 4 pressors. Please see event note for full documentation. (2) Pneumothorax Preliminary cause of (3) Acute respiratory failure with hypoxia Preliminary cause of (4) COVID-19 Preliminary cause of
[2020-11-10 08:34] VITALS: BP 138/67
--- NOTE | 2020-11-10 08:36 | Event Note ---
Date: 11/09/20 patient coded this afternoon around 4:41 AcLS was initiated CC attending Dr Oswald was conducting the code Please see code sheet for details Patient responded to ACLS protocol and also was reviewed
--- NOTE | 2020-11-10 09:27 | Death Summary ---
Summary - Providers Date of service: 11/10/20 Consults: 10/28/20 01:25 Consult to Physician [CONS] Urgent Comment: Consulting Provider: EBER YOO Physician Instructions: Reason For Exam: covid 10/28/20 08:31 Consult to Physician [CONS] Routine Comment: Consulting Provider: ARIANNA BANKS Physician Instructions: Reason For Exam: -Qodenmb respiratory failure 10/28/20 15:02 Physical Therapy Evaluation and Treat [CONS] Stat Comment: Reason For Exam: eval and treat 11/09/20 09:45 PICC Line Insertion [Consult to PICC Line RN] [CONS] Stat Reason For Exam: multiple IV infusions Type Line:: PICC 11/09/20 14:37 Consult to Dietitian/Nutrition [CONS] Routine Physician Instructions: Reason For Exam: Reason for Consult: Evaluate nutritional intake 11/09/20 14:38 Consult to Dietitian/Nutrition [CONS] Routine Physician Instructions: Reason For Exam: Reason for Consult: Write/Manage Tube Feeding 11/09/20 21:33 Consult to Physician [CONS] Urgent Comment: Consulting Provider: WAQAS JERNIGAN Physician Instructions: Reason For Exam: Chest tube insertion Attending: MAJOR CATES - summary Date of admission: 10/28/20 13:37 Date of : 11/10/20 Significant findings: 44-year-old gentleman with no significant past medical history was brought to the emergency room 10/28/20 because of shortness of breath coughing and chest tightness, malaise and fatigue. Patient was diagnosed with Covid around 7 to 8 days ago. In the emergency room patient is found to have acute hypoxic respiratory failure and Covid pneumonia, admitted for further Mx. Daily clinical course: 10/29/20: Continue supportive care, patient continues on high flow at this time still remains anxious. Continue dexamethasone 6 mg to complete 10 days. Remdesivir discontinued due to transaminitis being elevated. Encourage prone positioning as tolerated Continue to monitor inflammatory markers. 10/30/20; patient continues on high flow Oxygen now at 35 l/min. He still has shortness of breath. Continue dexamethasone 6 mg to complete 10 days. ID following. Started antitussives medication for cough. 10/31/20 patient had chest pain last night, now resolved. Still complain of shortness of breath. No more fever. He also complain of insomnia and requesting sleep aid. he is still on HFNC at 35 l/min. Will repeat CXR today to re-evaluate Covid-19 pneumonia. discussed plan with patient and on phone. 11/01 Patient with acute respiratory failure due to Covid-19 pneumonia. Still has shortness of breath so Oxygen increased to 40 l/min yesterday. CXR done yesterday was unchanged showing bilateral pneumonia. Pulmonology following. discussed management plan with on the phone. 11/02 Patient with acute respiratory failure due to Covid-19 pneumonia. Still has shortness of breath. He was started on BIPAP yesterday but has not been tolerating it. He used BIPAP only few hours. discussed with Nurse to inform Optometric Technician. was updated on phone. 11/03 Patient with acute respiratory failure due to Covid-19 pneumonia. Still has shortness of breath. Remains on high flow O2. Asking for soft diet and to sit in chair. Will repeat CXR in am 11/04: Patient remains on 65% FiO2 today, cont to follow inflammatory markers. Wean off O2 as tolerated. Continue steroids to complete 10 days course. 11/05: Remains on 65% FiO2, continue to follow inflammatory markers. Continue empiric steroid. Follow ID recommendation. Pulmonary critical care following. 11/06: cont supportive care, wean off O2 as tolerated. pt on 65% Fio2 high flow o2 -unable to wean off 11/07: Remains on high flow O2, unable to wean off. called but unable to reach out to her. cont supportive care, completed empiric steroid. 11/08: Patient remains on high flow O2. His oxygen requirement increased up to 40L -100% Fio2. Discussed with the by phone in details. Patient and pat ient requesting repeat Covid test. Continue to wean off O2 as tolerated, continue nebulizer breathing treatment. Continue to follow clinically. Repeat inflammatory markers today appears to be stable. Patient with poor prognosis. 11/09: Patient was not able to maintain oxygenation with high flow oxygen and nonrebreather. He did not tolerate BiPAP. Patient was becoming agitated and very anxious. Code med was called and Transferred to [facility] last night and intubated this morning. Patient also developed hypotension -given fluid bolus and started on pressor support Called patient and updated in details along with a hydrologic modeler. Continue to follow inflammatory markers. Patient still having difficulty to maintain oxygen saturation with ventilator requiring higher PEEP Discussed with Dr. Oswald. Patient is critically ill with very poor prognosis. Patient family is fully aware of patient's critical condition. Repeat chest x- ray, plan to initiate bicarbonate drip for hyperkalemia. Repeat labs in the morning. Discussed with ID plan to initiate on empiric antibiotics. 6:34pm- patient coded this afternoon around 4:41. AcLS was initiated. CC attending Dr Oswald was conducting the code Please see code sheet for details. Patient responded to ACLS protocol and pulse was regained. 11:38pm: CXR after intubation showed pneumomediastinum and moderate sized pneumothorax. surgery consulted for chest tube placement. Fr chest tube placed by general surgery in right 4/5 intercostal space mid axillary line in sterile fashion. 11/10; patient was eventually placed on 4 pressors overnight, also developed pneumothorax and pneumomediastinum following cardiac arrest. He was placed on chest tube by general surgery. Patient went into cardiac arrest this am twice. ACLS was initiated and despite of full effort patient at 7:47. was called and informed. Cause of : Cardiorespiratory arrest due to severe sepsis with septic shock, acute respiratory failure, pneumothorax, bilateral pneumonia due to COVID-19.
--- NOTE | 2020-11-14 18:27 | Electrocardiograph Report ---
[facility] Test Date: 2020-10-31 Test Time: 02:50:33 Pat Name: BENITEZ GIRALDO Department: Room: A259 1 Gender: M Copy Operator: SON : 1975 Requested By: JULIO LY Order Number: [id number] Reading MD: Rober Rg Measurements Intervals [place] Rate: 76 P: 36 SD: 167 QRS: 7 QRSD: 120 T: -9 QT: 536 QTc: 602 Interpretive Statements Sinus rhythm IVCD, consider RBBB Probable left ventricular hypertrophy ST elevation secondary to LVH Prolonged QT interval Compared to ECG 10/28/2020 01:54:51 Left ventricular hypertrophy now present ST (T wave) deviation now present Prolonged QT interval now present Sinus tachycardia no longer present Electronically Signed On 11-14-2020 18:27:24 EDT by Rober gR
== END 2020-11-10 10:30 | DRG 208 ==
LOC: ED 01:10 → 3A 02:57 → OBSVTOIN 13:37 → IMCU 11-08 19:02 → CC1 11-09 10:04
PROVIDERS: ADMIT Hospitalist; ATTEND Internal Medicine
PROC: XW033E5 Introduction of Remdesivir Anti-infective into Peripheral Vein, Percutaneous Approach, New Technology Group 5 (ICD-10-PCS; principal; 2020-10-28)
PROC: 4A033R1 Measurement of Arterial Saturation, Peripheral, Percutaneous Approach (ICD-10-PCS; 2020-10-30)
PROC: 5A09457 Assistance with Respiratory Ventilation, 24-96 Consecutive Hours, Continuous Positive Airway Pressure (ICD-10-PCS; 2020-11-01)
PROC: 5A09357 Assistance with Respiratory Ventilation, Less than 24 Consecutive Hours, Continuous Positive Airway Pressure (ICD-10-PCS; 2020-11-05)
PROC: 5A09357 Assistance with Respiratory Ventilation, Less than 24 Consecutive Hours, Continuous Positive Airway Pressure (ICD-10-PCS; 2020-11-08)
PROC: 0W9930Z Drainage of Right Pleural Cavity with Drainage Device, Percutaneous Approach (ICD-10-PCS; 2020-11-09)
PROC: 5A1935Z Respiratory Ventilation, Less than 24 Consecutive Hours (ICD-10-PCS; 2020-11-09)
PROC: 0BH17EZ Insertion of Endotracheal Airway into Trachea, Via Natural or Artificial Opening (ICD-10-PCS; 2020-11-09)
PROC: 02HV33Z Insertion of Infusion Device into Superior Vena Cava, Percutaneous Approach (ICD-10-PCS; 2020-11-09)
DX: U07.1 COVID-19 (principal); A41.89 Other specified sepsis; J96.01 Acute respiratory failure with hypoxia; J12.82 Pneumonia due to coronavirus disease 2019; R65.21 Severe sepsis with septic shock; T79.7XXA Traumatic subcutaneous emphysema, initial encounter; J93.9 Pneumothorax, unspecified; E87.0 Hyperosmolality and hypernatremia; F41.9 Anxiety disorder, unspecified; D72.829 Elevated white blood cell count, unspecified; X58.XXXA Exposure to other specified factors, initial encounter; Y93.89 Activity, other specified; Y92.89 Other specified places as the place of occurrence of the external cause; Y99.8 Other external cause status; Z79.899 Other long term (current) drug therapy; Z79.82 Long term (current) use of aspirin; Z79.891 Long term (current) use of opiate analgesic; Z79.01 Long term (current) use of anticoagulants
CPT/HCPCS: 36415; 36600; 71045; 74018; 80048; 80053; 80076; 82140; 82728; 82805; 82947; 82962; 83615; 83735; 83880; 84100; 84145; 84484; 85007; 85014; 85018; 85025; 85027; 85049; 85379; 85610; 85730; 86140; 87040; 87070; 87205; 92950; 93005; 94002; 94003; 94640; 94660; 96365; 96367; 96375; G0378; J0171; J0282; J0330; J0456; J0692; J0696; J1100; J1644; J1940; J2060; J2250; J2270; J2370; J2704; J3010; J3370; J7030; J7042; J7050; J7070; J8540; U0003